=== PATIENT | female | born 2000 | race Caucasian/White ===

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

== ENCOUNTER 2019-01-13 18:00 | Emergency (ER) | payer MEDICAID, SELFPAY ==
[2019-01-13 18:01] VITALS: BP 137/78; PULSE 102; RESP 16; TEMP 36.7; O2SAT 98; BMI 31.6
--- NOTE | 2019-01-13 18:45 | CT_ITS ---
STUDY: CT ABDOMEN AND PELVIS WITH CONTRAST REASON FOR EXAM: Female, 18 years old. Nausea vomiting RADIATION DOSAGE (If Supplied By Facility): DLP = ( 1072.60 ) mGycm TECHNIQUE: Transaxial images were obtained from the dome of the diaphragm to the symphysis pubis with oral contrast. 100 ml of Isovue 300 contrast was administered. Sagittal and coronal images were reconstructed. Individualized dose optimization techniques were used for this CT. COMPARISON: CT abdomen and pelvis August 08, 2017 FINDINGS: The visualized lung bases are clear. The visualized portions of the heart and pericardium are within normal limits. There are no calcified gallstones present. The liver is within normal limits. There are no suspicious hepatic lesions. The spleen is normal in size. The pancreas is within normal limits. The adrenal glands are within normal limits. There are no obstructing renal stones. There is no hydronephrosis. There are no focal renal lesions. Normal visualized stomach. There is no evidence of bowel obstruction. There is mild lower pelvic edema adjacent to the rectosigmoid region at the cul-de-sac. The appendix is normal. The aorta is normal in caliber. There is no abdominal or pelvic free air, fluid collection or lymphadenopathy. There are no destructive osseous lesions. CT/Abdomen/Pelvis WITH Contrast IMPRESSION: Mild lower pelvic edema adjacent to the rectosigmoid region at the cul-de-sac. Considerations include physiologic, mild proctitis/colitis, or gynecological related process. Clinical correlation is recommended. Electronically Signed: Yandel Perkins, at 21:09 EDT Tel , Service support ,
--- NOTE | 2019-01-13 18:47 | ED.VISSUMM ---
- ER Visit Summary Date of Service: 01/13/19 Chief Complaint: Abdominal pain History of Present Illness: The patient is a 18 F presenting with abdominal pain, nausea, vomiting, diarrhea. She states this started on Friday. She has had approximately 6 episodes of vomiting today and 3 episodes of diarrhea. She denies blood in her stool or emesis. She has had fever at home. She denies sick contacts. Denies recent antibiotics. Denies recent travel. Denies other complaints. Physical Examination: Vitals are stable. Patient is afebrile. Alert no acute distress. HEENT exam dry mucous membranes Neck is supple. Lungs are clear and equal bilaterally. Heart is regular and tachycardic Abdomen is soft diffuse tenderness with no rebound or guarding Extremities are unremarkable. Skin is warm and dry. Remainder of exam is unremarkable. Emergency Department Course and Treatment: Patient was given IV fluids, morphine, Zofran. CBC, chemistries unremarkable. Liver lipase are normal. hCG negative. CT abdomen pelvis shows mild lower pelvic edema adjacent to the rectosigmoid region at the cul-de-sac. Considerations include physiologic, mild proctitis/colitis, or gynecological related process. Pelvic ultrasound shows no appreciable fluid in the pelvis. Nabothian cyst at the cervix. On reevaluation, patient is resting comfortably. She is given a prescription for Zofran. She is advised to follow-up with her primary care physician. Advised return to ED if worsening complaints. Disposition: Discharge home Impression: Vomiting and diarrhea This note was generated with [employer] dictation software. It may contain incorrect words, spelling, and punctuation that were not noted in review of the chart prior to signing ED Disposition - Plan for ED Patient: Instructions: ED Vomiting Diarrhea Nonspecific Ad Prescriptions: Ondansetron [Zofran Odt] 4 mg PO Q8H PRN PRN #10 tablet PRN Reason: Nausea Referrals: Colleen Bray MD [Primary Care Provider] -
[2019-01-13] MEDS: Ondansetron 4 MG/2 ML Vial IV ×2 (19:13→21:24)
[2019-01-13] MEDS: Morphine 4 MG/ML Syringe IV (19:13)
[2019-01-13] MEDS: 0.9% Normal Saline 1,000 ML 999 ML IV (19:13)
[2019-01-13 19:40] LABS: Internal QC Validated? YES +Cl - CLEAR BKGD; Pregnancy, Serum, hCG Quali. NEGATIVE Negative
[2019-01-13 19:41] LABS: ALB/GLOB Ratio 1.2 RATIO (0.9-2.4); AST(SGOT) 10 U/L (15-37); Alanine Aminotransfer ALT/SGPT 15 U/L (13-56); Albumin, Serum 4.1 g/dL (3.2-5.0); Alkaline Phosphatase 88 U/L (45-117); Anion Gap 3 (5-15); BUN 8 mg/dL (7-18); BUN/Creat Ratio 11.4 RATIO (10-20); Calcium,Total 9.2 mg/dL (8.5-10.1); Chloride 107 mmol/L (98-107); EST Glomerular Filtration Rate 113 mL/min (>60); Est Glom Filt Rate - Afr Amer 137 mL/min (>60); Estimated Creatinine Clearance 121.01 ml/min; Globulin 3.5 g/dL (2.2-4.2); Glucose 97 mg/dL (74-106); Lipase 159 U/L (73-393); Potassium 3.7 mmol/L (3.5-5.1); Protein, Total 7.6 g/dL (6.4-8.2); Sodium Level 140 mmol/L (136-145)
[2019-01-13 20:04] LABS: Absolute Lymphocyte Count 2.82 X10^3/ul (0.83-4.51); Absolute Neutrophil Count 5.6 X10^3/uL (2.0-7.7); Basophil# 0.01 X10^3/uL; Basophil% 0.1 % (0-1); Eosinophil# 0.05 X10^3/uL; Eosinophils% 0.6 % (0-5); Hematocrit 39.8 % (37-47); Hemoglobin 13.3 g/dl (12.0-15.0); Lymphocyte # 2.82 X10^3/ul (4.0); Lymphocyte % 31.5 % (19-41); Mean Corp Hgb Conc 33.4 g/gl (32-36); Mean Corpuscular Hgb 30.2 pg (27.0-32.0); Mean Corpuscular Volume 90.2 fL (81-99); Mean Platelet Vol. 10.6 fl (6.2-12.0); Monocyte# 0.48 X10^3/uL; Monocyte% 5.4 % (0-10); Neutrophil # 5.57 X10^3/uL (2.7-7.7); Neutrophil % 62.3 % (47-70); Platelet Count 235 K/mm3 (150-450); RBC Distribution Width CV 12.2 % (11.6-14.6); RBC Distribution Width SD 39.9 fl (35.1-43.9); Red Blood Count 4.41 M/mm3 (4.2-5.4); White Blood Count 8.9 K/mm3 (4.4-11.0)
[2019-01-13 20:08] LABS: POSITIVE COUNT NO; POSITIVE DIFFERENTIAL NO; POSITIVE MORPHOLOGY NO
[2019-01-13 20:29] LABS: Mucous, Urine 0 SEEN /hpf (<or=2+); Red Blood Cells-Urine 0 SEEN /hpf (0-5)
[2019-01-13 20:57] LABS: Color, Urine Yellow (Yellow); Glucose, Dipstick Normal (Normal); Ketone-Dipstick Negative (Negative); Leukocyte Esterase-Dipstick 25 /ul (Negative); Nitrite-Dipstick Negative (Negative); Occult Blood-Urine Negative /ul (Negative); Protein-Dipstick Negative (Negative); Urine Bilirubin Dipstick Negative (Negative); Urine Clarity Clear (Clear); Urine Urobilinogen Normal (Normal)
--- NOTE | 2019-01-13 21:13 | US_ITS ---
STUDY: ULTRASOUND OF THE FEMALE PELVIS - COMPLETE REASON FOR EXAM: Female, 18 years old. Pelvic fluid LMP: January 03, 2019 TECHNIQUE: Transvaginal TECHNICAL QUALITY: Adequate. COMPARISON: None. FINDINGS: The uterus is anteverted and is in a midline position. The uterus measures 6.1 x 3.9 x 3.2 cm. Nabothian cyst at the uterine cervix. The endometrium measures 3 mm in thickness, and is hyperechoic. There is no demonstrated endometrial mass. There is no demonstrated myometrial mass. The patient does not have an I.U.D. The right ovary is visualized. The right ovary measures 3.2 x 2.1 x 2.4 cm. There is no right ovarian cyst or ovarian mass. There is no visualized right adnexal mass or complex lesion. There is normal arterial and normal venous vascularity. The left ovary is visualized. The left ovary measures 2.4 x 2.0 x 1.5 cm. There is no left ovarian cyst or ovarian mass. There is no visualized left adnexal mass or complex lesion. There is normal arterial and normal venous vascularity. There is no fluid in the cul-de-sac. US/Transvaginal Non- IMPRESSION: No appreciable fluid in the pelvis. Nabothian cyst at the cervix. Electronically Signed: Oz Márquez DO at 21:56 EDT Tel [phone], Service support ,
[2019-01-13 21:28] LABS: Squamous Epithelial Cells - UA 0-5 SEEN /hpf (5-10); White Blood Cells 0-5 SEEN /hpf (0-5)
[2019-01-13 21:29] LABS: Amorphous Sediment 1+; Bacteria RARE /hpf (None Seen)
--- NOTE | 2019-01-13 22:25 | ED.DEP ---
ED Disposition - Plan for ED Patient: Instructions: ED Vomiting Diarrhea Nonspecific Ad Prescriptions: Ondansetron [Zofran Odt] 4 mg PO Q8H PRN PRN #10 tablet PRN Reason: Nausea Referrals: Colleen Bray MD [Primary Care Provider] -
[2019-01-13 22:35] VITALS: BP 122/91; PULSE 97; RESP 16; O2SAT 99
--- NOTE | 2019-01-13 22:35 | ED.RN ---
PT GIVEN WRITTEN AND VERBAL DISCHARGE INSTRUCTIONS AND HOME GOING PRESCRIPTIONS. PT VERBALIZES UNDERSTANDING AND DENIES ANY FURTHER QUESTIONS. PT EDUCATED NOT TO DRIVE AFTER HAVING MORPHINE FOR SIX HOURS. PT REPORTS HER STEP FATHER IS WAITING FOR HER IN THE PARKING LOT. PT DRESSES SELF AND AMBULATES OUT OF DEPT BY SELF.
== END 2019-01-13 22:38 | disposition home or self-care (01) ==
LOC: ED 18:49
PROVIDERS: Emergency Provider Emergency Medicine; Family Provider Pediatrics; PCP Pediatrics
DX: R11.2 Nausea with vomiting, unspecified (principal); R19.7 Diarrhea, unspecified; R10.9 Unspecified abdominal pain; N88.8 Other specified noninflammatory disorders of cervix uteri; J45.909 Unspecified asthma, uncomplicated; Z72.0 Tobacco use
CPT/HCPCS: 74177; 76830; 80053; 81001; 83690; 84703; 85025; 93976; 96361; 96374; 96375; 96376; 99283; J7030; Q9967; A4216; J2405

== ENCOUNTER 2019-01-27 17:35 | Emergency (ER) | payer MEDICAID, SELFPAY ==
[2019-01-27 17:36] VITALS: BP 140/85; PULSE 133; RESP 28; TEMP 36.3; O2SAT 99; BMI 31.8
[2019-01-27 18:02] VITALS: O2SAT 98
--- NOTE | 2019-01-27 18:22 | RAD_ITS ---
STUDY: X-RAY CHEST REASON FOR EXAM: Female, 19 years old. Chest pain TECHNIQUE: PA and lateral views of the chest COMPARISON: X-Ray Chest July 22, 2017 FINDINGS: The lungs are clear. There are no pleural effusions. There is no pneumothorax. The heart is normal in size. The visualized osseous structures are within normal limits. RAD/Chest PA and Lateral IMPRESSION: No acute thoracic pathology. Electronically Signed: Yandel Perkins, at 19:12 EDT Tel , Service support ,
[2019-01-27] MEDS: Ipratropium/Albuterol Sulfate 3 ML AMPUL.NEB INHALATION (18:30)
[2019-01-27 18:31] VITALS: PULSE 125; RESP 18
--- NOTE | 2019-01-27 18:33 | ED.DCSUM_ITS ---
- ER Visit Summary Date of Service: 01/27/19 Chief Complaint: Asthma History of Present Illness: The patient is a 19 F who presents with asthma attack that has been getting worse over the past 4 days. Patient saw her primary care physician who prescribed prednisone. Patient states she has been taking the prednisone as well as her inhalers and aerosols with minimal relief. Patient saw her primary care physician again yesterday who gave her a steroid injection. Patient states this is not helped. Patient states her breathing is worse with any exertion. Patient admits to a cough with some clear sputum. Patient admits to some postnasal drainage and rhinorrhea. Patient states her chest feels tight. Patient denies any fevers or chills. Physical Examination: Vital signs are stable except for tachycardia of 133 and a tachypnea of 28. Patient is afebrile. Patient is in no acute distress. Oral mucosa is pink and moist. Neck is supple. Trachea is midline. There is no JVD noted. Heart was regular and tachycardic. Lungs showed scattered rhonchi. There is good respiratory effort noted. Abdomen is soft and nontender. Bowel sounds are normal. Cranial nerves II through XII are intact. There are no focal motor or sensory deficits noted. Test Results: PA and lateral chest x-ray was obtained. There is no acute cardiopulmonary process. CBC showed a slight leukocytosis of 12.6. D-dimer was normal at less than 0.27. Basic metabolic profile was normal. Emergency Department Course and Treatment: Patient was given a DuoNeb aerosol initially. Patient had minimal relief of her shortness of breath with this. Patient was given a repeat albuterol aerosol. Patient was instructed to continue her prednisone as previously prescribed. Patient was instructed to follow-up with her primary care physician in 3 to 5 days. Patient and family understood and were agreeable with the plan. All questions were answered. Disposition: Discharge home Impression: Dyspnea This note was generated with [employer] dictation software. It may contain incorrect words, spelling, and punctuation that were not noted in review of the chart prior to signing ED Disposition - Plan for ED Patient: Disposition: Home or Assisted Living Diagnosis: Dyspnea Instructions: ED Reactive Airway Disease Referrals: Colleen Bray MD [Primary Care Provider] - 3-5 Days
[2019-01-27 18:48] LABS: Absolute Lymphocyte Count 0.65 X10^3/ul (0.83-4.51); Absolute Neutrophil Count 11.6 X10^3/uL (2.0-7.7); Hematocrit 37.9 % (37-47); Lymphocyte # 0.65 X10^3/ul (4.0); Lymphocyte % 5.1 % (19-41); Mean Corp Hgb Conc 34.3 g/gl (32-36); Mean Corpuscular Hgb 30.5 pg (27.0-32.0); Mean Platelet Vol. 10.1 fl (6.2-12.0); Monocyte# 0.36 X10^3/uL; Monocyte% 2.8 % (0-10); Neutrophil % 91.9 % (47-70); Platelet Count 263 K/mm3 (150-450); RBC Distribution Width CV 12.3 % (11.6-14.6); RBC Distribution Width SD 39.3 fl (35.1-43.9); Red Blood Count 4.26 M/mm3 (4.2-5.4); White Blood Count 12.6 K/mm3 (4.4-11.0)
[2019-01-27 18:49] LABS: POSITIVE COUNT NO; POSITIVE DIFFERENTIAL NO; POSITIVE MORPHOLOGY NO
[2019-01-27 19:03] LABS: Anion Gap 6 (5-15); BUN 8 mg/dL (7-18); BUN/Creat Ratio 9.7 RATIO (10-20); Chloride 108 mmol/L (98-107); Creatinine, Serum 0.82 mg/dL (0.55-1.02); EST Glomerular Filtration Rate 94 mL/min (>60); Est Glom Filt Rate - Afr Amer 114 mL/min (>60); Estimated Creatinine Clearance 102.45 ml/min; Glucose 141 mg/dL (74-106); Potassium 3.8 mmol/L (3.5-5.1); Sodium Level 139 mmol/L (136-145)
[2019-01-27 19:13] LABS: D-Dimer Quantitative (DVT/PE) < 0.27 FEU/ug/m (0.27-0.49)
[2019-01-27 19:20] VITALS: PULSE 113; RESP 24; O2SAT 100
[2019-01-27] MEDS: Albuterol 2.5 MG/3 ML VIAL.NEB. INHALATION (20:58)
[2019-01-27 20:59] VITALS: PULSE 125; RESP 20
[2019-01-27 21:24] VITALS: BP 142/74; PULSE 113; RESP 19; O2SAT 98
== END 2019-01-27 21:25 | disposition home or self-care (01) ==
PROVIDERS: Emergency Provider Emergency Medicine; Family Provider Pediatrics; PCP Pediatrics
DX: R06.00 Dyspnea, unspecified (principal); J45.909 Unspecified asthma, uncomplicated; D68.0 Von Willebrand disease; Z72.0 Tobacco use
CPT/HCPCS: 71046; 80048; 85025; 85379; 94640; 99284; A4216

== ENCOUNTER 2019-02-16 17:20 | Emergency (ER) | payer MEDICAID, SELFPAY ==
[2019-02-16 17:21] VITALS: BP 124/71; PULSE 103; RESP 16; TEMP 37.1; O2SAT 98; BMI 32.4
--- NOTE | 2019-02-16 18:50 | RAD_ITS ---
STUDY: X-RAY - LEFT WRIST REASON FOR EXAM: Female, 19 years old. Trauma TECHNIQUE: 3 view(s) of the wrist were obtained. COMPARISON: None. FINDINGS: There is no evidence of fracture or dislocation. There are no significant degenerative changes. There are no radiodense foreign bodies. RAD/Wrist min 3 Views IMPRESSION: No fracture or dislocation. Electronically Signed: Yandel Perkins, at 19:23 EDT Tel , Service support ,
--- NOTE | 2019-02-16 18:50 | RAD_ITS ---
STUDY: X-RAY - LEFT ELBOW REASON FOR EXAM: Female, 19 years old. Trauma TECHNIQUE: 3 view(s) of the elbow. COMPARISON: None. FINDINGS: There is no evidence of fracture or dislocation. There are no significant degenerative changes. There are no radiodense foreign bodies. RAD/Elbow min 3 Views IMPRESSION: No fracture or dislocation. Electronically Signed: Yandel Perkins, at 19:21 EDT Tel , Service support ,
--- NOTE | 2019-02-16 18:50 | RAD_ITS ---
STUDY: X-RAY - LEFT RADIUS AND ULNA REASON FOR EXAM: Female, 19 years old. Trauma TECHNIQUE: 2 view(s) of the forearm. COMPARISON: None. FINDINGS: There is no evidence of fracture or dislocation. There are no significant degenerative changes. There are no radiodense foreign bodies. RAD/Forearm 2 Views IMPRESSION: No fracture or dislocation. Electronically Signed: Yandel Perkins, at 19:23 EDT Tel , Service support ,
--- NOTE | 2019-02-16 18:53 | ED.DCSUM_ITS ---
- ER Visit Summary Date of Service: 02/16/19 Chief Complaint: Left upper extremity injury History of Present Illness: The patient is a 19 F presenting with left upper extremity injury. Patient states she turned too quickly. She ran into a cabinet. She hit her head but did not lose consciousness. She braced herself with her left upper extremity. She has tenderness to her left wrist, forearm and elbow. She is right-handed. No other injuries. Physical Examination: Vitals are stable. Patient is afebrile. Alert no acute distress. HEENT exam is unremarkable. Neck is supple. Lungs are clear and equal bilaterally. Heart is regular rate and rhythm. Extremities left forearm and wrist tenderness with active full range of motion. Neurovascularly intact distally. Skin is warm and dry. No focal neurologic deficit. Remainder of exam is unremarkable. Emergency Department Course and Treatment: X-ray left wrist, forearm, elbow showed no acute process. Patient has an allergy to NSAIDs and was advised to take Tylenol. Advised to ice and elevate. Advised to follow-up with her primary care physician. Advised to return to the ED for worsening complaints. Disposition: Discharge home Impression: Left upper extremity injury This note was generated with [employer] dictation software. It may contain incorrect words, spelling, and punctuation that were not noted in review of the chart prio r to signing ED Disposition - Plan for ED Patient: Disposition: Home or Assisted Living Instructions: ED Contusion Upper Ext Referrals: Colleen Bray MD [Primary Care Provider] -
--- NOTE | 2019-02-16 19:33 | ED.DEP ---
ED Disposition - Plan for ED Patient: Instructions: ED Contusion Upper Ext Referrals: Colleen Bray MD [Primary Care Provider] -
== END 2019-02-16 19:56 | disposition home or self-care (01) ==
LOC: ED 19:26
PROVIDERS: Emergency Provider Emergency Medicine; Family Provider Pediatrics; PCP Pediatrics
DX: S40.022A Contusion of left upper arm, initial encounter (principal); W22.03XA Walked into furniture, initial encounter; Y93.9 Activity, unspecified; Y92.89 Other specified places as the place of occurrence of the external cause; Y99.8 Other external cause status; Z72.0 Tobacco use
CPT/HCPCS: 73080; 73090; 73110; 99282

== ENCOUNTER 2019-05-16 21:09 | Emergency (ER) | payer MEDICAID, SELFPAY ==
[2019-05-16 21:11] VITALS: BP 138/90; PULSE 89; RESP 16; TEMP 36.3; O2SAT 100; BMI 32.5
--- NOTE | 2019-05-16 21:28 | ED.VISSUMM ---
- ER Visit Summary Date of Service: 05/16/19 Chief Complaint: [Dental pain] History of Present Illness: The patient is a 19 F [presents to the emergency department with complaint of dental pain that started yesterday although she is had pain for some time but became more severe yesterday. Patient states that she saw her dentist about a month ago and was started on amoxicillin and was told that she had some wisdom teeth erupting and that she would need to have her wisdom teeth removed so she was referred to a oral surgeon in [facility]. Patient currently on amoxicillin. She denies any fevers. She is describes pain radiating into her right ear.] Physical Examination: [HEENT-PERRLA, EOMI. Cranial nerves II through XII grossly intact. TMs clear. Mucous membranes moist. No adenopathy. Edition-patient has tenderness to the right upper molars on palpation. I am unable to visualize an erupting molar on the right side. There is no gingival erythema or abscess noted. There is no facial cellulitis. No edema noted. Cardiovascular-regular rate and rhythm without murmur or ectopy Lungs-clear to auscultation, chest wall stable without crepitus or subcu emphysema Abdomen-normoactive bowel sounds, soft, nontender, no rebound or rigidity, no peritoneal signs. Extremities-intact ?4, normal range of motion, normal pulses, atraumatic] Test Results: [None indicated] Emergency Department Course and Treatment: [] Treatment Plan: [Patient will be given a prescription for [place] for pain and advised to follow-up with your surgeon within next 3 to 5 days.] Disposition: [Discharged home in stable condition.] Impression: [Odontalgia] This note was generated with [employer] dictation software. It may contain incorrect words, spelling, and punctuation that were not noted in review of the chart prior to signing ED Disposition - Plan for ED Patient: Referrals: Colleen Bray MD [Primary Care Provider] -
--- NOTE | 2019-05-16 21:30 | DCINST.ED_ITS ---
ED Disposition - Plan for ED Patient: Instructions: Dental Pain Prescriptions: Hydrocodone Bitart/Apap 5-325 [[place] 5MG-325MG] 1 tab PO Q4H PRN PRN 2 Days #20 tab PRN Reason: Pain Prescription Printed Referrals: Colleen Bray MD [Primary Care Provider] - Additional Instructions: see your dentist
[2019-05-16] MEDS: HYDROcodone Bitartrate/Apap 5/325 Tablet PO (22:01)
== END 2019-05-16 22:01 | disposition home or self-care (01) ==
LOC: ED 21:32
PROVIDERS: Emergency Provider Emergency Medicine; Family Provider Pediatrics; PCP Pediatrics
DX: K08.89 Other specified disorders of teeth and supporting structures (principal); D68.0 Von Willebrand disease; Z72.0 Tobacco use
CPT/HCPCS: 99283

== ENCOUNTER 2019-06-02 11:01 | Emergency (ER) | payer MEDICAID, SELFPAY ==
[2019-06-02 11:02] VITALS: BP 137/74; PULSE 109; RESP 22; TEMP 36.5; O2SAT 96; BMI 31.9
--- NOTE | 2019-06-02 11:29 | ED.DCSUM_ITS ---
- ER Visit Summary Date of Service: 06/02/19 Chief Complaint: Nausea with diarrhea and abdominal cramps. History of Present Illness: The patient is a 19 F young female past medical history of von Willebrand's disease, endometriosis and ovarian cysts. States that for 2 to 3 days she has had nausea limited vomiting and diarrhea. No dysuria. No fever. Last menstrual period was 05/22/2019. She denies any vaginal bleeding or discharge. She denies any fever. Physical Examination: Vital signs are stable afebrile. No acute distress. Young female. HEENT exam unremarkable. Moist week's membranes. TMs posterior pharynx normal. Neck nontender no lymphadenopathy. No meningismus. Lungs clear to auscultation bilaterally. Heart regular rhythm no murmur. Abdomen soft nontender normal bowel sounds no peritoneal signs. Patient moving all 4 extremities. Neurovascular intact. Neurologically she is awake and alert with no focal motor deficits. Skin is unremarkable. Back nontender. No rashes. Test Results: None Emergency Department Course and Treatment: History and exam are consistent with viral syndrome. Treatment Plan: Fluids and rest. Zofran as needed for nausea. She requested a work excuse. Disposition: Discharge Impression: Acute viral syndrome This note was generated with [email or web address] dictation software. It may contain incorrect words, spelling, and punctuation that were not noted in review of the chart prior to signing ED Disposition - Plan for ED Patient: Referrals: Colleen Bray MD [Primary Care Provider] -
--- NOTE | 2019-06-02 11:32 | ED.DEP ---
ED Disposition - Plan for ED Patient: Disposition: Home or Assisted Living Instructions: VIRAL SYNDROME (Adult) Prescriptions: Ondansetron [Zofran Odt] 4 mg PO Q8H PRN PRN #7 tab PRN Reason: Nausea Prescription Printed Referrals: Colleen Bray MD [Primary Care Provider] - 3-5 Days if not improving Additional Instructions: Zofran as needed for nausea. Plenty of fluids and rest. Follow-up if not improving.
[2019-06-02 11:42] VITALS: BP 122/74; PULSE 62; RESP 15; O2SAT 98
== END 2019-06-02 11:43 | disposition home or self-care (01) ==
LOC: ED 11:37
PROVIDERS: Emergency Provider Emergency Medicine; Family Provider Pediatrics; PCP Pediatrics
DX: B34.9 Viral infection, unspecified (principal); D68.0 Von Willebrand disease; R11.2 Nausea with vomiting, unspecified; R19.7 Diarrhea, unspecified; J45.909 Unspecified asthma, uncomplicated
CPT/HCPCS: 99283

== ENCOUNTER 2019-07-01 08:28 | Day surgery (SDC) | payer MEDICAID, SELFPAY ==
[2019-06-28 10:25] LABS: Hematocrit 40.2 % (37-47); Hemoglobin 13.4 g/dL (12.0-15.0); Mean Corp Hgb Conc 33.3 g/dL (32-36); Mean Corpuscular Hgb 30.4 pg (27.0-32.0); Mean Corpuscular Volume 91.2 fL (81-99); Mean Platelet Vol. 10.3 fl (6.2-12.0); Platelet Count 215 K/mm3 (150-450); RBC Distribution Width CV 11.9 % (11.6-14.6); RBC Distribution Width SD 39.8 fl (35.1-43.9); Red Blood Count 4.41 M/mm3 (4.2-5.4); White Blood Count 5.1 K/mm3 (4.4-11.0)
[2019-06-28 10:33] LABS: Partial Thromboplast Time 27.1 Seconds (24.1-36.2); Prothrombin Time (Protime)PT. 13.3 SECONDS (11.7-14.9)
[2019-06-28 10:56] LABS: AST(SGOT) 12 U/L (15-37); Alanine Aminotransfer ALT/SGPT 16 U/L (13-56); Albumin, Serum 3.9 g/dL (3.2-5.0); Alkaline Phosphatase 88 U/L (45-117); Globulin 3.2 g/dL (2.2-4.2); Protein, Total 7.1 g/dL (6.4-8.2)
[2019-07-01] VITALS (9 sets, daily range): BP systolic 102–134; BP diastolic 45–71; PULSE 78–91; RESP 15–16; TEMP 36.7–37.4; O2SAT 96–100; BMI 31.8
--- NOTE | 2019-07-01 05:17 | PCM.HPOB.BLA ---
- Problem List (1) Chronic female pelvic pain Status: Acute (2) Endometriosis of pelvic peritoneum Status: Acute History and Physical Date of Admission: 07/01/19 Surgical History and Physical Date: 06/29/2019 Name: KEIRA GARCIA Age: 19 Date of : 2000 Keira Garcia, a 19 year old female 0 0 0 0 0, presents for Diagnostic laparoscopy, surgical treatment of endometriosis on July 01, 2019 at 10:15. -- Pt with longstanding hx chronic pelvic pain due to endometriosis, confirmed on laparoscopy 08/2017 with resection. Prior to that failed NSAIDs, SHARMIN, Ortho Evra, oral Provera and luteal phase progesterone. Previously declines LVG IUD. She had improvement of pain following resection. Pain however started worsening again approximately 1 year after surgery. No improvement of symptoms with nortryptyline and did not tolerate [place]. She has recurrence of lower abdominal pain and dyspareunia. Plans for diagnostic laparoscopy, surgical treatment of endometriosis. [facility] MEDICATIONS HISTORY: Patient is also takin. Amicar 250 mg/mL (25 %) oral solution, As Directed 2. Stimate 150 mcg/spray (0.1 mL) nasal spray, As Directed 3. Zofran 8 mg tablet, As Directed 4. Vistaril 25 mg capsule, As Directed 5. albuterol sulfate 0.63 mg/3 mL solution for nebulization ALLERGIES: Singulair, Numbness, NSAIDS, Bleeding (non-specific), Reglan and Skin irritation Infections - Chicken pox Illnesses - psychosis, mood disorder, asthma, Von Willebrand Accidents - None Hospitalizations - pneumonia as a child immunodepressed - freq viral/bacterial infections; Review of Systems: GENERAL - Denies fever, or chills SKIN - Denies skin changes EYES - Denies visual changes EARS - Denies difficulty hearing NOSE - Denies nasal congestion or bleeding MOUTH - Denies sore throat or difficulty swallowing NECK - Denies pain or swelling RESPIRATORY - Denies shortness of breath or wheezing CARDIOVASCULAR - Denies palpitations or chest pain GASTROINTESTINAL - Denies nausea, vomiting, diarrhea, constipation GENITOURINARY - Denies dysuria, frequency of urination, incontinence of urine MUSCULOSKELETAL - Denies joint or muscle pain NEUROLOGICAL - Denies localized numbness or weakness PSYCHIATRIC - Denies depression or anxiety ENDOCRINE - Denies heat or cold intolerance, weight loss or gain HEMATO-IMMUNOLOGIC - Denies excesive bleeding with cuts SOCIAL HISTORY: Alcohol Use - denies drinking Smoking - used to smoke but quit Diet - no special diet Lifestyle - moderate stress lifestyle Exercise - minimal Seat Belt Use - always 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 Drug Use - denies use of street drugs Sexual Activity - single sexual partner Residence - lives with brother and sister in law Hours Worked - 40 hours per week Control - condoms FAMILY HISTORY: MENSTRUAL HISTORY: LMP Known?- DefiniteAmount/Duration - 4 days, Regularity - Irregular, couple days late, Frequency - monthly days, Prior Menses - 10/16/2016, LMP - 06/11/19, Age Onset Menarche - 9 PAST PREGNANCIES: Total Pregnancies - 0; Full Term Pregnancies - 0; Premature - 0; Abortions, Induced - 0; Abortions, Spontaneous - 0; Ectopics - 0; Multiple Births - 0; Living Children - 0 SURGICAL HISTORY: 1. 08/21/2017 exploratory lap treatment of endometriosis ; - PHYSICAL EXAM BP- 100/72 Sitting, Right arm, large cuff Temp- 98.1 Taken Orally Weight- 197.97701 lbs Height- 65 inch BMI:32.85 CONSTITUTIONAL - NAD, well nourished, and well developed SKIN - No rash, lesions, or ulcers HEENT - normocephalic, atraumatic, sclerae anicteric LUNGS - CTA x2 without wheezes, crackles or rales CARDIAC - Regular rate and rhythm without rubs, murmurs, or gallops ABDOMEN - Without hepatosplenomegaly, distention, masses, rebound, or guarding; normal bowel sounds; no hernias EXTREMITIES - No edema or calf tenderness NEUROLOGICAL - normal gait, normal balance, normal motor PSYCHIATRIC - A and O to time, place, person, mood and affect External Genitial Vagina - non-tender without lesions Urethra/Urethral Meatus - non-tender Bladder - non-tender Vagina - vaginal chavez are pink and moist without loss of rugae and no evidence of atropy Cervix - Marked CMT Uterus - multiparous size 6 cm & wt 75-125 g Adnexa - clear without massess or tenderness Laboratory Tests 07/01/19 07/01/19 07/01/19 Range/Units 10:00 10:00 10:00 WBC 5.1 (4.4-11.0) K/mm3 RBC 4.41 (4.2-5.4) M/mm3 Hgb 13.4 (12.0-15.0) g/dL Hct 40.2 (37-47) % MCV 91.2 (81-99) fL MCH 30.4 (27.0-32.0) pg MCHC 33.3 (32-36) g/dL RDW Std Deviation 39.8 (35.1-43.9) fl RDW Coeff of Vanessa 11.9 (11.6-14.6) % Plt Count 215 (150-450) K/mm3 MPV 10.3 (6.2-12.0) fl PT 13.3 (11.7-14.9) SECONDS INR 1.0 APTT 27.1 (24.1-36.2) Seconds Total Bilirubin 0.40 (0.20-1.00) mg/dL Direct Bilirubin 0.10 (0.00-0.30) mg/dL AST 12 L (15-37) U/L ALT 16 (13-56) U/L Alkaline Phosphatase 88 (45-117) U/L Total Protein 7.1 (6.4-8.2) g/dL Albumin 3.9 (3.2-5.0) g/dL Globulin 3.2 (2.2-4.2) g/dL Blood Type Antibody Screen 06/28/19 Range/Units 09:56 WBC (4.4-11.0) K/mm3 RBC (4.2-5.4) M/mm3 Hgb (12.0-15.0) g/dL Hct (37-47) % MCV (81-99) fL MCH (27.0-32.0) pg MCHC (32-36) g/dL RDW Std Deviation (35.1-43.9) fl RDW Coeff of Vanessa (11.6-14.6) % Plt Count (150-450) K/mm3 MPV (6.2-12.0) fl PT (11.7-14.9) SECONDS INR APTT (24.1-36.2) Seconds Total Bilirubin (0.20-1.00) mg/dL Direct Bilirubin (0.00-0.30) mg/dL AST (15-37) U/L ALT (13-56) U/L Alkaline Phosphatase (45-117) U/L Total Protein (6.4-8.2) g/dL Albumin (3.2-5.0) g/dL Globulin (2.2-4.2) g/dL Blood Type O POSITIVE Antibody Screen NEGATIVE ASSESSMENT/PLAN: 1. Endometriosis, Unspecified, Pelvic Pain and Unspec Plan for diagnostic laparoscopy, surgical treatment of endometriosis Reviewed procedural risks, benefits, alternatives Consents signed and reviewed Pt given opportunity to ask questions and questions answered to her satisfaction hx vWD - Stimate morning of surgery
[2019-07-01 08:51] LABS: Internal QC Validated? YES +Cl - CLEAR BKGD; Pregnancy, Urine Negative Negative
[2019-07-01] MEDS: Lactated Ringers 1,000 ML 100 ML IV ×2 (08:56→13:58)
--- NOTE | 2019-07-01 10:15 | EMB_PTH ---
PATIENT: KEIRA GUARDADO LOC: [facility] [place] U#:[id number] AGE/SX: 19/F ROOM: RE07/01/[address]: Dr. Talia Osuna MD : 2000 BED: DIS: 07/01/2019 SPEC #: [id number] RECD: 07/01/19 16:21 STATUS: JORGE TIMBO #: [id number] LASHAUN: 07/01/19 10:[address]: Talia Le DEPT: SURGICAL PATHOLOGY RECD BY: Jhonny Sifuentes ENTERED: 07/02/19 08:33 SP TYPE: ENDOM BX/C DANIELLE DR: Dr. Colleen Bray MD Tissues: A - Endometrium, NOS B - Endometrium, NOS C - Endometrium, NOS D - Endometrium, NOS E - Endometrium, NOS Procedures: Surgery Specimen Level IV HEADER OPERATION: Diagnostic laparoscopy with treatment of endometriosis PRE-OP DIAGNOSIS: Endometriosis, pelvic pain TISSUE SUBMITTED: A - Endometriosis right uterosacral, B - Endometriosis left uterosacral, C - Endometriosis left ovarian fossa, D - Endometriosis anterior cul-de-sac peritoneum, E - Endometriosis left colonic MICROSCOPIC DIAGNOSIS A. Soft tissue, right uterosacral lesion, biopsy: Fibrofatty tissue with focal chronic inflammation. B. Soft tissue, left uterosacral lesion, biopsy: Fibrofatty tissue with chronic inflammation. C. Left ovarian fossa tissue, biopsy: Fibrofatty tissue with focal chronic inflammation. D. Anterior cul-de-sac peritoneum, biopsy: Fibrofatty tissue with focal endometriosis. E. Left colonic tissue, biopsy: Fibrofatty tissue with fat necrosis and associated fibrosis, congested. AM:cesar 07/05/19 COMMENT Case has been reviewed in consultation with Dr. An who concurs with the above diagnosis. IDC:SJ MICROSCOPIC DESCRIPTION Slides are reviewed. GROSS DESCRIPTION A - Received in fixative is one container labeled with the patient's name and designated endometriosis right uterosacral. The specimen consists of two pieces of jordan, hemorrhagic soft tissue that in aggregate measure 1.5 x 1 x 0.3 cm. The specimen is totally submitted in one cassette. B - Received in fixative is one container labeled with the patient's name and designated endometriosis left uterosacral. The specimen consists of a piece of jordan soft tissue measuring 1 x 0.5 x 0.3 cm. The specimen is totally submitted in one cassette. C - Received in fixative is one container labeled with the patient's name and designated endometriosis left ovarian fossa. The specimen consists of one irregular fragment of light jordan soft tissue that measures 0.9 x 0.5 x 0.2 cm. The specimen is totally submitted in one cassette. D - Received in fixative is one container labeled with the patient's name and designated endometriosis anterior cul-de-sac peritoneum. The specimen consists of two pieces of jordan-pink soft tissue that in aggregate measure 1.5 x 0.7 x 0.3 cm. The specimen is totally submitted in one cassette. E - Received in fixative is one container labeled with the patient's name and designated endometriosis left colonic. The specimen consists of a piece of hemorrhagic soft tissue measuring 1.5 x 1 x 0.4 cm. The specimen is bisected and submitted entirely in one cassette. / SJ:rg 07/02/19 TC:5 CPT: 49421 x5
[2019-07-01] MEDS: Bupivacaine Mpf 0.5% 30 ML VIAL (11:08)
--- NOTE | 2019-07-01 15:08 | PCM.DC ---
- Discharge Diagnoses Current Active Problems: Endometriosis Reason(s) for Visit for Discharge Instructions: Laparoscopy You will use the following diet at home:: No restrictions Your food should be the consistency of: Regular Discharge Activity: Return to Normal Activity, May not drive while taking narcotic pain medications., May Shower, May Take a Tub Bath, - May resume sexual activity in: - - 2-4 weeks Lifting Restrictions: 10 lb Call your doctor if your incision/area has: Continuous Slow Oozing, Sudden Increased Bleeding, Increased Pain/ Swelling, Increased Redness Call your doctor if you observe: Fever of 101 or Higher, Inability to urinate, Inability to have a bowel movement, Using more than one pad per hour, Shortness of breath, Chest pain, Calf discomfort, Uncontrolled pain Suture Line Care: Avoid Pulling/Pushing Remove Dressing in (days):: 1 Cleanse incision/area with: Soap & Water Allergies/Adverse Reactions: Allergies aspirin Allergy (Verified 07/01/19 08:39) Other montelukast sodium [From Singulair] Allergy (Verified 07/01/19 08:39) Other NSAIDS (Non-Steroidal Anti-Inflamma Allergy (Verified 07/01/19 08:39) Other metoclopramide [From Reglan] Adverse Reaction (Verified 07/01/19 08:39) CARLTON LIKE MY SKIN WAS CRAWLING Medications to take at Discharge Albuterol Sulfate [Albuterol Sulfate Hfa] 2 puff INHALATION PRN PRN 01/13/19 Aminocaproic Acid [Amicar] 250 mg PO PRN PRN 01/13/19 Desmopressin Acetate [Stimate] 1 dose NASAL PRN PRN 01/13/19 Ondansetron [Zofran Odt] 4 mg PO Q8H PRN PRN #10 tablet 01/13/19 Vistaril 25 mg PO DAILY PRN 01/13/19 Loratadine 1 tab PO PRN PRN 01/27/19 Oxycodone [Oxyir] 5 mg PO Q6H PRN PRN 7 Days #20 tab 07/01/19 The following prescriptions were given: Oxycodone [Oxyir] 5 mg PO Q6H PRN PRN 7 Days #20 tab PRN Reason: Pain Score 6-10/10 Transmission Status: Received by [facility]/pharmacy #[id number] Primary Care Physician: Colleen Bray MD [Primary Care Provider] - Test Results: Test results from this visit will be discussed in further detail at your follow-up appointment, if applicable. Please Follow Up With: Talia Hargrove MD When: 2-4 weeks
--- NOTE | 2019-07-01 15:10 | PCM.OPRPT ---
Problem List (1) Chronic female pelvic pain Status: Acute (2) Endometriosis of pelvic peritoneum Status: Acute Report of Operation Date of Procedure: 07/01/19 Pre-Operative Diagnosis: Chronic pelvic pain, endometriosis Post-Operative Diagnosis: Chronic pelvic pain, endometriosis Surgery/Procedure Performed:: Operative laparoscopy, excision of pelvic endometriosis Description of Surgical Findings:: Stage II endometriosis - left ovarian fossa, bilateral uterosacral ligaments, anterior culdesac peritoneum Normal appearing tubes and ovaries telecommunications analyst: Ysabel Lopez Type of Anesthesia:: General Anesthesiologist: Octavio Roberts Specimen's removed: Right uterosacral biopsy. Left uterosacral biopsy. Left ovarian fossa peritoneum. Anterior culdesac peritoneum. Left colonic appendage Estimated Blood Loss (mL): 100 Fluids Replaced: 1000 ml Description of Procedure: Indications: 19-year-old 0 with a history of chronic pelvic pain and endometriosis. She had failed medical management including hormonal therapy and neuromodulators. She opted to proceed with laparoscopy. Procedural risks, benefits, indications and alternatives were reviewed at length. Informed consent was obtained. Procedure: The patient was taken to the operating room and stenting was performed. She is placed in the dorsal supine position and induced under general anesthesia and intubated. She is then repositioned to dorsolithotomy and her arms tucked at her sides. An examination under anesthesia was performed. The perineum and abdomen were prepped and draped in sterile fashion. Patient was placed into high lithotomy straight catheterization of the bladder was performed. A speculum was placed into the vagina cervix visualized and grasped at the anterior cervical lip using a single-tooth tenaculum. I attempted to sound the uterus however the cervix was slightly stenotic. The tenaculum was removed and sponge stick placed vaginally. The patient was placed into low lithotomy and attention turned to the abdomen. Percent Sensorcaine was injected at the inferior umbilicus. An inferior umbilical incision was made using the scalpel. The Veress needle was placed with successful hanging drop test and no aspirate however abdominal entry pressures remain high. Attempted laparoscopic entry via the port at this site was also unsuccessful. Thus an incision was made at Russell's point and laparoscopic entry via a 5mm port was performed at this site confirming entry into the abdomen. The abdomen was insufflated to 15mmHg. The inferior umbilical 5mm port was subsequently placed under laparoscopic guidance. A suprapubic and right and left lower quadrant ports were also placed following laparoscopic guided TAP block. The patient was placed into Trendelenberg and abdominal survey performed demonstrating endometriotic lesions at the anterior culdesac, bilateral uterosacral ligament, left ovarian fossa. I proceeded with wide peritoneal excision of anterior culdesac lesions using sharp and blunt dissection. In similar fashion, left uterosacral peritoneal excision and right uterosacral peritoneal excision were also performed to remove lesions with use of electrocoagulation for hemostasis. The ureters wer visualized before, during and after the peritoneal biopsies with peristalsis present. A portion of Left ovarian fossa peritoneum was also excised again using sharp and blunt dissection. Each of the excisional sites was hemostatic. Intercede was placed for adhesion prevention at the biopsy sites. The patient was flattened. A left descending colon fatty appendage with evidence of old bleed was removed with the assistance of Dr. Thomas, General Surgery, as it was concerning for endometriosis. An endoloop was cinched at the base of the lesion and the lesion excised. The lesion did not appear to be contiguous with the bowel lumen. The umbilical incision was widened to allow removal of the lesion from the abdomen. This was sent to pathology also. The fascia was reapproximated with 0 Vicryl. The abdomen was desufflated at the patient given several deep breaths. The ports were removed. The skin at all sites was closed using 4-0 Monocryl subcuticular stitch. Steristrips and Opsite were placed over the incisions. The vaginal sponge stick was removed from the vagina. The patient was placed in dorsal supine position, awakened, extubated and transferred to the recovery room without complication. Sponge counts were correct x 2. - Complications None - Admit VTE Documentation VTE Present on Admission: No VTE Mechan Device Prophylaxis: SCD's VTE Pharm Prophylaxis ordered?: No
[2019-07-01] MEDS: HYDROcodone Bitartrate/Apap 5/325 Tablet PO (16:20)
== END 2019-07-01 18:36 | disposition home or self-care (01) ==
LOC: SDC 08:28 → AC 08:29
PROVIDERS: Anesthesiology; Family Provider Pediatrics; PCP Pediatrics; Referring Provider Obstetrics & Gynecology; Visit Provider Obstetrics & Gynecology
PROC: (CPT 49320; principal; 2019-07-01 10:00)
DX: N80.3 Endometriosis of pelvic peritoneum (principal); G89.29 Other chronic pain; R10.2 Pelvic and perineal pain; J45.909 Unspecified asthma, uncomplicated; Z79.899 Other long term (current) drug therapy; Z87.891 Personal history of nicotine dependence; Z88.6 Allergy status to analgesic agent; Z88.8 Allergy status to other drugs, medicaments and biological substances
CPT/HCPCS: 58662; 36415; 80076; 81025; 85027; 85610; 85730; 86850; 86900; 86901; 88305; J7120; J2405

== ENCOUNTER 2019-10-05 12:45 | Emergency (ER) | payer SELFPAY ==
[2019-07-01 08:46] VITALS: BMI 31.8
[2019-10-05 12:46] VITALS: BP 131/77; PULSE 93; RESP 18; TEMP 36.6; O2SAT 98; BMI 30.9
[2019-10-05 13:17] VITALS: RESP 16
--- NOTE | 2019-10-05 13:42 | ED.VIS.GEN ---
History of Present Illness Chief Complaint: GI Bleed Informant: Patient Onset: Days - 4 Context: Onset with activity Current Severity: Moderate Maximum Severity: Moderate Narrative: Patient presents with bright red blood per rectum after a bowel movement this has subsided it has not reoccurred. She has no abdominal pain. She does not feel lightheaded she has no fever chills she has no recent diarrhea she may be somewhat constipated. Past Medical History - Allergies and Home Meds Allergies/Adverse Reactions: Allergies aspirin Allergy (Verified 10/05/19 12:49) Other metoclopramide [From Reglan] Allergy (Verified 10/05/19 12:49) CARLTON LIKE MY SKIN WAS CRAWLING montelukast sodium [From Singulair] Allergy (Verified 10/05/19 12:49) Other NSAIDS (Non-Steroidal Anti-Inflamma Allergy (Verified 10/05/19 12:49) Other Primary Care Physician: Colleen Bray MD [Primary Care Provider] - Past Medical History: None Smoking Status: Current some day smoker Review of Systems All systems negative except as indicated Cardiovascular: Denies: Chest pain Respiratory: Denies: Dyspnea Gastrointestinal: Reports: Constipation, Hematochezia. Denies: Abdominal pain Genitourinary: Denies: Dysuria, Hematuria Musculoskeletal: Denies: Myalgias Neurological: Denies: Weakness Hematologic: Denies: Easy bruising, Easy bleeding Physical Exam Vital Signs/Narrative: Vital Signs Temp Pulse Resp BP Pulse Ox 10/05/19 13:17 16 10/05/19 12:46 98 F 93 18 131/77 H 98 General: Well nourished, Well developed Eyes: Negative for: Pale conjunctiva Cardiovascular: Regular rate, Regular rhythm Respiratory: No distress, CTA bilaterally Abdomen: Soft, Nontender Rectal: - - Normal rectal exam. Anoscopy shows a left anterior internal hemorrhoid. There are signs of recent bleeding. Skin: Normal color Diagnostic/Tx/Re-eval - Medical Decision Making Anoscopy showed an internal hemorrhoid, this is likely the cause. She is told to take stool softeners otherwise she was reassured and I will discharge in stable condition ED Disposition - Plan for ED Patient: Disposition: Home or Assisted Living Diagnosis: Constipation, Internal hemorrhoid Instructions: Hemorrhoids Referrals: Colleen Bray MD [Primary Care Provider] - 2 Days
== END 2019-10-05 14:06 | disposition home or self-care (01) ==
PROVIDERS: Emergency Provider Emergency Medicine; PCP Pediatrics
DX: K64.8 Other hemorrhoids (principal); K59.00 Constipation, unspecified; Z88.6 Allergy status to analgesic agent
CPT/HCPCS: 99281

== ENCOUNTER 2019-10-27 13:52 | Emergency (ER) | payer SELFPAY ==
[2019-10-27 13:53] VITALS: BP 112/62; PULSE 107; RESP 16; TEMP 36.8; O2SAT 97; BMI 28.0
[2019-10-27 13:59] VITALS: PULSE 126; RESP 18
--- NOTE | 2019-10-27 13:59 | RAD_ITS ---
STUDY: X-RAY CHEST REASON FOR EXAM: Female, 19 years old. COUGH, FEVER, SOB, +FLU TECHNIQUE: PA and lateral views of the chest. COMPARISON: Comparison is made with prior examination dated January 27, 2019. FINDINGS: The lungs are clear and expanded. There is no demonstrated pleural abnormality. Normal size heart. Normal mediastinum and martha. Normal visualized pulmonary arteries. Normal visualized aortic arch and descending thoracic aorta. Normal visualized thoracic spine. Normal visualized ribs, clavicles, and shoulders. There is no demonstrated abnormality of the visualized soft tissue structures of the upper abdomen. RAD/Chest PA and Lateral IMPRESSION: Normal x-ray examination of the chest. Electronically Signed: Price Sethi, at 15:14 EST , Service support ,
--- NOTE | 2019-10-27 14:01 | ED.VIS.GEN ---
History of Present Illness Chief Complaint: Cough Informant: Patient Onset: Days Context: Gradual Onset Timing: Continuous Current Severity: Moderate Maximum Severity: Moderate Narrative: The patient is a 19-year-old female with history of asthma and endometriosis that presents to the emergency department with cough, fever, nausea, and shortness of breath. She states her symptoms began over the past 2 days. She states initially, she started with a sore throat. Since then, she is had a scant, nonproductive cough. She also admits to myalgias and arthralgias. She is had a few bouts of nonbloody, nonbilious vomiting. She has been using her inhaler with little relief. She denies any other systemic symptoms. She is otherwise been in her normal state of health. Prior similar symptoms: No Recent Illness/Hospitalization: No Past Medical History - Allergies and Home Meds Allergies/Adverse Reactions: Allergies aspirin Allergy (Verified 10/27/19 13:54) Other metoclopramide [From Reglan] Allergy (Verified 10/27/19 13:54) CARLTON LIKE MY SKIN WAS CRAWLING montelukast sodium [From Singulair] Allergy (Verified 10/27/19 13:54) Other NSAIDS (Non-Steroidal Anti-Inflamma Allergy (Verified 10/27/19 13:54) Other Primary Care Physician: Colleen Bray MD [Primary Care Provider] - Prior records reviewed: Yes Past Medical History: - - Asthma, von Willebrand's Surgical History: noncontributory Smoking Status: Current some day smoker Review of Systems General: Reports: Fever. Denies: Chills, Sweats Eyes: Denies: Visual changes - bilaterally, Diplopia ENT: Reports: Rhinorrhea, Sore throat Cardiovascular: Denies: Chest pain, Palpitations Respiratory: Reports: Dyspnea, Cough. Denies: Dyspnea on exertion Gastrointestinal: Denies: Abdominal pain, Nausea, Vomiting, Diarrhea, Melena, Hematochezia Genitourinary: Denies: Dysuria, Hematuria, Frequency Musculoskeletal: Denies: Back pain, Extremity Pain Skin: Denies: Rash, Wounds Neurological: Denies: Headache, Weakness, Numbness Physical Exam Vital Signs/Narrative: Vital Signs Temp Pulse Resp BP Pulse Ox 10/27/19 13:53 98.3 F 107 H 16 112/62 97 Inital Vital Signs reviewed: Yes General: Well nourished, Well developed, No Acute Distress Head: Normocephalic, Atraumatic Eyes: Perrl, EOMI ENT: Moist mucous membranes, No rhinorrhea Neck: Supple, Nontender Cardiovascular: Regular rate, Regular rhythm, No murmurs Respiratory: No distress, Chest nontender, Wheezing Abdomen: Soft, Nontender, Nondistended, Normal bowel sounds Back: Nontender, Normal Inspection Extremities: Nontender, No edema Skin: Normal color, No rash Neurological: Alert, Oriented x3, Cranial nerves II-XII grossly intact, Normal Strength, Normal Sensation Psychological: Normal affect, Normal Mood Diagnostic/Tx/Re-eval - Medical Decision Making The patient presents with cough, wheezing, fever, myalgias. Her symptoms do seem consistent with influenza. She said the symptoms were greater than 48 hours. Influenza was obtained and was positive for influenza A. The patient was given a nebulized breathing treatment with improvement of aeration. She was also given Zofran and prednisone. Chest x-ray was obtained. There is no evidence of focal infiltrative process. I do not feel that Tamiflu would be of benefit for the patient and she is agreeable with this plan of care. She was counseled supportive care. She will be continued on a burst of steroids and antiemetics. She will be discharged home. Impression 1. Influenza ED Disposition - Plan for ED Patient: Instructions: INFLUENZA (Adult) Prescriptions: Prednisone [Deltasone] 40 mg PO DAILY #10 tab Prescription Printed Ondansetron [Zofran Odt] 4 mg PO Q8H PRN PRN #10 tab PRN Reason: Nausea Prescription Printed Referrals: Colleen Bray MD [Primary Care Provider] -
[2019-10-27] MEDS: Ondansetron ODT 4 MG Tablet PO (14:06)
[2019-10-27] MEDS: Ipratropium/Albuterol Sulfate 3 ML AMPUL.NEB INHALATION (14:06)
[2019-10-27 14:16] VITALS: O2SAT 97
== END 2019-10-27 15:16 | disposition home or self-care (01) ==
LOC: ED 14:08
PROVIDERS: Emergency Provider Emergency Medicine; PCP Pediatrics
DX: J11.1 Influenza due to unidentified influenza virus with other respiratory manifestations (principal); N80.9 Endometriosis, unspecified; D68.0 Von Willebrand disease; J45.909 Unspecified asthma, uncomplicated
CPT/HCPCS: 71046; 87804; 94640; 99283

== ENCOUNTER 2019-11-17 13:18 | Emergency (ER) | payer MEDICAID, SELFPAY ==
[2019-11-17 13:19] VITALS: BP 143/87; PULSE 88; RESP 20; TEMP 37.1; O2SAT 96; BMI 32.5
[2019-11-17 13:36] VITALS: PULSE 81; RESP 16; O2SAT 99
--- NOTE | 2019-11-17 13:51 | ED.VISSUMM ---
- ER Visit Summary Date of Service: 11/17/19 Chief Complaint: Dental pain History of Present Illness: The patient is a 19 F with right maxillary molar pain for days. No other symptoms. Physical Examination: Gums overlying right maxillary third molar tender to palpation otherwise unremarkable. No abscess. No trismus. No tongue elevation. Skin normal. Cranial nerves normal. Neck normal. No adenopathy. Test Results: None indicated Emergency Department Course and Treatment: Checked her prescription report. We will treat with a short course of pain medicine and Macie Hensley Follow-up with dental. Treatment Plan: As above Disposition: Discharge Impression: Dental pain This note was generated with [employer] dictation software. It may contain incorrect words, spelling, and punctuation that were not noted in review of the chart prior to signing ED Disposition - Plan for ED Patient: Referrals: Colleen Bray MD [Primary Care Provider] -
--- NOTE | 2019-11-17 13:53 | ED.DEP ---
ED Disposition - Plan for ED Patient: Instructions: Dental Pain Prescriptions: Penicillin V Potassium 500 mg PO 4X/DAY #40 tab Prescription Printed Oxycodone HCl/Acetaminophen [Percocet 5/325] 1 tab PO Q6H PRN PRN 2 Days #8 tab PRN Reason: Pain Prescription Printed Referrals: Colleen Bray MD [Primary Care Provider] -
[2019-11-17 14:11] VITALS: PULSE 83; RESP 14; O2SAT 99
== END 2019-11-17 14:11 | disposition home or self-care (01) ==
LOC: ED 13:58
PROVIDERS: Emergency Provider Emergency Medicine; PCP Pediatrics
DX: K08.89 Other specified disorders of teeth and supporting structures (principal); H92.01 Otalgia, right ear
CPT/HCPCS: 99282

== ENCOUNTER → 2020-02-01 17:05 | Outpatient (CLI) | payer MEDICAID, SELFPAY ==
[2020-02-01 15:13] VITALS: BMI 33.0
[2020-02-01 18:30] LABS: ALB/GLOB Ratio 1.1 RATIO (0.9-2.4); AST(SGOT) 15 U/L (15-37); Alanine Aminotransfer ALT/SGPT 21 U/L (13-56); Albumin, Serum 4.1 g/dL (3.2-5.0); Alkaline Phosphatase 102 U/L (45-117); Anion Gap 7 (5-15); BUN 8 mg/dL (7-18); BUN/Creat Ratio 11.9 RATIO (10-20); CRP < 2.90 mg/L (0.0-3.0); Calcium,Total 9.4 mg/dL (8.5-10.1); Chloride 102 mmol/L (98-107); Creatinine, Serum 0.67 mg/dL (0.55-1.02); EST Glomerular Filtration Rate 118 mL/min (>60); Est Glom Filt Rate - Afr Amer 143 mL/min (>60); Globulin 3.6 g/dL (2.2-4.2); Glucose 99 mg/dL (74-106); Protein, Total 7.7 g/dL (6.4-8.2); Rheumatoid Factor < 10.0 IU/mL (<15); Sodium Level 138 mmol/L (136-145); T4 Free Direct 0.96 ng/dL (0.76-1.46); Thyroid Stim Hormone (TSH) 0.41 uIU/mL (0.358-3.74)
[2020-02-03 13:45] LABS: ANTINUCLEAR ANTIBODIES DIRECT Negative (Negative)
--- OUTSIDE RECORDS SUMMARY | 2020-06-20 17:26 | XMS RPT_ITS | CCD ---
:2000 External Reference #:[id number] Author Organization [facility] Care Team Providers Name Role Phone Rosemarie Zamora Unavailable Unavailable Pillo Loredo MD Unavailable Sofia Zamora Unavailable Unavailable Nitza HUMPHREYS Unavailable Unavailable WISAM Unavailable Unavailable Marcin KEATING Unavailable Unavailable WISAM Unavailable Unavailable Rolanda GOODWIN-C, A Unavailable Unavailable Allergies Reported Allergen Reaction(s) Severity Date of Onset Location aspirin Hemotoligist [facility] ([id number]) montelukast numbness in legs Critical, 04-02-2017 - [facility] ([id number]) nystatin Hemotologist advises Critical, [facility]-02-2017 [facility]. Critical Internal Me dicine (11277) Medications Medication Name Sig Date Prescriber Location desmopressin STIMATE SOLN prn 04-02-2017 [facility] DESMOPRESSIN Medi cine ([id number]) ACETATE SOLN [id number] Veronika Loredo MD STIMATE SOLN prn 04-02-2017 [facility] DESMOPRESSIN ACETATE SOLN [id number] ([id number]) Veronika Loredo MD STIMATE SOLN prn 04-02-2017 [facility] DESMOPRESSIN ACETATE SOLN [id number] ([id number]) Veronika Loredo MD STIMATE SOLN prn 04-02-2017 [facility] DESMOPRESSIN ACETATE SOLN [id number] ([id number]) Veronika Loredo MD STIMATE SOLN prn 04-02-2017 [facility] DESMOPRESSIN ACETATE SOLN [id number] ([id number]) Veronika Loredo MD STIMATE SOLN prn 04-02-2017 [facility] DESMOPRESSIN ACETATE SOLN [id number] ([id number]) Veronika Loredo MD lysine L-LYSINE TABS prn 04-02-2017 [facility] LYSINE TABS [id number] Veronika ([id number]) Pillo Loredo MD L-LYSINE TABS prn LYSINE 04-02-2017 [facility] TABS [id number] Veronika Loredo ([id number]) L-LYSINE TABS prn LYSINE 04-02-2017 [facility] TABS [id number] Veronika Loredo ([id number]) L-LYSINE TABS prn LYSINE 04-02-2017 [facility] TABS [id number] Veronika Loredo ([id number]) L-LYSINE TABS prn LYSINE 04-02-2017 [facility] TABS [id number] Veronika Loredo ([id number]) medroxyPROGESTERone PROVERA 2.5 MG TABS prn 04-02-2017 [facility] MEDROXYPROGESTERONE Medicine ([id number]) ACETATE [id number] Veronika Loredo MD Problems Active Problems Category Problem Name Status Date Location Cardiac dysrhythmias Irregular heart beat Active 04-02-2017 - [facility] ([id number] ) Past or Other Problems Category Problem Name Status Date Location Malaise and fatigue Malaise and fatigue Completed 06-17-2017 - [facility] ([id number] ) Other nutritional; Weight loss Completed 06-17-2017 - [facility] on Internal endocrine; and Medicine (548 76) metabolic disorders Residual codes; Family history of Completed [facility] Internal unclassified alcoholism Medicine (25710 ) Unclassified Insomnia Completed 04-02-2017 - [facility] Int ernal Medicine (23851 ) Results Result Name Value Range Unit Interpretation Flag Date Location progress note on 24-01-23 [employer] Patient ID: Re Garcia i s a 19 y.o. female. Her chief complaint(s) Normal 01-28-2019 [facility] Authentication include: ED Follow Up ([facility] yesterday, breathing issue) [facility] ([id number]) Interface Message Text Assessment 1. Exacerbation of asthma, unspecified asthma severity, un specified whether persistent 2. Bronchitis 3. Disorder of respiratory system Plan Re was seen today for ed follow up. Diagnoses and all orders for this visit: Exacerbation of asthma, unspecified asthma severity, unspeci fied whether persistent - DME - Nebulizer/Ped Mask Kit - albuterol (VENTOLIN) (2.5 MG/3ML) 0.083% nebulizer s olution; Use 3 mL (2.5 mg) by nebulization every 4 hours as needed for Wheezing or Shortness of Breath (Cough) - ipratropium (ATROVENT) 0.02 % nebulizer solution; Use 2. 5 mL (500 mcg) by nebulization every 6 hours Bronchitis - azithromycin (ZITHROMAX) 250 MG tablet; Take 2 tabs (500 mg) by mouth day 1, then 1 tab (250 mg) days 2-5 Disorder of respiratory system - Pulse Ox, Single Having lots of chest pain an d tightness, altho pulse ox was 98% here and also at the ER yesterday, and exam normal. SHe denies th at this feels like anxiety or panic attacks. Will step up treatment with a nebulizer, using alb nebs q4r, and also Atrovent TID. Will do abx also, and complete the oral s teroid out to tomorrow. Go to ER if severe sx's. Spent 25 min with her. Greater than 50% of the time was spen t on case management. Return for Well Visit and as needed. Subjective HPI Comments: Has been jennifer gorman trouble with asthma this week. Seen here 3 d ago, and started on prednisone and alb MDI's. Seen again ye sterday and got Duoneb and Decadron shot. Then seen in the ER last evening also for SOB and chest pain. Today - mid chest pain for 3 days, even at rest; burning margot n; feels constricting - in feeling from the sides; tight feeling; wor se with deeper breathing. Feeling very SOB with this, and sometimes tachy pnea. The alb MDI does not help these sx's. No fever. Wheezing - none Cough - brief spells, but fa irly often; cough for about a week, worse for last 3 days. Meds - has been on a lot of oral steroids, for 4 days, and albuterol, and not getting better. CXR - done yesterday at ER, and was normal She is unaccompanied. ED Follow Up The patient was discharged 1 day ago. The patient was treate d at [facility]. Her diagnosis was asthma exacerbation. H er treatment included: albuterol (Duoneb once, and also one more alb Neb; no other changes). The discharge summary was not available at the time of visit . Asthma Primary Care Review of Systems Objective Vital Signs 01/28/19 1051 Pulse: 92 Resp: 20 Temp: 37.1 C (98.8 F) TempSrc: Temporal SpO2: 98% Weight: 90.6 kg There is no height or weight on file to calculate BMI. Physical Exam Constitutional: She appears well. She is active. No distress . HENT: Head: Atraumatic. Right Ear: Tympanic membrane normal. Left Ear: Tympanic membrane normal. Mouth/Throat: Mucous membranes are moist. No pharynx erythem a. Eyes: Conjunctivae are normal. Cardiovascular: Normal rate and regular rhythm. Heart murmur not heard. Pulmonary/Chest: Breath soun ds normal. There is normal air entry. No respiratory distress. She has no wheezes. She has no rales. Exhibits no retraction. occ hard cough in brief spells Neurological: She is alert. progress note on 24-01-22 [employer] Patient ID: Re Garcia i s a 19 y.o. female. Her chief complaint(s) Normal 01-27-2019 [place] Authentication include: Breathing Problem ( tight feeling in chest, asthma flare up on friday) Children's Interface Message Assessment H ospital Text 1. Mild asthma with exacerbation, unspecified whether persis tent ([id number]) Plan Re was seen today for breathing problem. Diagnoses and all orders for this visit: Mild asthma with exacerbation, unspecified whether persisten t - Pulse Ox, Single - Aerosol Treatment/Nebulization - dexamethasone (DECADRON) injection 10 mg - albuterol-ipratropium (DUONEB) nebulizer solution 3 mL Improvement after NMT, pt feels less tig ht, minimal coughing in the office. Do Albuterol 2 puffs every 4 hours for the next 2-3 days, then decrease and use prn. If worsening symptoms return instructed pt to go to the ED. No follow-ups on file. Subjective HPI Comments: Hx of intermit tent asthma, no preventative meds, typically rarely needs Albuterol Started Friday with chest tightness and cough, seen here at [facility] Started on Prednisone and fe lt a little better initially but today has worsening symptoms again No fever, chest feels heavy, coughing Breathing Problem This problem is new. The duration has been 2 days. The onset has been acute. The course is worsening. The patient's symptoms have included cough and shortness of breath. The patient's symptoms have included no fever. (Prednisone and A lbuterol). She is unaccompanied. Primary Care Review of Systems Objective Vital Signs 01/27/19 1032 BP: 133/77 Pulse: (!) 116 Resp: 20 Temp: 36.3 C (97.3 F) TempSrc: Temporal SpO2: 98% Weight: 89.7 kg There is no height or weight on file to calculate BMI. Physical Exam Constitutional: She appears well. She is active. No distress . HENT: Head: Atraumatic. Right Ear: Tympanic membrane normal. Left Ear: Tympanic membrane normal. Mouth/Throat: Mucous membranes are moist. Eyes: Conjunctivae are normal. Cardiovascular: Normal rate and regular rhythm. Heart murmur not heard. Pulmonary/Chest: Effort normal and breath sounds normal. No respiratory distress. Decreased air movement is present. Exhibits no ret raction. Neurological: She is alert. Vitals reviewed: Blood press ure 133/77, pulse (!) 116, temperature 36.3 C (97.3 F), temperature source Temporal, resp. r ate 20, weight 89.7 kg, last menstrual period 01/03/2019, SpO2 98 %. progress note on 25-01-20 [employer] Patient ID: Re Garcia i s a 19 y.o. female. Her chief complaint(s) Normal 01-25-2019 [facility] Authentication include: [facility] ([id number]) Interface Message Text Assessment 1. Exacerbation of asthma, unspecified asthma severity, un specified whether persistent 2. Seasonal allergic rhinitis due to pollen Plan Re was seen today for asthma exacerbation. Diagnoses and all orders for this visit: Exacerbation of asthma, unspecified asthma severity, unspeci fied whether persistent - predniSONE (DELTASONE) 20 MG tablet; Take 3 per day for 2 days, then 2 per day for 3 days. Seasonal allergic rhinitis due to pollen - loratadine (CLARITIN) 10 MG tablet; Take 1 Tab (10 mg) by mouth daily Will use the alb MDI QID for a few days until feeling better , then PRN. No follow-ups on file. Subjective HPI Comments: Asthma - started up suddenly after camping for the weekend. Was coughing and tight. Used the alb MDI, and it gradually hel ped. The short ob breath feeling got better. Today, still cough, and mild tightness. Has not had asthma attacks f or a long time, exept mild. Was much worse when she was 12 or so. She is unaccompanied. Asthma Exacerbation Current symptoms include cough, chest ti ghtness, wheezing (mild) and shortness of breath. Primary Care Review of Systems Objective Vital Signs 01/25/19 0923 Temp: 37 C (98.6 F) TempSrc: Temporal Weight: 90.7 kg There is no height or weight on file to calculate BMI. Physical Exam Constitutional: She appears well. She is active. No distress . HENT: Head: Atraumatic. Right Ear: Tympanic membrane normal. Left Ear: Tympanic membrane normal. Nose: Nasal discharge (sniffly) present. Mouth/Throat: Mucous membranes are moist. Oropharynx is dylan r. Eyes: Conjunctivae are normal. Cardiovascular: Normal rate and regular rhythm. Heart murmur not heard. Pulmonary/Chest: There is normal air entry. No respira tory distress. She has wheezes (very slight, bilat). She has no rales. Exhibits no retraction. Neurological: She is alert. progress on 2019-01 Protein mass HNO ID: [id number] Normal 01-14-20 [facility] conc Author: Gregorio Wren ([id number]) Service: ? Author Type: Physician Type: Progress Notes Filed: 01/13/2019 3:11 PM Note Text: Patient presents with: Nausea AND Vomiting: x 3 days Diarrhea: x 3 days Headache: x 3 days HPI: Feeling sick for 3 days. Her niece had a gastrointestinal il lness 1-2 weeks ago. Positive symptoms: Fever (improved), Headache, Diarrhea, fine craft artist mping, fever, dizziness Negative symptoms: blood in stool or emesis, OTC: Tylenol, zofran, fluids PAST MEDICAL HISTORY Diagnosis Date - Asthma - Endometriosis - Ovarian cyst - Pneumococcal pneumonia (streptococcus pneumoniae pneumonia ) hospitalized at 1 years - Von Willebrand disease, type I (HCC) PAST SURGICAL HISTORY Procedure Laterality Date - LAPAROSCOPY-PRAVIN endometriosis MEDICATIONS: Current Outpatient Medications: AMINOCAPROIC ACID (AMICAR ORAL) Take by mouth. albuterol HFA (VENTOLIN HFA) 90 mcg/actuation inhaler Inhale 2 Puffs as instructed every 4 hours as needed for Wheezing/Shortness of Breath. hydrOXYzine pamoate (VISTARIL) 25 mg capsule Take 25 mg by m outh three times daily as needed. Desmopressin Acetate (STIMATE) 150 mcg/spray spry Use in the nose. TRANEXAMIC ACID (LYSTEDA ORAL) Take by mouth. No current facility-administered medications for this visit. ALLERGIES: ALLERGIES Allergen Reactions - Asa [Aspirin] Unknown - Nsaids (Non-Steroid* Unknown - Singulair [Monteluk* Other: See Comments leg cramps and unable to feel legs VITALS: BP 118/62 Pulse 100 Temp 37.2 ?C (99 ?F) (Tympanic) Re sp 17 Wt 88.8 kg (195 lb 12.8 oz) SpO2 98% PHYSICAL EXAM: GEN: mildly ill appearing HEENT: PERRL, EOMI, conjunctiva clear Throat: moist mucous membranes, no erythema, no exudate Neck: supple, no thyromegaly, no lymphadenopathy HEART: regular rate and rhythm, no murmurs LUNGS: clear to auscultation, no wheezes or crackles, no inc reased WOB ABD: Soft, non-distended, non-tender, no masses ASSESSMENT/PLAN: 1. Vomiting and diarrhea - ICD9: 787.03, 787.91, ICD10: R11. 10, R19.7 Hydration with electrolyte containing fluids encouraged. Follow up in the ER with signs of dehydration, increasing ab dominal pain, high fever, or blood in vomit or stool. Gregorio Mendoza MD cnov on 2019-01-13 CNOV Office Visit (UCWSTR) Normal 01-14-[address] [facility] RE GARCIA I ([id number]) 2000 [facility] Date Time Provider Department ([id number]) 01/13/19 2:30 PM GREGORIO MENDOZA [facility] During your visit today, we recorded the following informati on about you: Temperature Pulse Respiration Blood pressure 99 degrees 100/minute 17/minute 118/62 Weight 88.8 kg Gregorio Mendoza MD 01/13/2019 3:11 PM Signed Patient presents with: Nausea AND Vomiting: x 3 days Diarrhea: x 3 days Headache: x 3 days HPI: Feeling sick for 3 days. Her niece had a gastrointestinal illness 1-2 weeks ago. Positive symptoms: Fever (improved), Headache, Diarrhea, fine craft artist mping, fever, dizziness Negative symptoms: blood in stool or emesis, OTC: Tylenol, zofran, fluids PAST MEDICAL HISTORY Diagnosis Date - Asthma - Endometriosis - Ovarian cyst - Pneumococcal pneumonia (streptococcus pneumoniae pneumonia ) hospitalized at 1 years - Von Willebrand disease, type I (HCC) PAST SURGICAL HISTORY Procedure Laterality Date - LAPAROSCOPY-PRAVIN endometriosis MEDICATIONS: Current Outpatient Medications: AMINOCAPROIC ACID (AMICAR ORAL) Take by mouth. albuterol HFA (VENTOLIN HFA) 90 mcg/actuation inhaler Inhale 2 Puffs as instructed every 4 hours as needed for Wheezing/Shortness of Breath. hydrOXYzine pamoate (VISTARIL) 25 mg capsule Take 25 m g by mouth three times daily as needed. Desmopressin Acetate (STIMATE) 150 mcg/spray spry Use in the nose. TRANEXAMIC ACID (LYSTEDA ORAL) Take by mouth. No current facility-administered medications for this visit. ALLERGIES: ALLERGIES Allergen Reactions - Asa [Aspirin] Unknown - Nsaids (Non-Steroid* Unknown - Singulair [Monteluk* Other: See Comments leg cramps and unable to feel legs VITALS: BP 118/62 Pulse 100 Temp 37.2 ?C (99 ?F) (Tympanic) Resp 17 Wt 88.8 kg (195 lb 12.8 oz) SpO2 98% PHYSICAL EXAM: GEN: mildly ill appearing HEENT: PERRL, EOMI, conjunctiva clear Throat: moist mucous membranes, no erythema, no exudate Neck: supple, no thyromegaly, no lymphadenopathy HEART: regular rate and rhythm, no murmurs LUNGS: clear to auscultation, no wheezes or crackles, no inc reased WOB ABD: Soft, non-distended, non-tender, no masses ASSESSMENT/PLAN: 1. Vomiting and diarrhea - ICD9: 787.03, 787.91, ICD10: R11. 10, R19.7 Hydration with electrolyte containing fluids encouraged. Follow up in the ER with signs of dehydr ation, increasing abdominal pain, high fever, or blood in vomit or stool. Gregorio Mendoza MD Referring Provider: SELF [200] Allergies As of Date: 01/13/2019 Noted Allergy Reaction ASA (ASPIRIN) 07/22/2016 16 - Unknown NSAIDS (NON-STEROIDAL ANTI-INFLAM*06/05/2016 16 - Unknown SINGULAIR (MONTELUKAST) 06/21/2014 14 - Other: See Comments Comments: leg cramps and unable to feel legs Date Reviewed: 01/13/2019 Reviewed by: Mariella Swift Social Media Marketing Manager - Fully Assessed Reason for Visit: Nausea AND Vomiting [237] Cmt: x 3 days Diarrhea [35] Cmt: x 3 days Headache [52] Cmt: x 3 days Primary Visit Diagnosis:Vomiting and diarrhea [R11.10, R19.7 ] Prescriptions as of 01/13/2019 Sig: AMICAR ORAL Take by mouth. ALBUTEROL SULFATE HFA 90 MCG/* Inhale 2 Puffs as instructed * HYDROXYZINE PAMOATE 25 MG CAP* Take 25 mg by mouth three yana * DESMOPRESSIN 150 MCG/SPRAY (0* Use in the nose. LYSTEDA ORAL Take by mouth. Problem List As Of Date 01/13/2019 Noted Resolved Von Willebrand disease, type I (HCC) [D68.0] INVALID FOR* Letter Text Encounter Status:Closed by GREGORIO MENDOZA MD on 01/13/19 progress note on 25-12-18 [employer] Patient ID: Re tomas a 18 y.o. female. Her chief complaint(s) Normal 12-25-2018 [facility] Authentication include: Weight Related Concerns [facility] ([id number]) Interface Message Text Assessment 1. Polyuria 2. Obesity (BMI 30.0-34.9) 3. Overweight Plan Re was seen today for weight related concerns. Diagnoses and all orders for this visit: Polyuria - Complete Blood Count with Diff (Lab Collect); Future - Hemoglobin A1c (Lab Collect); Future - T4, free (Lab Collect); Future - TSH (Lab Collect); Future - ESR (Lab Collect); Future - Basic Metabolic Panel (Lab Collect); Future Obesity (BMI 30.0-34.9) Overweight - Lipid Panel (Lab Collect); Future Checking labs. She would like a referral to smokehouse operator. This was done. No follow-ups on file. Subjective HPI Comments: Concerned with being overweight. Diet - eats REALLY healthy food. Takes a lot of F&V and sa lad. Not drinking pop. Has tried many diet approaches. Also exercises. Health - some HAs and hot flashes; more thirsty. Also voiding more in recent weeks.. Some nausea, but no vomiting. Has endometriosis. She is not on any meds that promote obesity. She is unaccompanied. Primary Care Review of Systems Objective Vital Signs 12/25/18 1107 Temp: 38.2 C (100.8 F) TempSrc: Temporal Weight: 90.8 kg Height: 167.6 cm Body mass index is 32.31 kg/m . Physical Exam Constitutional: She appears well. She is active. No distress . HENT: Head: Atraumatic. Mouth/Throat: Mucous membranes are moist. Eyes: Conjunctivae are normal. Pupils ar e equal, round, and reactive to light. Pulmonary/Chest: Breath sounds normal. There is normal air e ntry. Neurological: She is alert. progress note on 26-07-26 [employer]er Patient ID: Re tomas a 18 y.o. female. Her chief complaint(s) Normal 08-03-2018 [facility] Authentication include: Right Knee Pain [facility] ([id number]) Interface Message Text Assessment 1. Right knee injury, initial encounter Plan Re was seen today for right knee pain. Diagnoses and all orders for this visit: Right knee injury, initial encounter - AMB Referral To Orthopedic Surgery; Future Injury about 4 weeks ago to the knee. Not getting better,and having mild effusion and other concerns. Referred to ortho. Will a lso elevate, use wrap, and ice. No follow-ups on file. Subjective HPI Comments: Right knee pain - started about 4 weeks ago when she got tangled up with a baby gate, and had some contusion and twisting. There was a large bruise on the back of the knee. Now, having pain all the yana e, achy. Pain is mainly anterior, with radiation up and down. Also some locking and popping in the knee. P ain on stairs. Walking is fairly good. Swelling [...] Musculoskeletal: Right knee - normal stability, no tender ness of the patella; neg Deonte; mild swelling with small effusion ; partially reduced ROM due to some pain; mild pain at the joint lines bilat. Gait - mild limp Neurological: She is alert. [place] [facility] note on 2017-06-21 [facility] Note Normal 1 [facility] [place] ([id number]) xr chest 2 views on 2017-06-19 XR CHEST 2 VIEWS ORIGINALXR CHEST 2 VIEWS Normal 06-19-2017 [facility] CLINICAL STATEMENT: [facility] [place] SOB/Cough/Fever, patient ([id number]) reports cough and sore throat for 2 weeks Comparison: CT abdomen/pelvis May 23, 2017 FINDINGS: The cardiomediastinal silhouette is within normal limits. The right lower ribs laterally are incompletely visualized on this exam. There is no focal consolidation, vascular congestion, pleural effusion, or pneumothorax. No acute osseous abnormality. IMPRESSION: No acute radiographic finding. I have personally reviewed the images of this examination and agree with the resident's findings and interpretation. Interpreted By: Luther ,Pollo MDPreliminary Report By: Melissa Ennis DOElectronically Signed By: Pollo Sloan MD Dictated Date: 06/19/2017 4:37:05 PM Prelim Date: 06/19/2017 4:38:52 PM Sign Date: 06/19/2017 5:36:43 PM patient summary documents on 2017-06-19 Patient Summary Documents Normal 06-08 [facility] [place] ([id number]) office visit: acute visit insomnia on 2017-06-17 Documentation of Done Invalid 06-17-2017 - [facility] current medications Interpretation Code 06-17-2017 Group ([id number]) (procedure) Fall risk No Invalid 06-17-2017 - [place] assessment Interpretation Code 7 [facility] ( 24964) Protein mass conc Done Invalid 06-17-2017 - [place] Interpretation Code 06-17-2017 [facility] ( 59246) Protein mass conc yes Invalid 06-17-2017 - [place] Interpretation Code 06-17-2017 Internal Medicine ( 01227) Smoking cessation yes Invalid 06-17-2017 - [facility] education Interpretation Code 06-17-2017 Group ([id number]) (procedure) Tobacco smoking Light Invalid 06-17-2017 - [place] status NHIS tobacco Interpretation Code 06-17-20 17 Internal smoker Medicine ( 82199) Tobacco use CPHS Light Invalid 06-17-2017 - [facility] tobacco Interpretation Code 06-17-2017 Group ([id number]) smoker lab report: thyroid stim hormone (tsh) on 2017-06-17 Thyrotropin Qn 0.37 0.358-3.74 u[iU]/mL Invalid 06-17-2017 - [place] Interpretation 06-17-2017 Inte rnal Code Medicine ([id number]) lab report: t4 free direct on 2017-06-17 T4 free 1.10 0.76-1.46 ng/dL Invalid 06-17-2017 - [place] mass conc Interpretation Code 06-17-2017 [facility] ([id number]) lab report: iron+iron binding capacity on 2017-06-17 Iron binding 312 250-450 ug/dL Invalid 06-17-2017 - [place] capacity mass Interpretation Code 2016 Internal conc Medicine (85925) iron binding 312 250-450 ug/dL Invalid 06-17-[address] [facility] capacity, total Interpretation Code 06-08 Group ([id number]) Iron mass conc 86 50-170 ug/dL Invalid 06-17-2017 - [place] Interpretation Code 06-17-2017 [facility] (14137) Iron saturation 27.6 15.0-55.0 % Invalid 06-17-2017 - [place] mass fraction Interpretation Code 2016 [facility] ([id number]) iron saturation 27.6 15.0-55.0 % Invalid 06-17-2017 - [place] [facility] percent, serum Interpretation Code 06-17 Group ([id number]) lab report: ferritin on 2017-06-17 Ferritin mass 80 8-252 ng/mL Invalid 06-17-2017 - [place] conc Interpretation Code 06-17-2017 [facility] ([id number]) [place] [facility] admit note on 2017-05-30 [facility] Admit Normal 05-30-2017 [facility] [place] Note ([id number]) ua on 2017-05-23 UA Appear CLEAR Normal 05-23-2017 [facility] [place] ([id number]) Comment: Performed By: #### UA, UAMIC AO, PREGU ####[address], [place] [address] UA Blood LARGE Normal 05-23-2017 [facility] [place] ([id number]) Comment: Performed By: #### UA, UAMIC AO, PREGU ####[address] [place], [place] [address] UA Leuk Est TRACE Normal 05-23-2017 [facility] ([place] ([id number]) Comment: Performed By: #### UA, UAMIC AO, PREGU ####[address] [place], [place] [address] UA Nitrite NEGATIVE Normal 05-23-2017 [facility] ([place] ([id number]) Comment: Performed By: #### UA, UAMIC AO, PREGU ####[address] [place], [place] [address] UA pH 7.0 Normal 05-23-2017 [facility] ([place]) ([id number]) Comment: Performed By: #### UA, UAMIC AO, PREGU ####[address] [place], [place] [address] UA Protein NEGATIVE Normal 05-23-2017 [facility] ([place]) ([id number]) Comment: Performed By: #### UA, UAMIC AO, PREGU ####[address] [place], [place] [address] UA Spec Grav 1.015 Normal 05-23-2017 On license of [facility] ([place]) ([id number]) Comment: Performed By: #### UA, UAMIC AO, PREGU ####[address] [place], [place] [address] UA Specimen Type Clean Catch Normal 05-23-2017 [facility] ([place]) ([id number]) Comment: Performed By: #### UA, UAMIC AO, PREGU ####[address] [place], [place] [address] UA Urobilinogen 0.2 E.U./dL Normal 05-23-2017 [facility] ([place]) ([id number]) Comment: Performed By: #### UA, UAMIC AO, PREGU ####[address] [place], [place] [address] Urine, color YELLOW Normal 05-23-2017 On license of [facility] ([place]) ([id number]) Comment: Performed By: #### UA, UAMIC AO, PREGU ####[address] [place], [place] [address] Urine, glucose NEGATIVE mg/dL Normal 05-23-2017 [facility] ([place]) ([id number]) Comment: Performed By: #### UA, UAMIC AO, PREGU ####[address] [place], [place] [address] Urine, ketones presence NEGATIVE Normal 2016 [facility] ([place]) ([id number]) Comment: Performed By: #### UA, UAMIC AO, PREGU ####[address] [place], [place] [address] Urine, urobilinogen NEGATIVE {Maranda'U}/dL Normal 05-23 [facility] ([place]) ([id number]) Comment: Performed By: #### UA, UAMIC AO, PREGU ####[address] [place], [place] [address] pregu on 2017-05-23 HCG ( test) Ql (U) Negative Normal [facility] ([place]) (0000 0) Comment: Performed By: #### UA, UAMIC AO, PREGU ####[address] [place], [place] [address] test HCG not Invalid 05-23-2017 [facility] (u) int detected. Interpretation [facility] ([place]) ([id number]) Comment: Performed By: #### UA, UAMIC AO, PREGU ####[address] [place], [place] [address] patient summary documents on 2017-05-23 Patient Summary Documents Normal 05-09 [facility] ([place]) ([id number]) lip on 2017-05-23 Lipase Level 34 8-78 IU/L Normal 05-23-2017 [facility]) ([id number]) Comment: Performed By: #### CBC, ADIF F, ANEU, LIP, CMP, GFR ####[place] [address] [place], [place] [address] ed note-provider on 2017-05-23 ED Note-Provider Normal 05-23-2017 [facility] ([place]) ([id number]) ct abdomen/pelvis w/contrast on 2017-05-23 CT ABDOMEN/PELVIS ORIGINALCT ABDOMEN/PELVIS Normal 05-23-2017 [facility] W/CONTRAST W/ IV AND ORAL Foun dation ([place]) CONTRAST:[facility] ([id number]) coronal, sagittal, and axial reconstructions were reviewed on a separate workstation CLINICAL STATEMENT: abdominal pain, CT at outside hospital yesterday, increasing right lower quadrant pain COMPARISON: None available at time of dictation TECHNIQUE: This exam was performed according to our departmental dose optimization program, including but not limited to: automated exposure control, adjustment of the mAs and/or kVp according to patient size and/or exam, and use of an iterative reconstruction algorithm where applicable. FINDINGS: The liver, gallbladder, common bile duct, pancreas, spleen, and adrenal glands are unremarkable. The kidneys enhance symmetrically without hydronephrosis or focal mass. Small bilateral extrarenal pelves noted. The ureters are normal in course and caliber. The small bowel exhibits no disproportionate luminal dilatation or wall thickening. The colon is unremarkable in course and caliber. The subcecal appendix is within normal limits. No pericecal or periappendiceal fat stranding. Small umbilical fat-containing hernia. There is no abdominal ascites or free intraperitoneal air. The abdominal aorta and IVC are of normal course and caliber. No abdominal or pelvic lymphadenopathy. The bladder is well distended without focal mass or wall thickening. The uterus and adnexa are unremarkable. There is trace free pelvic fluid, which is considered physiologic. There are no suspicious osseous lesions. Included images of the lower thorax are unremarkable. IMPRESSION: No acute process. Specifically, normal appendix. I have personally reviewed the images of this examination and agree with the resident's findings and interpretation. Interpreted By: Abebe Azulreliminary Report By: Alden Gaviria DOElectronically Signed By: Abebe Azul MD Dictated Date: 05/23/2017 7:17:09 PM Prelim Date: 05/23/2017 7:22:21 PM Sign Date: 05/23/2017 7:25:49 PM cmp on 2017-05-23 Alanine aminotransferase (ALT) 11 10-35 IU/L Normal 05-23-2017 [facility]) ([id number]) Comment: Performed By: #### CBC, ADIF F, ANEU, LIP, CMP, GFR ####[address] [place], [place] [address] Albumin 4.4 3.5-5.0 G/dL Normal 05-23-2017 [facility]) ([id number]) Comment: Performed By: #### CBC, ADIF F, ANEU, LIP, CMP, GFR ####[address] [place], [place] [address] Albumin/Globulin Ratio 1.6 1.1-2.5 ratio Normal 017 [facility]) (0000 0) Comment: Performed By: #### CBC, ADIF F, ANEU, LIP, CMP, GFR ####[address] [place], [place] [address] Alk Phos 78 40-135 IU/L Normal 05-23-2017 [facility]) ([id number]) Comment: Performed By: #### CBC, ADIF F, ANEU, LIP, CMP, GFR ####[address] [place], [place] [address] Aspartate aminotransferase 14 10-40 IU/L Normal [facility] ([place] (97606) Comment: Performed By: #### CBC, ADIF F, ANEU, LIP, CMP, GFR ####[address] [place], [place] [address] Bili Total 0.2 0.2-1.0 mg/dL Normal 05-23-2017 [facility]) ([id number]) Comment: Performed By: #### CBC, ADIF F, ANEU, LIP, CMP, GFR ####[address] [place], [place] [address] BUN/Creatinine Ratio 13 7-27 ratio Normal 7 [facility] ([place]) (10501) Comment: Performed By: #### CBC, ADIF F, ANEU, LIP, CMP, GFR ####[address] [place], [place] [address] Calcium 9.2 8.4-10.2 mg/dL Normal 05-23-2017 [facility]) ([id number]) Comment: Performed By: #### CBC, ADIF F, ANEU, LIP, CMP, GFR ####[address] [place], [place] [address] Chloride 107 98-107 mEq/L Normal 05-23-2017 [facility] ([place]) ([id number]) Comment: Performed By: #### CBC, ADIF F, ANEU, LIP, CMP, GFR ####[address] [place], [place] [address] CO2 27 22-29 mEq/L Normal 05-23-2017 [facility]) ([id number]) Comment: Performed By: #### CBC, ADIF F, ANEU, LIP, CMP, GFR ####[address] [place], [place] [address] Creatinine 0.6 0.6-1.2 mg/dL Normal 05-23-2017 [facility] ([place]) (32720) Comment: Performed By: #### CBC, ADIF F, ANEU, LIP, CMP, GFR ####[address] [place], [place] [address] Electrolyte Balance 6.0 mEq/L Normal 05-23-2017 [facility] ([place]) ([id number]) Comment: Performed By: #### CBC, ADIF F, ANEU, LIP, CMP, GFR ####[address] [place], [place] [address] Globulin 2.7 G/dL Normal 05-23-2017 [facility] ([place]) (56992) Comment: Performed By: #### CBC, ADIF F, ANEU, LIP, CMP, GFR ####[address] [place], [place] [address] Glucose mass conc 92 70-105 mg/dL Normal 05-23-2017 [facility] ([place]) ([id number]) Comment: Performed By: #### CBC, ADIF F, ANEU, LIP, CMP, GFR ####[address] [place], [place] [address] Potassium molar conc 4.0 3.5-5.1 mEq/L Normal 7 [facility] ([place]) (0000 0) Comment: Performed By: #### CBC, ADIF F, ANEU, LIP, CMP, GFR ####[address] [place], [place] [address] Protein 7.1 6.0-8.3 G/dL Normal 05-23-2017 [facility] ([place]) ([id number]) Comment: Performed By: #### CBC, ADIF F, ANEU, LIP, CMP, GFR ####[address] [place], [place] [address] Sodium 140 136-146 mEq/L Normal 05-23-2017 [facility] ([place]) ([id number]) Comment: Performed By: #### CBC, ADIF F, ANEU, LIP, CMP, GFR ####[address] [place], [place] [address] Urea nitrogen 7.7 7.0-18.0 mg/dL Normal 05-23-2017 Pending sale to [facility] ([place]) (73144) Comment: Performed By: #### CBC, ADIF F, ANEU, LIP, CMP, GFR ####[address] [place], [place] [address] cbc on 2017-05-23 Erythrocyte distribution 12.3 11.5-14.5 % Normal 05-23 [facility] Auto Ratio (RBC) [facility] ([place]) (27530) Comment: Performed By: #### CBC, ADIF F, ANEU, LIP, CMP, GFR ####[address] [place], [place] [address] Erythrocytes (RBC) 4.36 4.20-5.40 10 6/mcL Normal 05-23-2017 [facility] ([place]) ([id number]) Comment: Performed By: #### CBC, ADIF F, ANEU, LIP, CMP, GFR ####[place] [address] [place], [place] [address] Hematocrit (HCT) 38.6 37.0-47.0 % Normal 05-23-2017 [facility] ([place]) ([id number]) Comment: Performed By: #### CBC, ADIF F, ANEU, LIP, CMP, GFR ####[place] [address] [place], [place] [address] Hemoglobin mass conc 13.1 12.0-16.0 G/dL Normal 7 [facility] (Bld) [facility] ([place]) ([id number]) Comment: Performed By: #### CBC, ADIF F, ANEU, LIP, CMP, GFR ####[address] [place], [place] [address] MCH 30.1 27.0-31.2 pg Normal 05-23-2017 [facility] ([place]) ([id number]) Comment: Performed By: #### CBC, ADIF F, ANEU, LIP, CMP, GFR ####[address] [place], [place] [address] MCHC mass conc (RBC) 33.9 33.0-37.0 G/dL Normal 7 [facility] ([place]) (0000 0) Comment: Performed By: #### CBC, ADIF F, ANEU, LIP, CMP, GFR ####[address] [place], [place] [address] MCV 88.6 80.0-94.0 fL Normal 05-23-2017 [facility] ([place]) ([id number]) Comment: Performed By: #### CBC, ADIF F, ANEU, LIP, CMP, GFR ####[address] [place], [place] [address] Platelet mean volume 8.6 7.4-10.4 fL Normal 7 [facility] ([facility]) ([place]) (0000 0) Comment: Performed By: #### CBC, ADIF F, ANEU, LIP, CMP, GFR ####[address] [place], [place] [address] Platelets 219 130-400 10 3/mcL Normal 05-23-2017 [facility] ([place]) (07973) Comment: Performed By: #### CBC, ADIF F, ANEU, LIP, CMP, GFR ####[address] [address] [place], [place] [address] WBC (Leukocytes) 6.10 4.60-10.80 10 3/mcL Normal 05-23-2017 [facility] ([place]) (0000 0) Comment: Performed By: #### CBC, ADIF F, ANEU, LIP, CMP, GFR ####[address] [place], [place] [address] .urinalysis microscopic (ao) on 2017-05-23 UA Squam Epithelial 5-10 None Seen Abnormal 05-23-2017 [facility] ([place]) (0000 0) Comment: Performed By: #### UA, UAMIC AO, PREGU ####[address] [place], [place] [address] UA WBC None Seen None Seen Normal 05-23-2017 [facility]) ([id number]) Comment: Performed By: #### UA, UAMIC AO, PREGU ####[address] [place], [place] [address] Urine, erythrocytes 0-5 None Seen Abnormal 05-23-2017 [facility]) (0000 0) Comment: Performed By: #### UA, UAMIC AO, PREGU ####[address] [place], [place] [address] .neuabs on Neutrophils 3.20 2.85-6.16 10 3/mcL Normal 05-23-2017 [facility] ([place]) ([id number]) Comment: Performed By: #### CBC, ADIF F, ANEU, LIP, CMP, GFR ####[address] [place], [place] [address] .gfr on 2017-05-23 eGFR (non-black) >60 mL/min/{1.73_m2} Normal 2016 [facility] ([place]) (0000 0) Comment: Result Comment: GFR Populati on mean for , Non- Americans Ages 20-29 = 116 m L/min/1.73 sq.m. Ages 30-39 = 107 mL/min/1.73 sq.m. Ages 40-49 = 99 mL/min /1.73 sq.m. Ages 50-59 = 93 mL/min/1.73 sq.m. Ages 60-69 = 85 mL/min/1.73 sq.m. Ages 70+ = 75 mL/min/1.73 sq.m.Chronic Kidney Disease: Less than 60 mL/min/1.73 square metersEnd Stage Renal Disease: Less than 15 mL/min /1.73 square meters Performed By: #### CBC, ADIF F, ANEU, LIP, CMP, GFR ####[address] [place], [place] [address] eGFR (non-black) 154 ml/min/1.73sqm Normal 05-23-20 [facility] ([place]) (0000 0) Comment: Result Comment: GFR Populati on mean for , Non- Americans Ages 20-29 = 116 m L/min/1.73 sq.m. Ages 30-39 = 107 mL/min/1.73 sq.m. Ages 40-49 = 99 mL/min /1.73 sq.m. Ages 50-59 = 93 mL/min/1.73 sq.m. Ages 60-69 = 85 mL/min/1.73 sq.m. Ages 70+ = 75 mL/min/1.73 sq.m.Chronic Kidney Disease: Less than 60 mL/min/1.73 square metersEnd Stage Renal Disease: Less than 15 mL/min /1.73 square meters Performed By: #### CBC, ADIF F, ANEU, LIP, CMP, GFR ####[address] [place], [place] [address] .auto diff on 05-23 Basophils Auto #/vol 0.00 0.00-0.19 10 3/mcL Normal 7 [facility] ([facility]) ([id number]) Comment: Performed By: #### CBC, ADIF F, ANEU, LIP, CMP, GFR ####[address] [place], [place] [address] Basophils/100 WBC Auto (d) 0.4 0.0-2.5 % Normal 0 05-23-2017 [facility] ([place]) (0000 0) Comment: Performed By: #### CBC, ADIF F, ANEU, LIP, CMP, GFR ####[address] [place], [place] [address] Eosinophils 0.10 0.00-0.40 10 3/mcL Normal 05-23-2017 [facility] ([place]) ([id number]) Comment: Performed By: #### CBC, ADIF F, ANEU, LIP, CMP, GFR ####[address] [place], [place] [address] Eosinophils/100 leukocytes 2.0 0.0-7.0 % Normal [facility] ([place]) (0000 0) Comment: Performed By: #### CBC, ADIF F, ANEU, LIP, CMP, GFR ####[address] [place], [place] [address] Lymphocytes 2.40 0.77-3.85 10 3/mcL Normal 05-23-2017 [facility] ([place]) (98342) Comment: Performed By: #### CBC, ADIF F, ANEU, LIP, CMP, GFR ####[address] [place], [place] [address] Lymphocytes/100 leukocytes 39.4 10.0-50.0 % Normal [facility] ([place]) (56092) Comment: Performed By: #### CBC, ADIF F, ANEU, LIP, CMP, GFR ####[address] [place], [place] [address] Monocytes 0.40 0.15-1.00 10 3/mcL Normal 05-23-2017 [facility] ([place]) (99937) Comment: Performed By: #### CBC, ADIF F, ANEU, LIP, CMP, GFR ####[place] [address] [place], [place] [address] Monocytes/100 leukocytes 6.2 1.7-13.0 % Normal 05-23 [facility] ([place]) (0000 0) Comment: Performed By: #### CBC, ADIF F, ANEU, LIP, CMP, GFR ####[address] [place], [place] [address] Neutrophils/100 WBC Auto 52.0 37.0-80.0 % Normal 05-23 [facility]) ([id number]) Comment: Performed By: #### CBC, ADIF F, ANEU, LIP, CMP, GFR ####[address] [place], [place] [address] office visit on 03-14-26 Documentation of Done Invalid 04-02-2017 - [place] current medications Interpretation Code 04-02-2017 Internal Medicine (procedure) ([id number]) Fall risk assessment No Invalid [place] Interpretation Code 04-02-2017 [facility] ([id number]) Protein mass conc Done Invalid 04-02-2017 - [place] Interpretation Code 04-02-2017 [facility] ([id number]) Vital Signs Vital Sign Description Value / Unit Date Location The following section is limited to 5 en tries per type and includes entries from the following time range: [id number] - [id number] 0. BMI (Body Mass Index) 29.21 kg/m2 06-17-2017 - 06-17-2017 [facility] (80633) BMI (Body Mass Index) 29.13 kg/m2 04-02-2017 - 04-02-2017 [facility] (65543) Body Temperature 97.8 [degF] 06-17-2017 - 06-17-2017 [facility] ([id number]) Body Temperature 98.6 [degF] 04-02-2017 - 04-02-2017 [facility] (87754) BP Diastolic 83 mm[Hg] 06-17-2017 - 06-17-2017 [facility] (69253) BP Diastolic 81 mm[Hg] 04-02-2017 - 04-02-2017 [facility] ([id number]) BP Systolic 126 mm[Hg] 06-17-2017 - 06-17-2017 [facility] ([id number]) BP Systolic 123 mm[Hg] 04-02-2017 - 04-02-2017 [facility] ([id number]) Height 167.64 cm 06-17-2017 - 06-17-2017 [facility] ([id number]) Height 167.64 cm 04-02-2017 - 04-02-2017 [facility] ([id number]) Pulse (Heart Rate) 84 /min 06-17-201706-17-2017 [facility] ([id number]) Pulse (Heart Rate) 90 /min 04-02-2017 - 04-02-2017 [facility] ([id number]) Respiratory Rate 18 /min 06-17-201706-17-2017 [facility] (34775) Weight 82.1 kg 06-17-2017 - 06-17-2017 [facility] (58501) Weight 81.87 kg 04-02-2017 - 04-02-2017 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[place] Internal [Mass/volume] in Serum or 06-17-2017 Medici ne (57893) Plasma Electrocardiogram 04-02-2017 - Karinapollyongbe Pillo Osvaldoantonyelvira [place] Internal 06-17-2017 MD Medicine ([id number]) Ferritin [Mass/volume] in 04-02-2017 - Veronika Garcia [facility] Internal Serum or Plasma 06-17-2017 Medicine ([id number]) Follow Up Appt 1 month 04-02-2017 - Karinapollyongshawn Pillo Osvaldoantonyelvira [facility] Internal 06-17-2017 Medicine ([id number]) Iron [Mass/volume] in Serum 04-02-2017 - Karinaelver gibson Internal or Plasma 06-17-2017 Medicine ([id number]) Iron and Iron binding 04-02-2017 - Karinaelver Joe on Internal capacity panel - Serum or 06-17-2017 Medici ne (95207) Plasma Plan of Treatment Plan Description Date Location Appointment Appointment 07-29-2017 - [place] Inte [facility]nal 07-29-2017 Medicine ([id number]) Follow Up Appt 6 weeks Follow Up Appt 6 weeks 06-17-2017 [facility] 06-17-[facility] ([id number]) Other Referral Other Referral 06-17-2017 - [place] [facility] 06-17-2017 Medicine ([id number]) *TSH *TSH 06-17-2017 - [place] [facility] 06-17-2017 Medicine ([id number]) *T4 free *T4 free 06-17-2017 - [place] [facility] 06-17-2017 Medicine ([id number]) Appointment Appointment 06-17-2017 - [place] [facility] 06-17-2017 Medicine (02772) Appointment Appointment 04-30-2017 - [place] [facility] 04-30-2017 Medicine ([id number]) *EKG (Done in Hospital) *EKG (Done in Hospital) 04-02-2017 - [place] Internal 06-17-2017 Medicine ([id number]) *Ferritin *Ferritin 04-02-2017 - [place] [facility] 06-17-2017 Medicine ([id number]) Follow Up Appt 1 month Follow Up Appt 1 month 04-02-2017 - [facility] Internal 06-17-2017 Medicine (46351) *Iron *Iron 04-02-2017 - [place] [facility] 06-17-2017 Medicine (54033) *IBC Iron & Total Iron *IBC Iron & Total Iron 04-02-2017 - [facility] Internal Binding Capacity Binding Capacity 06-17-2017 Medicine (4469 1) *EKG (Done in Hospital) *EKG (Done in Hospital) 04-02-2017 - [place] Internal 04-02-2017 Medicine (00148) *Ferritin *Ferritin 04-02-2017 - [place] Inte [facility] 04-02-2017 Medicine (08447) Follow Up Appt 1 month Follow Up Appt 1 month 04-02-2017 - [facility] Internal 04-02-2017 Medicine ([id number]) *Iron *Iron 04-02-2017 - [place] Inte [facility]nal 04-02-2017 Medicine (03032) *IBC Iron & Total Iron *IBC Iron & Total Iron 04-02-2017 - [facility] Internal Binding Capacity Binding Capacity 04-02-2017 Medicine (4469 1) Payers Payer Name Policy Number Location [employer] [id number] [facility] ([id number]) The following information is from the original human readable contentNo Payer Records FoundNo Payer Records FoundNo Payer Records Found Summary Purpose Family History No Family History Records FoundNo Family History Records FoundNo Family History Records Found Advance Directives No Advanced Directives Records FoundNo Advanced Directives Records FoundNo Advanced Directives Records Found Additional Source Comments FOR RECORDS PERTAINING TO PATIENTS WHO ARE OR HAVE BEEN ENROLLED IN A CHEMICAL DEPENDENCY/SUBSTANCE ABUSE PROGRAM, SOME INFORMATION MAY BE OMITTED. This clinical summary was aggregated from multiple sources. Caution should be exercised in using it in the provision of clinical care. This summary normalizes information from multiple sources, and as a consequence, information in this document may materially changethe coding, format and clinical context of patient data. In addition, data may be omittedin some cases. CLINICAL DECISIONS SHOULD BE BASED ON THE PRIMARY CLINICAL RECORDS. [employer] [facility] provides no warranty or guarantee of the accuracy or completeness of information in this document. UNRECOGNIZED CONTENT PROVIDED BELOW FOR UNRECOGNIZED SECTION INFORMATION SOURCE DATE CREATED AUTHOR AUTHOR'S ORGANIZATIO N 03/03/2018 [facility] Found ation ([place]) DATE CREATED AUTHOR AUTHOR'S ORGANIZATIO N 01/28/2019 [facility] DATE CREATED AUTHOR AUTHOR'S ORGANIZATIO N 02/07/[address] [facility]
== END ==
PROVIDERS: PCP Internal Medicine; Referring Provider Internal Medicine; Visit Provider Internal Medicine
DX: R53.81 Other malaise (principal); R53.83 Other fatigue; M19.90 Unspecified osteoarthritis, unspecified site; Z13.29 Encounter for screening for other suspected endocrine disorder
CPT/HCPCS: 80053; 84439; 84443; 86038; 86140; 86225; 86235; 86431

== ENCOUNTER → 2020-02-02 11:54 | Outpatient (CLI) | payer MEDICAID, SELFPAY ==
[2020-02-01 15:13] VITALS: BMI 33.0
[2020-02-02 15:30] LABS: Absolute Lymphocyte Count 1.94 X10^3/uL (0.83-4.51); Absolute Neutrophil Count 3.3 X10^3/uL (2.0-7.7); Basophil# 0.01 X10^3/uL; Basophil% 0.2 % (0-1); Eosinophil# 0.07 X10^3/uL; Eosinophils% 1.2 % (0-5); Hematocrit 40.6 % (37-47); Hemoglobin 13.5 g/dL (12.0-15.0); Lymphocyte # 1.94 X10^3/ul (4.0); Lymphocyte % 33.9 % (19-41); Mean Corp Hgb Conc 33.3 g/dL (32-36); Mean Corpuscular Hgb 30.5 pg (27.0-32.0); Mean Corpuscular Volume 91.9 fL (81-99); Mean Platelet Vol. 10.8 fl (6.2-12.0); Monocyte# 0.35 X10^3/uL; Monocyte% 6.1 % (0-10); NRBC Flagged by Analyzer 0 % (0-5); Neutrophil # 3.33 X10^3/uL (2.7-7.7); Neutrophil % 58.3 % (47-70); Platelet Count 266 K/mm3 (150-450); RBC Distribution Width CV 11.6 % (11.6-14.6); RBC Distribution Width SD 38.9 fl (35.1-43.9); Red Blood Count 4.42 M/mm3 (4.2-5.4); White Blood Count 5.7 K/mm3 (4.4-11.0)
[2020-02-02 15:39] LABS: Magnesium 1.9 mg/dL (1.6-2.6)
[2020-02-02 15:47] LABS: Erythrocyte Sedimentation Rate 12 mm/hr (0-20)
--- OUTSIDE RECORDS SUMMARY | 2020-06-20 17:52 | XMS RPT_ITS | CCD ---
:2000 External Reference #:[id number] Author Organization [facility] Care Team Providers Name Role Phone Rosemarie Zamora Unavailable Unavailable Pillo Loredo MD Unavailable Sofia Zamora Unavailable Unavailable Nitza HUMPHREYS Unavailable Unavailable WISAM Unavailable Unavailable Marcin KEATING Unavailable Unavailable WISAM Unavailable Unavailable Rolanda GOODWIN-C, A Unavailable Unavailable Allergies Reported Allergen Reaction(s) Severity Date of Onset Location aspirin [facility] dicine (44470) montelukast numbness in legs Critical, 04-02-2017 - [place] [facility] [place] (43729) nystatin Hemotologist advises Critical, [facility]. Critical Internal Me dicine (54805) Medications Medication Name Sig Date Prescriber Location desmopressin STIMATE SOLN prn 04-02-2017 [place] Internal DESMOPRESSIN Medi cine (48400) ACETATE SOLN [id number] Veronika Loredo MD STIMATE SOLN prn 04-02-2017 [facility] Internal Medicine DESMOPRESSIN ACETATE SOLN [id number] ([id number]) Veronika Loredo MD STIMATE SOLN prn 04-02-2017 [facility] Internal Medicine DESMOPRESSIN ACETATE SOLN [id number] (11637) Veronika Loredo MD STIMATE SOLN prn 04-02-2017 [facility] Internal Medicine DESMOPRESSIN ACETATE SOLN [id number] ([id number]) Veronika Loredo MD STIMATE SOLN prn 04-02-2017 [facility] Internal Medicine DESMOPRESSIN ACETATE SOLN [id number] (05977) Veronika Loredo MD STIMATE SOLN prn 04-02-2017 [facility] Internal Medicine DESMOPRESSIN ACETATE SOLN [id number] (64249) Veronika Loredo MD lysine L-LYSINE TABS prn 04-02-2017 [place] [facility] LYSINE TABS [id number] Veronika ([id number]) Pillo Loredo MD L-LYSINE TABS prn LYSINE 04-02-2017 [place] [facility] TABS [id number] Veronika Loredo ([id number]) L-LYSINE TABS prn LYSINE 04-02-2017 [place] [facility] TABS [id number] Veronika Loredo ([id number]) L-LYSINE TABS prn LYSINE 04-02-2017 [place] [facility] TABS [id number] Veronika Loredo ([id number]) L-LYSINE TABS prn LYSINE 04-02-2017 [place] [facility] TABS [id number] Veronika Loredo ([id number]) medroxyPROGESTERone PROVERA 2.5 MG TABS prn 04-02-2017 [place] Internal MEDROXYPROGESTERONE Medicine (07657) ACETATE [id number] Veronika Loredo MD Problems Active Problems Category Problem Name Status Date Location Cardiac dysrhythmias Irregular heart beat Active 04-02-2017 - [place] Internal [facility] (79077 ) Past or Other Problems Category Problem Name Status Date Location Malaise and fatigue Malaise and fatigue Completed 06-17-2017 - [facility] Internal Medicine (85784 ) Other nutritional; Weight loss Completed 06-17-2017 - [facility] on Internal endocrine; and Medicine (297 09) metabolic disorders Residual codes; Family history of Completed [facility] Internal unclassified alcoholism Medicine (09730 ) Unclassified Insomnia Completed 04-02-2017 - [place] Int ernal Medicine (51340 ) Results Result Name Value Range Unit Interpretation Flag Date Location progress note on 24-01-23 Partner Management Consultant Patient ID: Re Garcia i s a 19 y.o. female. Her chief complaint(s) Normal 01-28-2019 [facility] Authentication include: ED Follow Up ([facility] yesterday, breathing issue) [facility] (93537) Interface Message Text Assessment 1. Exacerbation of [...] ago. The patient was treate d at [facility]. Her diagnosis was asthma exacerbation. H er [...] She is alert. progress note on 24-01-22 Partner Management Consultant Patient ID: Re Garcia i s a 19 y.o. female. Her chief complaint(s) Normal 01-27-2019 [facility] Authentication include: Breathing Problem ( tight feeling in chest, asthma flare up on friday) [facility] Interface Message Assessment H ospital Text 1. Mild asthma with exacerbation, unspecified whether persis tent (79773) Plan Re was seen today for breathing [...] chest tightness and cough, seen here at [facility] Started on Prednisone and fe lt a [...] SpO2 98 %. progress note on 25-01-20 Partner Management Consultant Patient ID: Re Garcia i s a 19 y.o. female. Her chief complaint(s) Normal 01-25-2019 [facility] Authentication include: [facility] ([id number]) Interface Message Text Assessment 1. Exacerbation of [...] progress on 2019-01 Protein mass HNO ID: [id number] Normal 01-14-20 [facility] conc Author: Gregorio Wren ([id number]) Service: ? Author Type: Physician Type: Progress Notes Filed: 01/13/2019 3:11 PM Note Text: Patient presents with: Nausea AND Vomiting: x 3 days Diarrhea: x 3 days Headache: x 3 days HPI: Feeling sick for 3 days. Her niece had a gastrointestinal il lness 1-2 weeks ago. 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 RE GARCIA I ([id number]) 2000 [facility] Date Time Provider Department ([id number]) 01/13/19 2:30 PM GREGORIO MENDOZA [facility] During your visit today, we recorded [...] ago. 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 female. Her chief complaint(s) Normal 12-25-2018 [facility] Authentication include: Weight Related Concerns [facility] (65304) Interface Message Text Assessment 1. Polyuria 2. [...] labs. She would like a referral to principal trainer. This was done. No follow-ups on file. [...] She is alert. progress note on 26-07-26 Partner Management Consultant Patient ID: Re tomas a 18 y.o. female. Her chief complaint(s) Normal 08-03-2018 [facility] Authentication include: Right Knee Pain [facility] ([id number]) Interface Message Text Assessment 1. Right knee [...] - mild limp Neurological: She is alert. [facility] note on 2017-06-21 [facility] Note Normal 1 [facility] [place] (70823) xr chest 2 views on 2017-06-19 XR CHEST 2 VIEWS ORIGINALXR CHEST 2 VIEWS Normal 06-19-2017 [facility] CLINICAL STATEMENT: [facility] [place] SOB/Cough/Fever, patient ([id number]) reports cough and sore throat for 2 [...] on 2017-06-19 Patient Summary Documents Normal 06-08 [facility] [place] (65230) office visit: acute visit insomnia on 2017-06-17 Documentation of Done Invalid 06-17-2017 - [facility] current medications Interpretation Code 06-17-2017 Group (47003) (procedure) Fall risk No Invalid 06-17-2017 - [place] assessment Interpretation Code 7 Internal Medicine ( 94206) Protein mass conc Done Invalid 06-17-2017 - [place] Interpretation Code 06-17-2017 Internal Medicine ( 93157) Protein mass conc yes Invalid 06-17-2017 - [place] Interpretation Code 06-17-2017 Internal Medicine ( 15122) Smoking cessation yes Invalid 06-17-2017 - [facility] education Interpretation Code 06-17-2017 Group (87919) (procedure) Tobacco smoking Light Invalid 06-17-2017 - [place] status NHIS tobacco Interpretation Code 06-17-20 17 Internal smoker Medicine ( 29392) Tobacco use CPHS Light Invalid 06-17-2017 - [facility] tobacco Interpretation Code 06-17-2017 Group (61929) smoker lab report: thyroid stim hormone (tsh) on 2017-06-17 Thyrotropin Qn 0.37 0.358-3.74 u[iU]/mL Invalid 06-17-2017 - [place] Interpretation 06-17-2017 Inte rnal Code Medicine (18541) lab report: t4 free direct on 2017-06-17 T4 free 1.10 0.76-1.46 ng/dL Invalid 06-17-2017 - [place] mass conc Interpretation Code 06-17-2017 Internal Medicine (89898) lab report: iron+iron binding capacity on 2017-06-17 Iron binding 312 250-450 ug/dL Invalid 06-17-2017 - [place] capacity mass Interpretation Code 2016 Internal conc Medicine (09921) iron binding 312 250-450 ug/dL Invalid 06-17-[address] [facility] capacity, total Interpretation Code 06-08 Group (25763) Iron mass conc 86 50-170 ug/dL Invalid 06-17-2017 - [place] Interpretation Code 06-17-2017 Internal Medicine (14258) Iron saturation 27.6 15.0-55.0 % Invalid 06-17-2017 - [place] mass fraction Interpretation Code 2016 Internal Medicine (63351) iron saturation 27.6 15.0-55.0 % Invalid 06-17-2017 - [place] [facility] percent, serum Interpretation Code 06-17 Group (44932) lab report: ferritin on 2017-06-17 Ferritin mass 80 8-252 ng/mL Invalid 06-17-2017 - [place] conc Interpretation Code 06-17-2017 Internal Medicine (15974) [facility] admit note on 2017-05-30 [facility] Admit Normal 05-30-2017 [facility] [place] Note (26894) ua on 2017-05-23 UA Appear CLEAR Normal 05-23-2017 [facility] ([place] (23393) Comment: Performed By: #### UA, UAMIC AO, PREGU ####[address] [place], [place] [address] UA Blood LARGE Normal 05-23-2017 [facility] ([place] (92399) Comment: Performed By: #### UA, UAMIC AO, PREGU ####[address] [place], [place] [address] UA Leuk Est TRACE Normal 05-23-2017 [facility] [place] (88145) Comment: Performed By: #### UA, UAMIC AO, PREGU ####[address] [place], [place] [address] UA Nitrite NEGATIVE Normal 05-23-2017 [facility] [place] (07269) Comment: Performed By: #### UA, UAMIC AO, PREGU ####[address] [place], [place] [address] UA pH 7.0 Normal 05-23-2017 [facility] [place] (23062) Comment: Performed By: #### UA, UAMIC AO, PREGU ####[address] [place], [place] [address] UA Protein NEGATIVE Normal 05-23-2017 [facility] [place] (40319) Comment: Performed By: #### UA, UAMIC AO, PREGU ####[address] [place], [place] [address] UA Spec Grav 1.015 Normal 05-23-2017 [facility] ([place] (49548) Comment: Performed By: #### UA, UAMIC AO, PREGU ####[address] [place], [place] [address] UA Specimen Type Clean Catch Normal 05-23-2017 [facility] [place] (64768) Comment: Performed By: #### UA, UAMIC AO, PREGU ####[address] [place], [place] [address] UA Urobilinogen 0.2 E.U./dL Normal 05-23-2017 [facility] ([place] (77475) Comment: Performed By: #### UA, UAMIC AO, PREGU ####[address] [place], [place] [address] Urine, color YELLOW Normal 05-23-2017 [facility] [place] (00412) Comment: Performed By: #### UA, UAMIC AO, PREGU ####[address] [place], [place] [address] Urine, glucose NEGATIVE mg/dL Normal 05-23-2017 [facility] ([place] (23136) Comment: Performed By: #### UA, UAMIC AO, PREGU ####[address] [place], [place] [address] Urine, ketones presence NEGATIVE Normal 2016 [facility] [place] (46892) Comment: Performed By: #### UA, UAMIC AO, PREGU ####[address] [place], [place] [address] Urine, urobilinogen NEGATIVE {Maranda'U}/dL Normal 05-23 [facility] [place] (46044) Comment: Performed By: #### UA, UAMIC AO, PREGU ####[address] [place], [place] [address] pregu on 2017-05-23 HCG ( test) Ql (U) Negative Normal [facility] ([place] (0000 0) Comment: Performed By: #### UA, UAMIC AO, PREGU ####[address] [place], [place] [address] test HCG not Invalid 05-23-2017 [facility] (u) int detected. Interpretation [facility] ([place] (10313) Comment: Performed By: #### UA, UAMIC AO, PREGU ####[address] [place], [place] [address] patient summary documents on 2017-05-23 Patient Summary Documents Normal 05-09 [facility] [place] (85405) lip on 2017-05-23 Lipase Level 34 8-78 IU/L Normal 05-23-2017 [facility]) (82034) Comment: Performed By: #### CBC, ADIF F, ANEU, LIP, CMP, GFR ####[place] [address] [place], [place] [address] ed note-provider on 2017-05-23 ED Note-Provider Normal 05-23-2017 [facility] ([place]) (46223) ct abdomen/pelvis w/contrast on 2017-05-23 CT ABDOMEN/PELVIS ORIGINALCT ABDOMEN/PELVIS Normal 05-23-2017 [facility] W/CONTRAST W/ IV AND ORAL Foun dation ([place]) CONTRAST:Multiplanar (13488) coronal, sagittal, and axial reconstructions were reviewed [...] the resident's findings and interpretation. Interpreted By: bAebe Azulreliminary Report By: Alden Gaviria DOElectronically Signed By: Abebe Azul MD Dictated Date: 05/23/2017 7:17:09 PM Prelim Date: 05/23/2017 7:22:21 PM Sign Date: 05/23/2017 7:25:49 PM cmp on 2017-05-23 Alanine aminotransferase (ALT) 11 10-35 IU/L Normal 05-23-2017 [facility]) (80666) Comment: Performed By: #### CBC, ADIF F, ANEU, LIP, CMP, GFR ####[address] [place], [place] [address] Albumin 4.4 3.5-5.0 G/dL Normal 05-23-2017 [facility]) (95155) Comment: Performed By: #### CBC, ADIF F, ANEU, LIP, CMP, GFR ####[address] [place], [place] [address] Albumin/Globulin Ratio 1.6 1.1-2.5 ratio Normal 017 [facility]) (0000 0) Comment: Performed By: #### CBC, ADIF F, ANEU, LIP, CMP, GFR ####[address] [place], [place] [address] Alk Phos 78 40-135 IU/L Normal 05-23-2017 [facility]) (83265) Comment: Performed By: #### CBC, ADIF F, ANEU, LIP, CMP, GFR ####[address] [place], [place] [address] Aspartate aminotransferase 14 10-40 IU/L Normal [facility] ([address]86) Comment: Performed By: #### CBC, ADIF F, ANEU, LIP, CMP, GFR ####[address] [place], [place] [address] Bili Total 0.2 0.2-1.0 mg/dL Normal 05-23-2017 [facility]) (87967) Comment: Performed By: #### CBC, ADIF F, ANEU, LIP, CMP, GFR ####[address] [place], [place] [address] BUN/Creatinine Ratio 13 7-27 ratio Normal 7 [facility] [place] (38346) Comment: Performed By: #### CBC, ADIF F, ANEU, LIP, CMP, GFR ####[address] [place], [place] [address] Calcium 9.2 8.4-10.2 mg/dL Normal 05-23-2017 [facility]) (98639) Comment: Performed By: #### CBC, ADIF F, ANEU, LIP, CMP, GFR ####[address] [place], [place] [address] Chloride 107 98-107 mEq/L Normal 05-23-2017 [facility] [place] (47562) Comment: Performed By: #### CBC, ADIF F, ANEU, LIP, CMP, GFR ####[address] [place], [place] [address] CO2 27 22-29 mEq/L Normal 05-23-2017 [facility]) (27941) Comment: Performed By: #### CBC, ADIF F, ANEU, LIP, CMP, GFR ####[address] [place], [place] [address] Creatinine 0.6 0.6-1.2 mg/dL Normal 05-23-2017 [facility] [place] (95772) Comment: Performed By: #### CBC, ADIF F, ANEU, LIP, CMP, GFR ####[address] [place], [place] [address] Electrolyte Balance 6.0 mEq/L Normal 05-23-2017 [facility] [place] (27668) Comment: Performed By: #### CBC, ADIF F, ANEU, LIP, CMP, GFR ####[address] [place], [place] [address] Globulin 2.7 G/dL Normal 05-23-2017 [facility] [place] (49419) Comment: Performed By: #### CBC, ADIF F, ANEU, LIP, CMP, GFR ####[address] [place], [place] [address] Glucose mass conc 92 70-105 mg/dL Normal 05-23-2017 [facility] ([place] (76268) Comment: Performed By: #### CBC, ADIF F, ANEU, LIP, CMP, GFR ####[address] [place], [place] [address] Potassium molar conc 4.0 3.5-5.1 mEq/L Normal 7 [facility] [place] (0000 0) Comment: Performed By: #### CBC, ADIF F, ANEU, LIP, CMP, GFR ####[address] [place], [place] [address] Protein 7.1 6.0-8.3 G/dL Normal 05-23-2017 [facility] [place] (70920) Comment: Performed By: #### CBC, ADIF F, ANEU, LIP, CMP, GFR ####[address] [place], [place] [address] Sodium 140 136-146 mEq/L Normal 05-23-2017 [facility] [place] (27895) Comment: Performed By: #### CBC, ADIF F, ANEU, LIP, CMP, GFR ####[address] [place], [place] [address] Urea nitrogen 7.7 7.0-18.0 mg/dL Normal 05-23-2017 [facility] ([place] (45338) Comment: Performed By: #### CBC, ADIF F, ANEU, LIP, CMP, GFR ####[address] [place], [place] [address] cbc on 2017-05-23 Erythrocyte distribution 12.3 11.5-14.5 % Normal 05-23 [facility] Auto Ratio (RBC) [facility] [place] (27317) Comment: Performed By: #### CBC, ADIF F, ANEU, LIP, CMP, GFR ####[address] [place], [place] [address] Erythrocytes (RBC) 4.36 4.20-5.40 10 6/mcL Normal 05-23-2017 [facility] [place] (66099) Comment: Performed By: #### CBC, ADIF F, ANEU, LIP, CMP, GFR ####[place] [address] [place], [place] [address] Hematocrit (HCT) 38.6 37.0-47.0 % Normal 05-23-2017 [facility] ([place] (42386) Comment: Performed By: #### CBC, ADIF F, ANEU, LIP, CMP, GFR ####[place] [address] [place], [place] [address] Hemoglobin mass conc 13.1 12.0-16.0 G/dL Normal 7 [facility] (Bld) [facility] [place] (32760) Comment: Performed By: #### CBC, ADIF F, ANEU, LIP, CMP, GFR ####[address] [place], [place] [address] MCH 30.1 27.0-31.2 pg Normal 05-23-2017 [facility] [place] (04518) Comment: Performed By: #### CBC, ADIF F, ANEU, LIP, CMP, GFR ####[address] [place], [place] [address] MCHC mass conc (RBC) 33.9 33.0-37.0 G/dL Normal 7 [facility] [place] (0000 0) Comment: Performed By: #### CBC, ADIF F, ANEU, LIP, CMP, GFR ####[address] [place], [place] [address] MCV 88.6 80.0-94.0 fL Normal 05-23-2017 [facility] ([place] (39693) Comment: Performed By: #### CBC, ADIF F, ANEU, LIP, CMP, GFR ####[address] [place], [place] [address] Platelet mean volume 8.6 7.4-10.4 fL Normal 7 [facility] ([facility]) ([place]) (0000 0) Comment: Performed By: #### CBC, ADIF F, ANEU, LIP, CMP, GFR ####[address] [place], [place] [address] Platelets 219 130-400 10 3/mcL Normal 05-23-2017 [facility] ([place] (68142) Comment: Performed By: #### CBC, ADIF F, ANEU, LIP, CMP, GFR ####[address] [place], [place] [address] WBC (Leukocytes) 6.10 4.60-10.80 10 3/mcL Normal 05-23-2017 [facility] ([place] (0000 0) Comment: Performed By: #### CBC, ADIF F, ANEU, LIP, CMP, GFR ####[address] [place], [place] [address] .urinalysis microscopic (ao) on 2017-05-23 UA Squam Epithelial 5-10 None Seen Abnormal 05-23-2017 [facility] ([place] (0000 0) Comment: Performed By: #### UA, UAMIC AO, PREGU ####[address] [place], [place] [address] UA WBC None Seen None Seen Normal 05-23-2017 [facility]) (47444) Comment: Performed By: #### UA, UAMIC AO, PREGU ####[address] [place], [place] [address] Urine, erythrocytes 0-5 None Seen Abnormal 05-23-2017 [facility]) (0000 0) Comment: Performed By: #### UA, UAMIC AO, PREGU ####[address] [place], [place] [address] .neuabs on Neutrophils 3.20 2.85-6.16 10 3/mcL Normal 05-23-2017 [facility] ([place] (64161) Comment: Performed By: #### CBC, ADIF F, ANEU, LIP, CMP, GFR ####[address] [place], [place] [address] .gfr on 2017-05-23 eGFR (non-black) >60 mL/min/{1.73_m2} Normal 2016 [facility] ([place] (0000 0) Comment: Result Comment: GFR Populati [...] F, ANEU, LIP, CMP, GFR ####[address] [place], [place] [address] eGFR (non-black) 154 ml/min/1.73sqm Normal 05-23-20 [facility] ([place] (0000 0) Comment: Result Comment: GFR Populati [...] F, ANEU, LIP, CMP, GFR ####[address] [place], [place] [address] .auto diff on 05-23 Basophils Auto #/vol 0.00 0.00-0.19 10 3/mcL Normal 7 [facility] ([facility]) (75162) Comment: Performed By: #### CBC, ADIF F, ANEU, LIP, CMP, GFR ####[address] [place], [place] [address] Basophils/100 WBC Auto (d) 0.4 0.0-2.5 % Normal 0 05-23-2017 [facility] ([place] (0000 0) Comment: Performed By: #### CBC, ADIF F, ANEU, LIP, CMP, GFR ####[address] [place], [place] [address] Eosinophils 0.10 0.00-0.40 10 3/mcL Normal 05-23-2017 [facility] ([place] (83184) Comment: Performed By: #### CBC, ADIF F, ANEU, LIP, CMP, GFR ####[address] [place], [place] [address] Eosinophils/100 leukocytes 2.0 0.0-7.0 % Normal [facility] ([place]) (0000 0) Comment: Performed By: #### CBC, ADIF F, ANEU, LIP, CMP, GFR ####[address] [place], [place] [address] Lymphocytes 2.40 0.77-3.85 10 3/mcL Normal 05-23-2017 [facility] ([place] (41134) Comment: Performed By: #### CBC, ADIF F, ANEU, LIP, CMP, GFR ####[address] [place], [place] [address] Lymphocytes/100 leukocytes 39.4 10.0-50.0 % Normal [facility] ([place] (26148) Comment: Performed By: #### CBC, ADIF F, ANEU, LIP, CMP, GFR ####[address] [place], [place] [address] Monocytes 0.40 0.15-1.00 10 3/mcL Normal 05-23-2017 [facility] ([place] (02400) Comment: Performed By: #### CBC, ADIF F, ANEU, LIP, CMP, GFR ####[address] [place], [place] [address] Monocytes/100 leukocytes 6.2 1.7-13.0 % Normal 05-23 [facility] ([place]) (0000 0) Comment: Performed By: #### CBC, ADIF F, ANEU, LIP, CMP, GFR ####[address] [place], [place] [address] Neutrophils/100 WBC Auto 52.0 37.0-80.0 % Normal 05-23 [facility]) (72209) Comment: Performed By: #### CBC, ADIF F, ANEU, LIP, CMP, GFR ####[address] [place], [place] [address] office visit on 03-14-26 Documentation of Done Invalid 04-02-2017 - [place] current medications Interpretation Code 04-02-2017 [facility] Medicine (procedure) (45472) Fall risk assessment No Invalid [place] Interpretation Code 04-02-2017 [facility] (08487) Protein mass conc Done Invalid 04-02-2017 - [place] Interpretation Code 04-02-2017 [facility] (31736) Vital Signs Vital Sign Description Value / Unit Date Location The following section is limited to 5 en tries per type and includes entries from the following time range: [id number] - [id number] 0. BMI (Body Mass Index) 29.21 kg/m2 06-17-2017 - 06-17-2017 [facility] Internal Medicine (33338) BMI (Body Mass Index) 29.13 kg/m2 04-02-2017 - 04-02-2017 [facility] Medicine (31067) Body Temperature 97.8 [degF] 06-17-2017 - 06-17-2017 [facility] Internal Medicine (00499) Body Temperature 98.6 [degF] 04-02-2017 - 04-02-2017 [facility] Internal Medicine (72146) BP Diastolic 83 mm[Hg] 06-17-2017 - 06-17-2017 [facility] Internal Medicine (34539) BP Diastolic 81 mm[Hg] 04-02-2017 - 04-02-2017 [facility] Medicine (88607) BP Systolic 126 mm[Hg] 06-17-2017 - 06-17-2017 [facility] Internal Medicine (86461) BP Systolic 123 mm[Hg] 04-02-2017 - 04-02-2017 [facility] Internal Medicine (82041) Height 167.64 cm 06-17-2017 - 06-17-2017 [facility] Internal Medicine (28442) Height 167.64 cm 04-02-2017 - 04-02-2017 [facility] Internal Medicine (48651) Pulse (Heart Rate) 84 /min 06-17-201706-17-2017 [facility] Internal Medicine (59710) Pulse (Heart Rate) 90 /min 04-02-2017 - 04-02-2017 [facility] Internal Medicine (07425) Respiratory Rate 18 /min 06-17-201706-17-2017 [facility] Internal Medicine (41571) Weight 82.1 kg 06-17-2017 - 06-17-2017 [facility] Internal Medicine (11718) Weight 81.87 kg 04-02-2017 - 04-02-2017 [facility] Internal Medicine (61466) Encounters Date Type Reason Provider Location 06-19-2017 - Emergency department DIA smith:Pillo 06-19-2017 patient visit HERNAN JOEL 05-23-2017 - Emergency department CINTHYA saunders:B 05-23-2017 patient visit HRENAN JOEL Procedures Procedure Name Date Provider Location Thyrotropin [Units/volume] 06-17-2017 - Keith [facility]OLOG[facility] Serum or Plasma 06-17-2017 Medicine (185 18) Thyroxine (T4) free 06-17-2017 - Keith Orantes MICROPALEONTOLOGIST-C [place] [facility] [Mass/volume] in Serum or 06-17-2017 Medici ne (96615) Plasma Electrocardiogram 04-02-2017 - Karinapollyongbe Pillo Osvaldoantonyelvira [place] Internal 06-17-2017 MD Medicine (11923) Ferritin [Mass/volume] in 04-02-2017 - Veronika Garcia [facility] Internal Serum or Plasma 06-17-2017 Medicine ([id number]) Follow Up Appt 1 month 04-02-2017 - Karinapollyongshawn Pillo Osvaldoantonyelvira Trin[facility] Internal 06-17-2017 Medicine ([id number]) Iron [Mass/volume] in Serum 04-02-2017 - Karinaelver [facility] Internal or Plasma 06-17-2017 Medicine ([id number]) Iron and Iron binding 04-02-2017 - Karinaelver Joe on Internal capacity panel - Serum or 06-17-2017 Medici ne ([id number]) Plasma Plan of Treatment Plan Description Date Location Appointment Appointment 07-29-2017 - [place] [facility] 07-29-2017 Medicine ([id number]) Follow Up Appt 6 weeks Follow Up Appt 6 weeks 06-17-2017 - [place] [facility] 06-17-2017 Medicine ([id number]) Other Referral Other Referral 06-17-2017 - [place] [facility] 06-17-2017 Medicine ([id number]) *TSH *TSH 06-17-2017 - [place] [facility] 06-17-2017 Medicine ([id number]) *T4 free *T4 free 06-17-2017 - [place] [facility] 06-17-2017 Medicine ([id number]) Appointment Appointment 06-17-2017 - [place] [facility] 06-17-2017 Medicine ([id number]) Appointment Appointment 04-30-2017 - [place] [facility] 04-30-2017 Medicine ([id number]) *EKG (Done in Hospital) *EKG (Done in Hospital) 04-02-2017 - [place] [facility] 06-17-2017 Medicine ([id number]) *Ferritin *Ferritin 04-02-2017 - [place] [facility] 06-17-2017 Medicine ([id number]) Follow Up Appt 1 month Follow Up Appt 1 month 04-02-2017 - [facility] Internal 06-17-2017 Medicine ([id number]) *Iron *Iron 04-02-2017 - [place] [facility] 06-17-2017 Medicine ([id number]) *IBC Iron & Total Iron *IBC Iron & Total Iron 04-02-2017 - [facility] Internal Binding Capacity Binding Capacity 06-17-2017 Medicine ([id number]) *EKG (Done in Hospital) *EKG (Done in Hospital) 04-02-2017 - [place] [facility] 04-02-2017 Medicine ([id number]) *Ferritin *Ferritin 04-02-2017 - [place] [facility] 04-02-2017 Medicine ([id number]) Follow Up Appt 1 month Follow Up Appt 1 month 04-02-2017 - [facility] Internal 04-02-2017 Medicine ([id number]) *Iron *Iron 04-02-2017 - [place] [facility] 04-02-2017 Medicine ([id number]) *IBC Iron & Total Iron *IBC Iron & Total Iron 04-02-2017 - [facility] Internal Binding Capacity Binding Capacity 04-02-2017 Medicine ([id number]) Payers Payer Name Policy Number Location [employer] [id number] [facility] ([id number]) The following information is from the original [...] BE BASED ON THE PRIMARY CLINICAL RECORDS. [facility] provides no warranty or guarantee of the accuracy or completeness of information in this document. UNRECOGNIZED CONTENT PROVIDED BELOW FOR UNRECOGNIZED SECTION INFORMATION SOURCE DATE CREATED AUTHOR AUTHOR'S ORGANIZATIO N 03/03/2018 [facility] ([place]) DATE CREATED AUTHOR AUTHOR'S ORGANIZATIO N 01/28/2019 [facility] DATE CREATED AUTHOR AUTHOR'S ORGANIZATIO N 02/07/2019 [facility]
== END ==
PROVIDERS: PCP Internal Medicine; Referring Provider Nurse Practitioner Family; Visit Provider Nurse Practitioner Family
DX: M19.90 Unspecified osteoarthritis, unspecified site (principal); R20.0 Anesthesia of skin; R20.2 Paresthesia of skin; R25.2 Cramp and spasm
CPT/HCPCS: 83735; 85025; 85652

== ENCOUNTER 2020-04-24 01:06 | Emergency (ER) | payer MEDICAID, SELFPAY ==
[2020-04-17 13:40] VITALS: BMI 33.0
[2020-04-24 01:10] VITALS: BP 117/71; PULSE 96; RESP 16; TEMP 37; O2SAT 97; BMI 33.0
--- NOTE | 2020-04-24 01:27 | RAD_ITS ---
STUDY: X-RAY - LEFT ANKLE REASON FOR EXAM: Female, 20 years old. ROLLED LT ANKLE -- UNABLE TO MOVE FOOT/ANKLE TECHNIQUE: 3 view(s) of the ankle. COMPARISON: 12/13/2018 left ankle x-ray FINDINGS: Normal visualized distal tibia and fibula. The fibula is partially obscured on the oblique and lateral view. Normal medial and lateral malleoli. Normal tibiotalar articulation and ankle mortise. Normal visualized talus and calcaneus. The visualized subtalar, talonavicular, calcaneocuboid and tarsal articulations are normal. Since prior study there is interval superficial soft tissue edema of the lateral ankle at the level of the lateral malleolus. There is mild medial soft tissue edema. RAD/Ankle min 3 Views IMPRESSION: Soft tissue edema adjacent to the lateral malleolus. A fracture line is not definitively identified. Cannot exclude ligamentous injury. Electronically Signed: Coco Nath MD at 2:10 EDT Tel , Service support ,
--- NOTE | 2020-04-24 01:28 | ED.VISSUMM ---
- ER Visit Summary Date of Service: 04/24/20 Chief Complaint: Left ankle injury History of Present Illness: The patient is a 20 F who presents with a left ankle injury that occurred tonight. Patient states she stepped on a ledge and inverted her left ankle. Patient states she fell. Patient states the pain is sharp. Patient states nothing makes the pain better or worse. Patient admits to some numbness and tingling in her ankle. Patient denies any head injury or loss of consciousness. Patient denies any other injuries. Physical Examination: Vital signs are stable. Patient is afebrile. Patient is in no acute distress. Musculoskeletal exam reveals tenderness, edema, and ecchymosis over the lateral aspect of the left ankle. There is also some mild tenderness on the medial aspect of the left ankle. There is no tenderness over the proximal fibula or fifth metatarsal. Sensation was intact light touch in all digits. Capillary refill is less than 2 seconds in all digits. Pedal pulses are equal bilaterally. Range of motion was limited in all motions of the left ankle secondary to pain. Test Results: X-rays of the left ankle were obtained. There is no acute fracture. These were interpreted by the radiologist and myself. Emergency Department Course and Treatment: Patient was given a dose of [place] here. Patient was given ice pack. Patient was given an Aircast. Patient was instructed to ice and elevate the left ankle. Patient was instructed to take Tylenol as needed for pain. Patient was instructed to follow-up with her primary care physician in 5 to 7 days. Patient understood and was agreeable with the plan. All questions were answered. Disposition: Discharge home Impression: 1. Acute sprain left ankle This note was generated with [employer] dictation software. It may contain incorrect words, spelling, and punctuation that were not noted in review of the chart prior to signing ED Disposition - Plan for ED Patient: Disposition: Home or Assisted Living Diagnosis: Sprain of left ankle Instructions: ED Sprain Ankle W X Ray Referrals: Veronika Loredo MD [Primary Care Provider] - 5-7 Days
[2020-04-24] MEDS: HYDROcodone Bitartrate/Apap 5/325 Tablet PO (01:56)
[2020-04-24 03:07] VITALS: BP 91/49; PULSE 80; RESP 16; O2SAT 98
[2020-04-24 03:08] VITALS: BP 91/49; PULSE 80; RESP 16; O2SAT 98
--- NOTE | 2020-04-24 03:17 | ED.RN ---
pt with n/v when standing up to leave. offered pt zofran, pt denied and stated she wanted to go home. offered pt crackers and water, pt denied.
== END 2020-04-24 03:17 | disposition home or self-care (01) ==
PROVIDERS: Emergency Provider Emergency Medicine; PCP Internal Medicine
DX: S93.402A Sprain of unspecified ligament of left ankle, initial encounter (principal); W22.8XXA Striking against or struck by other objects, initial encounter; X50.1XXA Overexertion from prolonged static or awkward postures, initial encounter; Y93.9 Activity, unspecified; Y92.89 Other specified places as the place of occurrence of the external cause; Y99.9 Unspecified external cause status
CPT/HCPCS: 73610; 99284

== ENCOUNTER 2020-04-24 22:20 | Emergency (ER) | payer MEDICAID, SELFPAY ==
[2020-04-24 01:10] VITALS: BMI 33.0
[2020-04-24 22:21] VITALS: BP 133/74; PULSE 104; RESP 16; TEMP 36.8; O2SAT 97; BMI 31.4
--- NOTE | 2020-04-24 23:01 | ED.DCSUM_ITS ---
History of Present Illness Chief Complaint: Lower Extremity Injury Narrative: 20-year-old female presenting with difficulty ambulating secondary to left ankle sprain. She was seen and evaluated in the ED yesterday at [facility] for the same. She states he was sent home with an Aircast, crutches. She states she has trouble ambulating thus her right leg gets numb and weak. She states he is currently being worked up for MS. She states she is not stable on crutches. She requests a walking boot as she states that last time she had an ankle sprain this did improve it greatly. - Past Medical History (1) Endometriosis of pelvic peritoneum Status: Chronic (2) Von Willebrand disease Status: Chronic Past Medical History - Allergies and Home Meds Allergies/Adverse Reactions: Allergies aspirin Allergy (Verified 03/16/20 15:53) Other metoclopramide [From Reglan] Allergy (Verified 03/16/20 15:53) [place]LTON LIKE MY SKIN WAS CRAWLING montelukast sodium [From Singulair] Allergy (Verified 03/16/20 15:53) Other NSAIDS (Non-Steroidal Anti-Inflamma Allergy (Verified 03/16/20 15:53) Other Primary Care Physician: Veronika Loredo MD [Primary Care Provider] - Past Medical History: - - Reviewed Surgical History: noncontributory Lives: Spouse/ Significant Other Smoking Status: Never smoker Alcohol: None Drugs: None Review of Systems General: Denies: Chills, Fever, Sweats Eyes: Denies: Visual changes - bilaterally, Diplopia ENT: Denies: Rhinorrhea, Sore throat Cardiovascular: Denies: Chest pain, Palpitations Respiratory: Denies: Dyspnea, Cough, Dyspnea on exertion Gastrointestinal: Denies: Abdominal pain, Nausea, Vomiting, Diarrhea, Melena, Hematochezia Genitourinary: Denies: Dysuria, Hematuria, Frequency Musculoskeletal: Reports: Swelling - Left ankle, Extremity Pain - Ankle Skin: Denies: Rash, Wounds Neurological: Denies: Headache, Weakness, Numbness Physical Exam Vital Signs/Narrative: Vital Signs Temp Pulse Resp BP Pulse Ox 04/24/20 22:21 98.3 F 104 H 16 133/74 H 97 General: Well nourished, Well developed, No Acute Distress Head: Normocephalic, Atraumatic Eyes: Perrl, EOMI ENT: Moist mucous membranes Cardiovascular: Regular rate, Regular rhythm, No murmurs Respiratory: No distress, CTA bilaterally Back: Nontender Extremities: - - Is to palpation left lateral malleolus. There is swelling and ecchymosis. Left foot is neurovascular intact with brisk cap refill to all 5 toes. No tenderness to palpation over the Achilles tendon. Skin: Normal color, No rash Neurological: Alert, Oriented x3 Psychological: Normal affect, Normal Mood Diagnostic/Tx/Re-eval - Medical Decision Making Patient was seen and evaluated for continued left ankle pain as well as difficulty ambulating on crutches. Patient requests a walking boot. This was given to her. She already had an x-ray yesterday which was negative for fracture. She will follow-up outpatient to ensure resolution. She is stable for discharge. Impression: 1. Left ankle sprain ED Disposition - Plan for ED Patient: Disposition: Home or Assisted Living Instructions: ED Sprain Ankle W X Ray Referrals: Veronika Loredo MD [Primary Care Provider] -
[2020-04-24 23:17] VITALS: BP 122/74; PULSE 88; RESP 17; O2SAT 99
== END 2020-04-24 23:18 | disposition home or self-care (01) ==
PROVIDERS: Emergency Provider Student in an Organized Health Care Education/Training Program; PCP Internal Medicine
DX: S93.402D Sprain of unspecified ligament of left ankle, subsequent encounter (principal); X58.XXXD Exposure to other specified factors, subsequent encounter; N80.3 Endometriosis of pelvic peritoneum; D68.0 Von Willebrand disease; Z88.6 Allergy status to analgesic agent; Z88.8 Allergy status to other drugs, medicaments and biological substances
CPT/HCPCS: 73610; 99283; 99284

== ENCOUNTER → 2020-05-16 11:00 | Outpatient (CLI) | payer MEDICAID, SELFPAY ==
[2020-05-16 10:10] VITALS: BMI 32.4
[2020-05-16 13:48] LABS: Vitamin B12 505 pg/mL (211-911)
[2020-05-17 20:07] LABS: Free Kappa Light Chains 8.8 mg/L (3.3-19.4); Free Lambda Light Chains 11.7 mg/L (5.7-26.3)
== END ==
PROVIDERS: PCP Internal Medicine; Referring Provider Psychiatry & Neurology Neurology; Visit Provider Psychiatry & Neurology Neurology
DX: G62.9 Polyneuropathy, unspecified (principal)
CPT/HCPCS: 82607; 82746; 83883

== ENCOUNTER → 2020-05-25 16:56 | Outpatient (CLI) | payer MEDICAID, SELFPAY ==
[2020-05-16 10:10] VITALS: BMI 32.4
--- NOTE | 2020-05-25 16:57 | MRI_ITS ---
STUDY: MRI BRAIN WITH AND WITHOUT CONTRAST REASON FOR EXAM: Female, 20 years old. worsening headaches, migraines, and quot;pins and amp; needles and quot; TECHNIQUE: Standardized multiplanar fat and water weighted pulse sequences were obtained. IV 18cc dotarem was administered for the contrast portion of the examination. COMPARISON: CT of the brain 11/12/2016 FINDINGS: Normal size of the ventricles and extra-axial spaces for the patient''s age. Normal white matter tracts of the supratentorial brain. Normal bilateral basal ganglia. Normal thalami. There is no extra-axial fluid accumulation. Normal flow voids within the major intracranial circulation suggesting patency by spin echo criteria. Normal venous enhancement. There is no enhancing intra-axial or extra-axial abnormality. Normal sella turcica, pituitary gland, infundibular stalk, optic chiasm and hypothalamus. Normal tectal plate and pineal gland. Normal midbrain, savanna and medulla. Normal cerebellum. Normal basal cisterns. Normal bilateral temporal bones. Normal bilateral internal auditory canals. No demonstrated orbital abnormality, within the constraints of a routine brain study. Normal visualized paranasal sinuses. Normal calvarium and skull base. Normal visualized soft tissue structures. Normal visualized upper cervical spine. MRI/Brain W/WO Contrast IMPRESSION: Normal unenhanced and enhanced MRI of the brain. Electronically Signed: Yandel Johnson MD at 20:28 EDT , Service support ,
== END ==
PROVIDERS: PCP Internal Medicine; Referring Provider Psychiatry & Neurology Neurology; Visit Provider Psychiatry & Neurology Neurology
DX: G43.909 Migraine, unspecified, not intractable, without status migrainosus (principal)
CPT/HCPCS: 70553; A9575

== ENCOUNTER → 2020-07-12 10:21 | Outpatient (CLI) | payer MEDICAID, SELFPAY ==
[2020-05-16 10:10] VITALS: BMI 32.4
--- NOTE | 2020-07-12 13:46 | NEURO ---
NCS and/or EMG Patient Report Ordering Doctor: Reinaldo Hoffman DATE OF SERVICE: 07/12/20 eR Garcai presents for electrodiagnostic testing of the upper limbs. She reports widespread burning, numbness and tingling in both upper limbs. Symptoms are intermittent. Electrodiagnostic findings: Median motor nerve demonstrates normal distal latency, amplitude and conduction velocity bilaterally. Ulnar motor splints within normal limits bilaterally. Median and ulnar F waves are normal. Sensory responses are within normal limits. On needle EMG, all muscles tested in the upper limb showed no evidence of denervation with normal motor unit action potentials. Electrodiagnostic assessment: This is a normal electrodiagnostic study of the upper limbs. There is no electrodiagnostic evidence for peripheral neuropathy or cervical radiculopathy. If there are any further questions, please do not hesitate to contact me.
== END ==
PROVIDERS: PCP Internal Medicine; Referring Provider Psychiatry & Neurology Neurology; Visit Provider Psychiatry & Neurology Neurology
DX: G62.9 Polyneuropathy, unspecified (principal); G56.03 Carpal tunnel syndrome, bilateral upper limbs; G56.23 Lesion of ulnar nerve, bilateral upper limbs
CPT/HCPCS: 95886; 95913

== ENCOUNTER → 2020-09-13 13:52 | Outpatient (CLI) | payer MEDICAID, SELFPAY ==
[2020-05-16 10:10] VITALS: BMI 32.4
[2020-09-18 18:44] LABS: HPV Reflexed? NOT INDICATED
== END ==
PROVIDERS: PCP Internal Medicine; Visit Provider Obstetrics & Gynecology
DX: Z12.4 Encounter for screening for malignant neoplasm of cervix (principal)
CPT/HCPCS: 88175; G0145

== ENCOUNTER 2020-11-23 16:55 | Emergency (ER) | payer MEDICAID, SELFPAY ==
[2020-05-16 10:10] VITALS: BMI 32.4
[2020-11-23 16:56] VITALS: BP 139/75; PULSE 83; RESP 14; TEMP 36.1; O2SAT 97; BMI 33.5
--- NOTE | 2020-11-23 17:32 | ED.VISSUMM ---
- ER Visit Summary Date of Service: 11/23/20 Chief Complaint: Nausea History of Present Illness: The patient is a 20 F 3 of asthma, von Willebrand's disease and endometriosis. Recent trigger point injection for her endometriosis. States that today around 6 AM started having nausea but no vomiting. No diarrhea or constipation. No dysuria. No hematuria. No fever. Denies any cough, shortness of breath or chest pain. Patient states that today was the first time she had these subcu trigger point injections done. She denies any rash or itching. Physical Examination: Well-appearing 20-year-old female. Accompanied by another female. Vital signs are stable afebrile. H EENT exam normal. Neck nontender no lymphadenopathy. Lungs clear to auscultation bilaterally. Heart regular rhythm no murmur. Abdomen soft nontender normal bowel sounds no peritoneal signs. Injection sites are unremarkable. Extremities moves all 4. Calves nontender no edema no cords. Neurologically she is awake and alert. No focal motor deficits. Back nontender. Test Results: Normal white count of 8 hemoglobin 14. Chemistries normal normal creatinine and gap. Liver enzymes normal. Repeat exam she is doing well at 6:31 PM. Exam is benign. We discussed her test results. She will be discharged to home. Emergency Department Course and Treatment: Female with chills and nausea. Clinically unremarkable exam. She be treated IV fluids and Zofran. Screening labs to be obtained. Treatment Plan: Off work today. Fluids and rest. Zofran as needed. Disposition: Discharge Impression: Acute chills with nausea secondary to viral syndrome This note was generated with [employer] dictation software. It may contain incorrect words, spelling, and punctuation that were not noted in review of the chart prior to signing ED Disposition - Plan for ED Patient: Referrals: Veronika Loredo MD [Primary Care Provider] -
[2020-11-23] MEDS: 0.9% Normal Saline 1,000 ML 1000 ML IV (17:47)
[2020-11-23] MEDS: Ondansetron 4 MG/2 ML Vial IV (17:47)
[2020-11-23 18:03] LABS: Absolute Lymphocyte Count 2.01 X10^3/uL (0.83-4.51); Absolute Neutrophil Count 5.8 X10^3/uL (2.0-7.7); Basophil# 0.03 X10^3/uL; Basophil% 0.4 % (0-1); Eosinophil# 0.05 X10^3/uL; Eosinophils% 0.6 % (0-5); Hematocrit 43.3 % (37-47); Hemoglobin 14.7 g/dL (12.0-15.0); Lymphocyte # 2.01 X10^3/ul (4.0); Lymphocyte % 23.9 % (19-41); Mean Corp Hgb Conc 33.9 g/dL (32-36); Mean Corpuscular Hgb 31.3 pg (27.0-32.0); Mean Corpuscular Volume 92.3 fL (81-99); Mean Platelet Vol. 10.3 fl (6.2-12.0); Monocyte# 0.52 X10^3/uL; Monocyte% 6.2 % (0-10); NRBC Flagged by Analyzer 0 % (0-5); Neutrophil # 5.77 X10^3/uL (2.7-7.7); Neutrophil % 68.7 % (47-70); Platelet Count 268 K/mm3 (150-450); RBC Distribution Width CV 11.7 % (11.6-14.6); RBC Distribution Width SD 39.5 fl (35.1-43.9); Red Blood Count 4.69 M/mm3 (4.2-5.4); White Blood Count 8.4 K/mm3 (4.4-11.0)
[2020-11-23 18:15] LABS: ALB/GLOB Ratio 1.1 RATIO (0.9-2.4); AST(SGOT) 11 U/L (15-37); Alanine Aminotransfer ALT/SGPT 23 U/L (13-56); Albumin, Serum 4.3 g/dL (3.2-5.0); Alkaline Phosphatase 96 U/L (45-117); Anion Gap 6 (5-15); BUN 14 mg/dL (7-18); BUN/Creat Ratio 19.9 RATIO (10-20); Calcium,Total 9.5 mg/dL (8.5-10.1); Chloride 103 mmol/L (98-107); EST Glomerular Filtration Rate 111 mL/min (>60); Est Glom Filt Rate - Afr Amer 134 mL/min (>60); Estimated Creatinine Clearance 119.01 ml/min; Globulin 3.8 g/dL (2.2-4.2); Glucose 97 mg/dL (74-106); Potassium 3.6 mmol/L (3.5-5.1); Protein, Total 8.1 g/dL (6.4-8.2); Sodium Level 137 mmol/L (136-145)
--- NOTE | 2020-11-23 18:37 | ED.DEP ---
ED Disposition - Plan for ED Patient: Disposition: Home or Assisted Living Instructions: ED Viral Syndrome (Adult) Prescriptions: Ondansetron [Zofran Odt] 4 mg PO Q8H PRN PRN #7 tablet PRN Reason: Nausea Prescription Printed Referrals: Veronika Loredo MD [Primary Care Provider] - 3-5 Days if not improving Additional Instructions: Plenty of fluids and rest. Tylenol and/or Motrin for body aches. Zofran as needed for nausea. Most likely this is a viral syndrome. It could also possibly be a reaction to the trigger point injections but there is no signs of that on your exam and no way to prove it with the labs.
== END 2020-11-23 19:03 | disposition home or self-care (01) ==
PROVIDERS: Emergency Provider Emergency Medicine; PCP Internal Medicine
DX: B34.9 Viral infection, unspecified (principal); R11.2 Nausea with vomiting, unspecified; R68.83 Chills (without fever); J45.909 Unspecified asthma, uncomplicated; D68.0 Von Willebrand disease
CPT/HCPCS: 80053; 85025; 96361; 96374; 99283; J7030; A4216; J2405

== ENCOUNTER 2021-01-12 10:35 | Emergency (ER) | payer MEDICAID, SELFPAY ==
[2021-01-12 10:36] VITALS: BP 129/76; PULSE 88; RESP 16; TEMP 36.3; O2SAT 97; BMI 31.4
--- NOTE | 2021-01-12 10:50 | CT_ITS ---
STUDY: CT BRAIN WITHOUT CONTRAST REASON FOR EXAM: Female, 20 years old. Head injury following a fall. Headaches and vomiting. RADIATION DOSAGE (If Supplied By Facility): CTDIvol = ( 38.43 ) mGy, DLP = ( 698.28 ) mGycm TECHNIQUE: Transaxial CT imaging of the brain was performed without administration of intravenous contrast material. Individualized dose optimization techniques were used for this CT. COMPARISON: No relevant priors. FINDINGS: Normal soft tissue structures. Normal calvarium. Normal size ventricles and extra-axial spaces for the patient''s age. Normal white matter tracts of the cerebral hemispheres. Normal basal ganglia and thalami. Normal brainstem. Normal cerebellum. There is no intracranial hemorrhage. There are no findings of an acute ischemic infarction. Normal visualized paranasal sinuses. CT/Brain/Head without Contrast IMPRESSION: Normal unenhanced CT scan of the brain. Electronically Signed: Price Sethi MD at 11:26 EDT , Service support ,
--- NOTE | 2021-01-12 10:50 | CT_ITS ---
STUDY: CT CERVICAL SPINE WITHOUT CONTRAST REASON FOR EXAM: Female, 20 years old. Injury following a fall. Headaches and vomiting. RADIATION DOSAGE (If Supplied By Facility): CTDIvol = ( 23.17 ) mGy, DLP = ( 463.08 ) mGycm TECHNIQUE: High resolution transaxial imaging was performed without contrast material. Sagittal and coronal images were reconstructed. Individualized dose optimization techniques were used for this CT. COMPARISON: None FINDINGS: Normal craniovertebral junction. Normal anterior atlantoaxial articulation. Normal odontoid process. There is straightening of the normal cervical lordosis. Normal vertebral bodies and posterior osseous elements. C2-3: Normal endplates. Normal disc height and morphology. Normal central canal and intervertebral neuroforamina. C3-4: Normal endplates. Normal disc height and morphology. Normal central canal and intervertebral neuroforamina. C4-5: Normal endplates. Normal disc height and morphology. Normal central canal and intervertebral neuroforamina. C5-6: Normal endplates. Normal disc height and morphology. Normal central canal and intervertebral neuroforamina. C6-7: Normal endplates. Normal disc height and morphology. Normal central canal and intervertebral neuroforamina. C7-T1: Normal endplates. Normal disc height and morphology. Normal central canal and intervertebral neuroforamina. Normal visualized soft tissue structures. CT/Spine Cervical without Contras IMPRESSION: Straightening of the normal cervical lordosis. Electronically Signed: Price Sethi MD at 11:27 EDT , Service support ,
--- NOTE | 2021-01-12 10:56 | EDS_ITS ---
HPI History of Present Illness Chief Complaint: Fall Informant: patient Narrative Narrative: Patient states that around 2:00 in the morning she slipped on wet linoleum and fell backwards striking her head. She states that she went back to bed when she woke this morning and had a headache, light sensitivity, nausea and vomiting. She states that her neck is sore as well. She has a history of von Willebrand's. She states she did not want to come to the hospital but on the advice of family she came. [facility] Medical History (Updated 01/12/21 @ 11:[address] Clifton Magdaleno DO) Asthma Endometriosis History of pneumonia Insomnia Migraines Ovarian cyst Seasonal allergies Von Willebrand disease, type I Home Medications albuterol sulfate 2 puff INHALATION PRN PRN 01/13/19 [History Last Taken Unknown] aminocaproic acid 250 mg PO PRN PRN 01/13/19 [History Last Taken Unknown] biotin 1 mg capsule 1 mg PO DAILY 04/17/20 [History Last Taken Unknown] cetirizine 10 mg PO 04/24/20 [History Last Taken Unknown] duloxetine 60 mg capsule,delayed release 60 mg PO QHS #60 cap 05/16/20 [Rx Last Taken Unknown] sumatriptan succinate 50 mg tablet See Rx Instructions PO .COMPLEX #9 tab 05/16/20 [Rx Last Taken Unknown] ondansetron 4 mg PO Q8H PRN PRN #7 tablet 11/23/20 [Rx Last Taken Unknown] ondansetron 4 mg PO Q6H PRN PRN #12 tab 01/12/21 [Rx Last Taken Unknown] Allergy/AdvReac Type Severity Reaction Status Date / Time aspirin Allergy Other Verified 01/12/21 10:36 metoclopramide [From Reglan] Allergy CARLTON LIKE Verified 01/12/21 10:36 MY SKIN WAS CRAWLING montelukast sodium Allergy Other Verified 01/12/21 10:36 [From Singulair] NSAIDS (Non-Steroidal Allergy Other Verified 01/12/21 10:36 Anti-Inflamma Family History Mother Depression with anxiety Alcoholism Uncle Alcoholism Grandmother Alcoholism Depression with anxiety Grandfather Alcoholism Depression with anxiety Surgical History H/O laparoscopy Social History Smoking Status: Current some day smoker alcohol intake: current alcohol intake frequency: holidays/special occasions only substance use type: does not use what type of physical activity do you participate in: walking frequency: daily ROS ROS ED Constitutional Constitutional ED: Denies chills or weight loss Eyes Eyes: Reports other Details: Photophobia ; Denies change in vision or diplopia ENT ENT ED: Denies ear pain, rhinorrhea or sore throat Cardiovascular Cardiovascular: Denies chest pain, orthopnea, palpitations or racing heartbeat Respiratory/Chest Respiratory/Chest: Denies cough, dyspnea or orthopnea Gastrointestinal Gastrointestinal: Reports nausea and vomiting; Denies abdominal pain or diarrhea Genitourinary Genitourinary ED: Denies dysuria, hematuria or urinary frequency Musculoskeletal Musculoskeletal: Reports neck pain; Denies arthralgias or myalgias Integumentary Denies abscess or rash Neurologic Neurologic: Reports headache(s); Denies weakness Psychiatric Psychiatric: Denies anxiety, depression, suicidal ideation or suicidal thoughts Endocrine Endocrinology: Denies polydipsia, polyphagia or polyuria Allergic/Immunologic Allergic/Immunologic ED: Denies mouth swelling, tongue swelling or urticaria EXAM Physical Exam Const Vital Signs: 01/12/21 10:36 Temperature 97.3 F L Temperature Source Temporal Pulse Rate 88 Respiratory Rate 16 Blood Pressure 129/76 H Blood Pressure Mean 93 Pulse Ox 97 Oxygen Delivery Method Room Air Positive well nourished and well developed General Appearance ED: well developed HEENT Reports normocephalic, head/scalp atraumatic and moist mucous membranes HEENT Narrative: Patient has mild photophobia Eyes PERRL and EOMs intact bilaterally Neck no lymphadenopathy, supple and no JVD General: tenderness Resp normal respiratory effort and clear to auscultation bilaterally Cardio regular rate, regular rhythm and no murmurs GI normal to inspection, nondistended, normoactive bowel sounds and non-tender Palpation: soft Back/Spine no CVA tenderness and normal ROM Extremity normal to inspection General Extremety ED: Negative for edema General Extremity: Negative for edema Neuro oriented x3 and CN's II-XII intact bilaterally Sensorium / Orientation: alert Motor Exam: strength 5/5 throughout Psych mental status grossly normal Mood & Affect: Negative for depressed or tearful Skin no rashes or lesions noted and no wounds MDM MDM MDM Narrative Medical decision making narrative: CT of the brain and cervical spine were negative for intracranial hemorrhage or fracture. Patient received Zofran and Tylenol. She will be discharged home with prescription for Zofran. She was given concussion instructions. Radiography Diagnostic Testing: Radiology Impression Brain CT 01/12/21 10:50 IMPRESSION: Normal unenhanced CT scan of the brain. Electronically Signed: Price Sethi MD at 11:26 EDT , Service support , Cervical Spine CT 01/12/21 10:50 IMPRESSION: Straightening of the normal cervical lordosis. Electronically Signed: Price Sethi MD at 11:27 EDT , Service support , Discharge Plan Triage Chief Complaint: Fall ED Provider: Clifton Magdaleno Dx/Rx/DC Orders Clinical Impression: Concussion, Acute cervical myofascial strain Instructions: ED Concussion, ED Neck Sprain or Strain Prescriptions: New ondansetron [ondansetron] 4 MG tablet 4 mg PO Q6H PRN PRN (Reason: Nausea) Qty: 12 RF: 0 No Action biotin 1 mg capsule 1 mg PO DAILY RF: 0 duloxetine 60 mg capsule,delayed release(DR/EC) 60 mg PO QHS Qty: 60 RF: 2 sumatriptan succinate 50 mg tablet See Rx Instructions PO .COMPLEX Qty: 9 RF: 2 aminocaproic acid 250 MG/ML solution 250 mg PO PRN PRN (Reason: Bleeding) RF: 0 albuterol sulfate 108 HFA aerosol inhaler 2 puff inhalation PRN PRN (Reason: Wheezing) RF: 0 cetirizine 10 MG tablet 10 mg PO RF: 0 ondansetron 4 MG tablet 4 mg PO Q8H PRN PRN (Reason: Nausea) Qty: 7 RF: 0 Primary Care Provider: Veronika Loredo Referrals: Veronika Loredo MD [Primary Care Provider] - 1 Week Disposition Disposition: Home, self care
[2021-01-12 11:42] VITALS: BP 125/68; PULSE 68; RESP 16; O2SAT 99
[2021-01-12] MEDS: Acetaminophen 500 MG Tablet 1000 MG PO (11:47)
[2021-01-12] MEDS: Ondansetron ODT 4 MG Tablet PO (11:47)
== END 2021-01-12 11:55 | disposition home or self-care (01) ==
PROVIDERS: Emergency Provider Emergency Medicine; PCP Internal Medicine
DX: S06.0X9A Concussion with loss of consciousness of unspecified duration, initial encounter (principal); S16.1XXA Strain of muscle, fascia and tendon at neck level, initial encounter; F17.200 Nicotine dependence, unspecified, uncomplicated; W01.0XXA Fall on same level from slipping, tripping and stumbling without subsequent striking against object, initial encounter
CPT/HCPCS: 70450; 72125; 99282

== ENCOUNTER 2021-03-29 12:48 | Emergency (ER) | payer MEDICAID, SELFPAY ==
[2021-03-29 12:49] VITALS: BP 137/93; PULSE 93; RESP 16; TEMP 36.9; O2SAT 97; BMI 35.0
--- NOTE | 2021-03-29 12:56 | ED.VIS.GI ---
HPI HPI - GI History of Present Illness Chief Complaint: Nausea/Vomiting Detail of Chief Complaint: Nausea and diarrhea Informant: patient Abdominal Pain/Flank Pain Onset: Days (Onset 3 days ago) Context: Sudden Onset Timing: Continuous (The nausea has been continuous) and Intermittent Quality: Cramping Location: Diffuse Current Severity: Mild Maximum Severity: Moderate Worsened by: - (Diarrhea) Relieved by: Nothing Nausea/Vomiting/Emesis GI Symptom: Positive for Nausea; Negative for Vomiting Onset: Days (3 days) Diarrhea/Melena/Hematochezia GI Symptom: Positive for Diarrhea; Negative for Melena and Hematochezia Onset: Days (3 days) Stool Quality: Positive for Loose and Watery; Negative for Mucous, Black, Maroon and BRB per rectum Severity: Moderate Associated Symptoms Associated Symptoms: Negative for Dysuria, Frequency and Hematuria LMP: Beginning of the month Narrative Narrative: 21-year-old female who presents with nausea, abdominal pain and diarrhea that started 3 days ago. She denies ill contacts. She denies blood or mucus in her stool. She denies history of inflammatory bowel disorder or irritable bowel syndrome. She denies eating anything unusual. She has not been on antibiotics in the past month. She does not drink well water. She denies myalgias arthralgias. She denies rash. She denies fever or chills. She denies orthostatic symptoms. He does complain of thirst. She has not taken anything for the nausea or diarrhea. Prior similar symptoms: No Recent Illness/Hospitalization: No [facility] Medical History (Updated 03/29/21 @ 14:[address] Rodney Munoz MD) Asthma Endometriosis History of pneumonia Insomnia Migraines Ovarian cyst Seasonal allergies Von Willebrand disease, type I Home Medications albuterol sulfate 2 puff INHALATION PRN PRN 01/13/19 [History Last Taken Unknown] aminocaproic acid 250 mg PO PRN PRN 01/13/19 [History Last Taken Unknown] biotin 1 mg capsule 1 mg PO DAILY 04/17/20 [History Last Taken Unknown] cetirizine 10 mg PO 04/24/20 [History Last Taken Unknown] duloxetine 60 mg capsule,delayed release 60 mg PO QHS #60 cap 05/16/20 [Rx Last Taken Unknown] sumatriptan succinate 50 mg tablet See Rx Instructions PO .COMPLEX #9 tab 05/16/20 [Rx Last Taken Unknown] ondansetron 4 mg PO Q8H PRN PRN #7 tablet 11/23/20 [Rx Last Taken Unknown] ondansetron 4 mg PO Q6H PRN PRN #12 tab 01/12/21 [Rx Last Taken Unknown] dicyclomine 20 mg PO TIDAC #20 capsule 03/29/21 [Rx Last Taken Unknown] loperamide [Imodium A-D] 2 mg PO Q4H PRN #10 cap 03/29/21 [Rx Last Taken Unknown] ondansetron 4 mg PO Q8H PRN PRN #10 tab 03/29/21 [Rx Last Taken Unknown] Allergy/AdvReac Type Severity Reaction Status Date / Time aspirin Allergy Other Verified 03/29/21 12:52 metoclopramide [From Reglan] Allergy CARLTON LIKE Verified 03/29/21 12:52 MY SKIN WAS CRAWLING montelukast sodium Allergy Other Verified 03/29/21 12:52 [facility] NSAIDS (Non-Steroidal Allergy Other Verified 03/29/21 12:52 Anti-Inflamma Family History Mother Depression with anxiety Alcoholism Uncle Alcoholism Grandmother Alcoholism Depression with anxiety Grandfather Alcoholism Depression with anxiety Surgical History H/O laparoscopy Social History (Updated 03/29/21 @ 12:[address] Rodney Munoz MD) household members: none housing: apartment Smoking Status: Current some day smoker tobacco type: cigarettes alcohol intake: current alcohol intake frequency: holidays/special occasions only substance use type: does not use what type of physical activity do you participate in: walking frequency: daily ROS ROS ED Constitutional Constitutional ED: Denies chills, fever(s), subjective or sweats ENT ENT ED: Denies ear pain, rhinorrhea or sore throat Cardiovascular Cardiovascular: Denies chest pain or palpitations Respiratory/Chest Respiratory/Chest: Denies cough, dyspnea or dyspnea on exertion Gastrointestinal Gastrointestinal: Reports abdominal pain, diarrhea and nausea; Denies constipation, melena or vomiting Genitourinary Genitourinary ED: Denies dysuria, hematuria or urinary frequency Musculoskeletal Musculoskeletal: Denies arthralgias, back pain, myalgias or neck pain Integumentary Denies rash Neurologic Neurologic: Denies headache(s) or weakness Endocrine Endocrinology: Denies polydipsia, polyphagia or polyuria Hematologic/Lymphatic Hematologic/Lymphatic: Denies easy bleeding or easy bruising EXAM Physical Exam Const Vital Signs: 03/29/21 12:49 Temperature 98.5 F Temperature Source Oral Pulse Rate 93 Respiratory Rate 16 Blood Pressure 137/93 H Blood Pressure Mean 107 Pulse Ox 97 Oxygen Delivery Method Room Air Positive well nourished, well developed and obese General Appearance ED: well developed Nutritional Appearance: obese HEENT Reports dry mucous membranes normocephalic and atraumatic Mouth ED: Yes dry mucous membranes Mouth: dry mucous membranes Eyes PERRL and EOMs intact bilaterally General Eye ED: Negative for pale conjunctiva or scleral icterus Neck no lymphadenopathy, supple and no JVD General: Negative for tenderness Resp normal respiratory effort and clear to auscultation bilaterally Cardio regular rate, regular rhythm, S1 normal heart sound, S2 normal heart sound and no murmurs GI non-tender, non-distended and no masses Auscultation: hypoactive bowel sounds; Negative for normoactive bowel sounds Palpation: soft Back/Spine no CVA tenderness Thoracic Spine / Upper Back: Negative for thoracic spinal tenderness Lumbar Spine / Lower Back: Negative for lumbar spinal tenderness Extremity full ROM General Extremety ED: Negative for edema or tenderness General Extremity: Negative for edema Neuro CN's II-XII intact bilaterally and no sensory deficits noted Sensorium / Orientation: alert and oriented to person Motor Exam: strength 5/5 throughout Psych mental status grossly normal and thought process normal Skin no wounds Lesions: no lesions Rashes: no rashes MDM MDM MDM Narrative Medical decision making narrative: Patient presents with nausea and diarrhea. This most likely represents a viral etiology. Since she is had significant mount of diarrhea will obtain a basic metabolic panel to assess renal function and potassium. 1 L of normal saline was ordered. She was administered 4 mg of Zofran for her nausea and Imodium for her diarrhea. Patient was reassessed at 1424. Patient was informed that her blood work is normal. She reports nausea is resolved. Cramping has gotten better. She is had no diarrhea. She will be discharged to home with prescription for Zofran, dicyclomine and Imodium. Lab Data Attestation: I reviewed the patient's lab results. Labs: Laboratory Results - last 24 hr 03/29/21 13:15 Sodium 138 Potassium 3.9 Chloride 105 Carbon Dioxide 29.0 Anion Gap 4 L BUN 11 Creatinine 0.76 Estim Creat Clear Calc 100.26 Est GFR (MDRD) Af Amer 122 Est GFR (MDRD) Non-Af 101 BUN/Creatinine Ratio 14.4 Glucose 91 Calcium 9.1 Discharge Plan Triage Chief Complaint: Nausea/Vomiting ED Provider: Rodney uMnoz Dx/Rx/DC Orders Clinical Impression: Abdominal pain, Nausea, Diarrhea Instructions: ED Diarrhea, Unknown Cause Prescriptions: New ondansetron [ondansetron] 4 MG tablet 4 mg PO Q8H PRN PRN (Reason: Nausea) Qty: 10 RF: 0 dicyclomine 10 MG capsule 20 mg PO TIDAC Qty: 20 RF: 0 loperamide [Imodium A-D] 2 mg capsule 2 mg PO Q4H PRN (Reason: loose stool) Qty: 10 RF: 0 No Action biotin 1 mg capsule 1 mg PO DAILY RF: 0 duloxetine 60 mg capsule,delayed release(DR/EC) 60 mg PO QHS Qty: 60 RF: 2 sumatriptan succinate 50 mg tablet See Rx Instructions PO .COMPLEX Qty: 9 RF: 2 aminocaproic acid 250 MG/ML solution 250 mg PO PRN PRN (Reason: Bleeding) RF: 0 albuterol sulfate 108 HFA aerosol inhaler 2 puff inhalation PRN PRN (Reason: Wheezing) RF: 0 cetirizine 10 MG tablet 10 mg PO RF: 0 ondansetron 4 MG tablet 4 mg PO Q8H PRN PRN (Reason: Nausea) Qty: 7 RF: 0 ondansetron [ondansetron] 4 MG tablet 4 mg PO Q6H PRN PRN (Reason: Nausea) Qty: 12 RF: 0 Primary Care Provider: Veronika Loredo Referrals: Veronika Loredo MD [Primary Care Provider] - 3-5 Days if not improving Disposition Disposition: Home, Self Care
[2021-03-29] MEDS: Dicyclomine 10 MG Capsule 20 MG PO (13:28)
[2021-03-29] MEDS: 0.9% Normal Saline 1,000 ML 1000 ML IV (13:28)
[2021-03-29 13:29] LABS: Anion Gap 4 (5-15); BUN 11 mg/dL (7-18); BUN/Creat Ratio 14.4 RATIO (10-20); Calcium,Total 9.1 mg/dL (8.5-10.1); Chloride 105 mmol/L (98-107); Creatinine, Serum 0.76 mg/dL (0.55-1.02); EST Glomerular Filtration Rate 101 mL/min (>60); Est Glom Filt Rate - Afr Amer 122 mL/min (>60); Estimated Creatinine Clearance 100.26 ml/min; Glucose 91 mg/dL (74-106); Potassium 3.9 mmol/L (3.5-5.1); Sodium Level 138 mmol/L (136-145)
[2021-03-29] MEDS: Loperamide 2 MG Capsule 4 MG PO (13:29)
[2021-03-29] MEDS: Ondansetron 4 MG/2 ML Vial IV (13:29)
[2021-03-29 14:38] VITALS: PULSE 88; RESP 16; O2SAT 98
== END 2021-03-29 14:42 | disposition home or self-care (01) ==
PROVIDERS: Emergency Provider Emergency Medicine; PCP Internal Medicine
DX: R11.2 Nausea with vomiting, unspecified (principal); R10.9 Unspecified abdominal pain; R19.7 Diarrhea, unspecified; E66.9 Obesity, unspecified; F17.210 Nicotine dependence, cigarettes, uncomplicated; D68.0 Von Willebrand disease; G47.00 Insomnia, unspecified; J45.909 Unspecified asthma, uncomplicated; Z79.1 Long term (current) use of non-steroidal anti-inflammatories (NSAID); Z79.899 Other long term (current) drug therapy
CPT/HCPCS: 80048; 96361; 96374; 99283; J7030; J2405

== ENCOUNTER → 2021-04-02 15:26 | Outpatient (CLI) | payer MEDICAID, SELFPAY ==
[2021-03-29 12:49] VITALS: BMI 35.0
[2021-04-03 09:32] LABS: HIV - WCH Non-Reactive (Nonreactive); Hepatitis B Surface Antigen Non-Reactive (Nonreactive); Hepatitis C Antibody Non-Reactive (Nonreactive); Syphilis Antibodies Non-reactive
[2021-04-05 08:08] LABS: Chlamydia By Nucleic Acid AMP Negative (Negative)
[2021-04-05 12:09] LABS: Gonococcus By Nucleic Acid AMP Negative (Negative)
== END ==
PROVIDERS: PCP Internal Medicine; Visit Provider Obstetrics & Gynecology
DX: Z11.3 Encounter for screening for infections with a predominantly sexual mode of transmission (principal)
CPT/HCPCS: 36415; 86703; 86780; 86803; 87340; 87491; 87591

== ENCOUNTER 2021-04-23 16:00 | Emergency (ER) | payer MEDICAID, SELFPAY ==
[2021-04-11 13:03] VITALS: BMI 35.0
[2021-04-23 16:01] VITALS: BP 128/86; PULSE 92; RESP 16; TEMP 36.4; O2SAT 98; BMI 31.6
[2021-04-23 16:03] VITALS: BP 128/86; PULSE 92; RESP 16; TEMP 36.4; O2SAT 98
[2021-04-23 16:23] VITALS: O2SAT 97
--- NOTE | 2021-04-23 16:35 | RAD_ITS ---
HISTORY: Cough, chills EXAMINATION/TECHNIQUE: XR Chest 1 View: Portable upright AP chest x-ray COMPARISON: 10/27/19 FINDINGS: LINES/DEVICES: None. LUNGS: No consolidation, edema or effusion. No pneumothorax. MEDIASTINUM AND CARDIOVASCULAR STRUCTURES: Cardiac silhouette not enlarged. Central airways and mediastinal contour are unremarkable. BONES AND SOFT TISSUES: No acute bony abnormalities. RAD/Chest 1 View (Portable) IMPRESSION: No radiographic evidence of acute cardiopulmonary disease. at 1658 Reported and signed by: Tariq Lewis MD Electronically Signed: Tariq Lewis MD at 16:56 EDT Tel , Service support ,
--- NOTE | 2021-04-23 16:46 | EX.ED.DYSGE1 ---
HPI History of Present Illness Chief Complaint: Cough Informant: patient Narrative Narrative: Patient is a 21-year-old female with a past medical history of von Willebrand who presents to the emergency department for cough, chills, sore throat and rhinorrhea. Her symptoms have been present over the past 3 days. She denies known sick contacts. She has not been vaccinated for Covid. She denies any significant headache or neck pain/stiffness. She does not do thermometer at home to know if she is had a fever. She denies any significant shortness of breath or chest pain. She did have one episode of diarrhea yesterday but this since resolved. No vomiting. No rashes. She does smoke cigarettes occasionally. She has not been taking anything for her symptoms. [facility] Medical History Asthma Endometriosis History of pneumonia Insomnia Migraines Ovarian cyst Preventative health care Seasonal allergies Von Willebrand disease, type I Home Medications albuterol sulfate 2 puff INHALATION PRN PRN 01/13/19 [History Last Taken Unknown] aminocaproic acid 250 mg PO PRN PRN 01/13/19 [History Last Taken Unknown] cetirizine 10 mg PO 04/24/20 [History Last Taken Unknown] sumatriptan succinate 50 mg tablet See Rx Instructions PO .COMPLEX #9 tab 05/16/20 [Rx Last Taken Unknown] Allergy/AdvReac Type Severity Reaction Status Date / Time aspirin Allergy Other Verified 04/11/21 13:00 metoclopramide [From Reglan] Allergy [place] LIKE Verified 04/11/21 13:00 MY SKIN WAS CRAWLING montelukast sodium Allergy Other Verified 04/11/21 13:00 [From Singulair] NSAIDS (Non-Steroidal Allergy Other Verified 04/11/21 13:00 Anti-Inflamma Family History Mother Depression with anxiety Alcoholism Uncle Alcoholism Grandmother Alcoholism Depression with anxiety Grandfather Alcoholism Depression with anxiety Surgical History H/O laparoscopy Social History household members: none housing: apartment Smoking Status: Current some day smoker tobacco type: cigarettes alcohol intake: current alcohol intake frequency: holidays/special occasions only substance use type: does not use what type of physical activity do you participate in: walking frequency: daily ROS ROS ED Constitutional Constitutional ED: Reports chills; Denies fever(s) Eyes Eyes: Denies change in vision ENT ENT ED: Reports rhinorrhea and sore throat; Denies epistaxis Cardiovascular Cardiovascular: Denies chest pain or palpitations Respiratory/Chest Respiratory/Chest: Reports cough; Denies dyspnea or sputum Gastrointestinal Gastrointestinal: Denies abdominal pain, diarrhea, nausea or vomiting Genitourinary Genitourinary ED: Denies dysuria, hematuria or urinary frequency Musculoskeletal Musculoskeletal: Denies back pain or neck pain Integumentary Denies rash Neurologic Neurologic: Denies dizziness, headache(s) or weakness EXAM Physical Exam Const Vital Signs: 04/23/21 16:01 04/23/21 16:03 04/23/21 16:23 Temperature 97.6 F L 97.6 F L Temperature Source Temporal Temporal Pulse Rate 92 92 Respiratory Rate 16 16 Respiratory Effort Normal Non-Labored Respiratory Depth Normal Respiratory Pattern Normal Blood Pressure 128/86 H 128/86 H Blood Pressure Mean 100 100 Pulse Ox 98 98 Oxygen Delivery Method Room Air Room Air Room Air Positive well nourished and well developed General Appearance ED: well developed and NAD HEENT Reports normocephalic and head/scalp atraumatic Eyes PERRL and EOMs intact bilaterally Neck supple General: Negative for tenderness Chest Wall inspection of chest normal Resp normal respiratory effort and clear to auscultation bilaterally Auscultation: Negative for rales, rhonchi or wheezes Cardio regular rate, regular rhythm and no murmurs GI normal to inspection, nondistended, normoactive bowel sounds and non-tender Palpation: soft Back/Spine no CVA tenderness Extremity normal to inspection General Extremety ED: Negative for edema or tenderness General Extremity: Negative for edema Neuro Sensorium / Orientation: alert Motor Exam: strength 5/5 throughout Psych mental status grossly normal Skin no rashes or lesions noted MDM MDM MDM Narrative Medical decision making narrative: Patient presents the ED for cough, chills, sore throat and rhinorrhea. On arrival to the emergency department she is satting 98% on room air. She is afebrile. She is in no acute distress. Will check Covid swab as well as chest x-ray. Patient's chest x-ray did not reveal any acute cardiopulmonary abnormality. Covid swab was negative. At this time will recommend symptomatic treatment for most likely viral URI. 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 She is to follow-up with her PCP. If she notes any significant shortness of breath, chest pain she needs to return back to the emergency department for reevaluation. She understands and is agreeable this plan. Discharged home in stable condition. All questions were answered. Radiography Diagnostic Testing: Radiology Impression Chest X-Ray 04/23/21 16:35 IMPRESSION: No radiographic evidence of acute cardiopulmonary disease. at 1658 Reported and signed by: Tariq Lewis MD Electronically Signed: Tariq Lewis MD at 16:56 EDT Tel , Service support , Discharge Plan Triage Chief Complaint: Cough ED Provider: Andrae Prado Dx/Rx/DC Orders Clinical Impression: URI (upper respiratory infection), Cough Instructions: ED URI, Viral, No Abx (Adult) Prescriptions: No Action sumatriptan succinate 50 mg tablet See Rx Instructions PO .COMPLEX Qty: 9 RF: 2 aminocaproic acid 250 MG/ML solution 250 mg PO PRN PRN (Reason: Bleeding) RF: 0 albuterol sulfate 108 HFA aerosol inhaler 2 puff inhalation PRN PRN (Reason: Wheezing) RF: 0 cetirizine 10 MG tablet 10 mg PO RF: 0 Primary Care Provider: Veronika Loredo Referrals: Veronika Loredo MD [Primary Care Provider] - 1 Week if not improving Disposition Disposition: Home, Self Care Discharge Date/Time: 04/23/21 17:13
== END 2021-04-23 17:13 | disposition home or self-care (01) ==
PROVIDERS: Emergency Provider Emergency Medicine; PCP Internal Medicine
DX: J06.9 Acute upper respiratory infection, unspecified (principal); R05 Cough; F17.210 Nicotine dependence, cigarettes, uncomplicated; D68.0 Von Willebrand disease; Z87.01 Personal history of pneumonia (recurrent); J45.909 Unspecified asthma, uncomplicated; G47.00 Insomnia, unspecified; Z79.1 Long term (current) use of non-steroidal anti-inflammatories (NSAID)
CPT/HCPCS: 71045; 87426; 99282

== ENCOUNTER → 2021-06-28 15:58 | Outpatient (CLI) | payer MEDICAID, SELFPAY ==
[2021-07-02 22:06] LABS: Chlamydia By Nucleic Acid AMP Positive (Negative)
[2021-07-02 22:10] LABS: Gonococcus By Nucleic Acid AMP Negative (Negative)
== END ==
PROVIDERS: PCP Internal Medicine; Visit Provider Obstetrics & Gynecology
DX: Z11.3 Encounter for screening for infections with a predominantly sexual mode of transmission (principal)
CPT/HCPCS: 87491; 87591

== ENCOUNTER → 2021-07-24 12:55 | Outpatient (CLI) | payer MEDICAID, SELFPAY ==
--- NOTE | 2021-07-24 14:07 | MRI_ITS ---
History: Endometriosis MRI pelvis with and without contrast: Technique: Multiplanar T1 and T2 MR sequences of the pelvis obtained with and without intravenous administration of 18 cc of of REM and with fat suppression technique. Vaginal gel placed as well. Findings: No abnormal T1 signal intensity noted to suggest focal endometrioma.. No abnormal contrast enhancement. Small amount of free fluid noted within the cul-de-sac. Ovaries are normal in size and signal intensity. Right ovary measures 3.2 x 1.9 cm. Left ovary measures 2.7 x 1.4 cm. Multiple follicular cysts are present bilaterally largest one measuring 1 cm within the left ovary. Uterus is normal size measuring 7.5 cm in length. Endometrial thickness is 6 mm. Contour of the vaginal cavity is normal. No bowel abnormality. Urinary bladder is normal. No retroperitoneal lymphadenopathy. Normal vascular flow voids are noted. IMPRESSION: No evidence of endometriosis. Physiological amount of free fluid within the cul-de-sac. at 0914 Reported and signed by: Bob Acevedo MD Electronically Signed: Bob Acevedo MD at 9:13 EST Tel , Service support , MRI/Pelvis W/WO Contrast
== END ==
PROVIDERS: PCP Internal Medicine; Visit Provider Obstetrics & Gynecology
DX: N80.9 Endometriosis, unspecified (principal)
CPT/HCPCS: 72197; A9575

== ENCOUNTER 2021-07-26 18:19 | Observation (INO) | payer MEDICAID, SELFPAY ==
[2021-07-26] VITALS (17 sets, daily range): BP systolic 107–133; BP diastolic 58–81; PULSE 68–103; RESP 16–18; TEMP 36.5–37; O2SAT 93–100; BMI 31.7
--- NOTE | 2021-07-26 07:44 | HP.PCM.OB_ITS ---
History and Physical Date of Admission: 07/26/21 Date: 07/20/2021 Name: KEIRA GARCIA Age: 21 Date of : 2000 HISTORY OF PRESENT ILLNESS: On 07/20/2021, Keira Garcia, a 21 year old female 0 0 0 0 0, presented for: -- Pre-Op -- Keira is here today for her preop appointment. Patient is scheduled for laproscopic treatment of endometriosis 07/26/21. Patient has not had phone call PAT with [facility] but will follow up as she is needing to return call to them. Consent reviewed with patient and will sign on her way out today. Patient to have labs and get body wash on her way out this afternoon at [facility] lab. Patient's medication list updated and no needs at this time. jlb as above. Keira has hx chronic pelvic pain and endometriosis. She has laparoscopic excision 08/2017 and 06/2019 with approximately 1 year of pain relief after each surgery. Her most recent recurrence is refractory to pelvic floor therapy and abdominal (?myofascial) injections received at [facility]. She had a pelvic MRI scheduled to verify if appropriate to proceed with surgery at [facility] versus [facility]. She notes however that MRI is not scheduled until 08/01/21. shm -- STD screen which began with friend relating she got Chlamydia from Keira's current partner. Keira claims it started this week and has been present several days. It is located in the cervix. Severity is asymptomatic. An associated sign and symptom is none. ALLERGIES: Singulair, Numbness, NSAIDS, Bleeding (non-specific), Reglan, Skin irritation, Aspirin and Gastritis MEDICATIONS HISTORY: Current medications prescribed by our practice are: 1. azithromycin 1 gram oral packet, 1 PO one packet 2. azithromycin 500 mg tablet, two tabs once Patient is also takin. Amicar 250 mg/mL (25 %) oral solution, As Directed 2. Stimate 150 mcg/spray (0.1 mL) nasal spray, As Directed 3. albuterol sulfate 0.63 mg/3 mL solution for nebulization REVIEW OF SYSTEMS: GENERAL - Denies fever, or chills SKIN - Denies skin changes EYES - wears eye glasses EARS - Denies difficulty hearing NOSE - Denies nasal congestion or bleeding MOUTH - Denies sore throat or difficulty swallowing NECK - Denies pain or swelling RESPIRATORY - Denies shortness of breath or wheezing CARDIOVASCULAR - Denies palpitations or chest pain GASTROINTESTINAL - Denies nausea, vomiting, diarrhea, constipation GENITOURINARY - Denies dysuria, frequency of urination, incontinence of urine MUSCULOSKELETAL - Denies joint or muscle pain NEUROLOGICAL - Denies localized numbness or weakness PSYCHIATRIC - Denies depression or anxiety ENDOCRINE - Denies heat or cold intolerance, weight loss or gain HEMATO-IMMUNOLOGIC - Denies excesive bleeding with cuts PAST HISTORY: Breast/Ovarian/Colon Cancers - Aunt had Ovarian Cancer Infections - Chicken pox Illnesses - psychosis, mood disorder, asthma, Von Willebrand Accidents - None History of Abnormal PAPS - Denies Hospitalizations - pneumonia as a child immunodepressed - freq viral/bacterial infections; SURGICAL HISTORY: 1. 08/21/2017 exploratory lap treatment of endometriosis 2. 07/01/2019 operative laparoscopy, excision of pelvic endometriosis Talia Osuna MD MENSTRUAL HISTORY: LMP Known?- DefiniteAmount/Duration - 3-4 days, Regularity - irregular, Frequency - monthly days, Prior Menses - 10/16/2016, LMP - 07/13/21, Age Onset Menarche - 9 PAST PREGNANCIES: Total Pregnancies - 0; Full Term Pregnancies - 0; Premature - 0; Abortions, Induced - 0; Abortions, Spontaneous - 0; Ectopics - 0; Multiple Births - 0; Living Children - 0 FAMILY HISTORY (OLD): FAMILY HISTORY: Mother - FH: Endometriosis; Aunt - Ovarian Carcinoma; Uncle - Type 2 Diabetes; SOCIAL HISTORY: Alcohol Use - drinks occasionally and 1 per month Smoking - occasional--advised to quit Diet - no special diet Lifestyle - moderate stress lifestyle Exercise - regular Seat Belt Use - always Employer - [employer] Job Description - [employer] Illicit Drug Use - denies use of street drugs Sexual Activity - sexually active Residence - rents an apartment and lives alone Place of - [place] Hours Worked - 40 hours per week Control - condoms PHYSICAL EXAMINATION BP- 122/82 Sitting, Right arm, regular cuff Temp- 98.4 Taken Orally Weight- 206.0 lbs Height- 65.0 inch BMI:34.28 CONSTITUTIONAL - NAD, well nourished, and well developed SKIN - No rash, lesions, or ulcers HEENT - normocephalic, atraumatic, sclerae anicteric LUNGS - normal respiratory rate and rhythm NEUROLOGICAL - normal gait, normal balance, normal motor PSYCHIATRIC - A and O to time, place, person, mood and affect ASSESSMENT: PLAN BY DIAGNOSIS: 1. Endometriosis, Unspecified, Lower Abdominal Pain, Unspecified and Pelvic And Perineal Pain Known hx endometriosis - s/p laparoscopy x 2 with recurrence of painfulness refractory to pelvic floor therapy Reviewed with patient procedural consents, r/b/i/a discussed Consents signed and reviewed hx vWD. Will need to do 4 pump Stimate prime then 1 pump in each nostril to limit bleeding risk and plan fluid restriction intraop per prior Hematology preop consultation.
[2021-07-26] MEDS: Bupivacaine Mpf 0.5% 30 ML VIAL (08:17)
[2021-07-26] MEDS: Lactated Ringers 1,000 ML 15 ML IV (08:33)
[2021-07-26 08:39] LABS: Hematocrit 39.4 % (37-47); Hemoglobin 13.3 g/dL (12.0-15.0); Mean Corp Hgb Conc 33.8 g/dL (32-36); Mean Corpuscular Hgb 31.1 pg (27.0-32.0); Mean Corpuscular Volume 92.3 fL (81-99); Mean Platelet Vol. 10.1 fl (6.2-12.0); Platelet Count 275 K/mm3 (150-450); RBC Distribution Width CV 11.9 % (11.6-14.6); RBC Distribution Width SD 39.8 fl (35.1-43.9); Red Blood Count 4.27 M/mm3 (4.2-5.4)
[2021-07-26 08:56] LABS: Internal QC Validated? YES +Cl - CLEAR BKGD; Pregnancy, Serum, hCG Quali. NEGATIVE Negative
--- NOTE | 2021-07-26 09:00 | EMB_PTH ---
PATIENT: KEIRA GUARDADO LOC: MS2 U#:[id number] AGE/SX: 21/F ROOM: [facility] [place] RE07/26/[address]: Dr. Talia Osuna MD : 2000 BED: 1 DIS: 07/27/2021 SPEC #: [id number] RECD: 07/26/21 13:46 STATUS: JORGE REQ #: [id number] LASHAUN: 07/26/21 09:[address]: Talia Le DEPT: SURGICAL PATHOLOGY RECD BY: Jerilyn Cai ENTERED: 07/27/21 10:51 SP TYPE: ENDOM BX/C DANIELLE DR: Dr. Veronika Loredo MD Tissues: A - Endometrium, NOS B - Perineum, NOS Procedures: Surgery Specimen Level IV HEADER OPERATION: Diagnostic laparoscopy surgical treatment, endometriosis PRE-OP DIAGNOSIS: History of endometriosis, pelvic pain TISSUE SUBMITTED: A ? Right uterosacral endometriosis, B ? Posterior cul-de-sac peritoneum MICROSCOPIC DIAGNOSIS A. Right uterosacral endometriosis, biopsy: Chronic inflammation and histiocytic infiltration. Negative for endometriosis. See comment. B. Posterior cul-de-sac peritoneum, biopsy: Histiocytic infiltration. Negative for endometriosis. See comment. SJ:rg 07/30/2021 COMMENT A & B. The findings may represent therapy-related changes. Clinical correlation and appropriate follow up are necessary. Case has been reviewed in consultation with Dr. Singh who concurs with the above diagnosis. IDC:AM MICROSCOPIC DESCRIPTION Slides are reviewed. GROSS DESCRIPTION A - Received in fixative is one container labeled with the patient's name and designated right ureteral endometriosis. The specimen consists of a single irregular fragment of dark jordan soft tissue measuring 0.7 x 0.6 x 0.3 cm. The specimen is totally submitted in one cassette. B - Received in fixative is one container labeled with the patient's name and designated posterior cul-de-sac peritoneum. The specimen consists of a single irregular fragment of jordan tissue measuring 0.3 x 0.2 x 0.1 cm. The specimen is totally submitted in one cassette. / AM:cesar 07/27/21 TC:3 CPT: 64094 x2
[2021-07-26 09:11] LABS: AST(SGOT) 15 U/L (15-37); Alanine Aminotransfer ALT/SGPT 19 U/L (13-56); Alkaline Phosphatase 90 U/L (45-117); Bilirubin, Direct 0.13 mg/dL (0.00-0.30); Globulin 3.6 g/dL (2.2-4.2); Protein, Total 7.6 g/dL (6.4-8.2)
[2021-07-26 09:33] LABS: International Normalized Ratio 1.1; Prothrombin Time (Protime)PT. 13.1 SECONDS (11.7-14.9)
[2021-07-26 09:34] LABS: Partial Thromboplast Time 23.5 Seconds (24.1-36.2)
[2021-07-26] MEDS: Lactated Ringers 1,000 ML 100 ML IV ×2 (11:01→12:46)
--- NOTE | 2021-07-26 13:05 | OP.PCM_ITS ---
Problems Associated Problem List Diagnoses (1) Endometriosis of pelvic peritoneum: (2) Chronic female pelvic pain: Report of Operation Date of Procedure: 07/26/21 Pre-Operative Diagnosis: 1. Chronic pelvic pain 2. Endometriosis Post-Operative Diagnosis: 1. Chronic pelvic pain 2. Endometriosis Surgery/Procedure Performed:: 1. Diagnostic laparoscopy 2. Surgical treatment of endometriosis 3. Ureterolysis 4. Interceed placement Description of Surgical Findings:: Right uterosacral endometriosis and right ovarian fossa endometriosis. Surgeon: Talia Le web solutions architect: Thao Zamorano Type of Anesthesia: General and Local Anesthesiologist: Octavio Roberts Specimen's removed: 1. Right uterosacral endometriosis, 2. Right ovarian fossa endometriosis Estimated Blood Loss (mL): 15 Fluids Replaced: 2000 ml Description of Procedure: Indications: 21-year-old nulligravida with a history of chronic pelvic pain and laparoscopy confirmed endometriosis presents for scheduled diagnostic laparoscopy and surgical treatment of endometriosis. She previously had received 2 prior laparoscopies with interval relief of pain for 1 year. Pain again recurred and was refractory to pelvic floor therapy and myofascial injection. Patient was counseled regarding management options and opted to proceed with laparoscopic treatment of endometriosis. Procedural ris ks, benefits, indications and alternatives were reviewed at length and patient desired to proceed. Procedure: The patient was brought to the operating room and spinal was performed. She is placed in the dorsal supine position and induced under general anesthesia and intubated. She was repositioned into dorsal lithotomy and the arms were tucked at her sides. The abdomen and perineum were prepped and draped in sterile fashion. A speculum was placed vaginally and cervix grasped the anterior cervical lip using a single-tooth tenaculum and the uterus sounded to 7 cm. A ZUMI uterine manipulator was placed and secured. A Calles catheter was placed into the bladder. The tenaculum was removed from the cervix and speculum removed from the vagina. The patient was placed into low lithotomy attention turned to the abdomen. An inferior umbilicus incision was made using a scalpel. A varies needle was placed with successful hanging drop test and no aspirate. The abdomen was insufflated to 15 mmHg. The Veress needle was removed and a 5 mm port was placed under laparoscopic guidance confirming entry into the abdominal cavity. The abdomen and pelvis were inspected and there was an area of right peritoneal endometriosis in the ovarian fossa as well as the right uterine sacral ligament. Right and left lower quadrant incisions were made under transillumination following tap block with half percent Marcaine at the sites. 5 mm ports were placed at each of the sites. A fourth 5 mm port was placed suprapubically. The right ureter course was observed from the pelvic brim to the ovarian fossa just lateral to the uterosacral ligament. I grasped the peritoneum lateral to the ureter and incised this using monopolar L-hook. The peritoneum was bluntly and sharply dissected from the ureter and underlying alveolar tissue moving towards the uterosacral ligament. It appeared the large brown endometrial implant at the uterosacral ligament was just adjacent to the tortuous uterine artery. Ureterolysis was performed as well as dissection around the uterine artery to further mobilize this endometrial nodule. The endometrial nodule and surrounding peritoneum were excised. In similar fashion a second, white-colored nodule was also excised. Bleeding that occurred was controlled using monopolar electrocoagulation. The ureter peristalsis was seen following excision of the peritoneal endometriosis. The surgical site was irrigated and suctioned. Ady was placed over the excisional bed for small capillary oozing with good hemostasis. The peritoneum was reapproximated using 3 oh V-Loc suture. Interceed was placed at this site. The procedure was complete. The abdomen was desufflated and the ports removed. The skin was closed using 4-0 Monocryl by the MEDICAL LEAD under my supervision. Steri- Strips and OpSite dressing were placed over each of the incisions. Attention was returned to the perineum and the uterine manipulator was removed as was a Calles catheter. The prior cervical tenaculum site was hemostatic. The patient was awakened, extubated and transferred to the recovery room without complication. Complications None Admit VTE Documentation VTE Present on Admission: No VTE Mechan Device Prophylaxis: SCD's VTE Pharm Prophylaxis ordered?: No
--- NOTE | 2021-07-26 13:18 | PCM.DC ---
Discharge Instructions Diet Discharge Diet: No restrictions Activity Discharge Activity: Return to Normal Activity May resume sexual activity in: 4 weeks Lifting Restrictions: 10 lb Dressing / Incision Call your doctor if your incision/area has: Continuous Slow Oozing, Sudden Increased Bleeding, Increased Pain/ Swelling, Increased Redness, Foul Smelling Discharge and Swelling at the incision site Call your doctor if you observe: Fever of 101 or Higher, Inability to urinate, Inability to have a bowel movement, Shortness of breath, Chest pain, Calf discomfort and Uncontrolled pain Remove Dressing in: 1 day Cleanse incision/area with: Soap & Water Follow Up Care Please Follow Up With: Talia Le MD When: 2 weeks Test Results: Test results from this visit will be discussed in further detail at your follow-up appointment, if applicable. Discharge Plan Admission Primary Reason for Your Visit: Endometriosis Excision Attending Provider: Talia Le Primary Care Provider: Veronika Loredo Instructions Patient Instructions: Endometriosis Lap Tx Dc Discharge Orders/Prescriptions Prescriptions: New hydrocodone-acetaminophen 5-325 mg Tablet 1 tab PO Q6H PRN PRN (Reason: severe pain (scale score 7-10)) 7 Days Qty: 20 RF: 0 Continued albuterol sulfate 108 HFA aerosol inhaler 2 puff inhalation PRN PRN (Reason: Wheezing) RF: 0 cetirizine [Zyrtec] 10 MG tablet 10 mg PO DAILY PRN (Reason: ALLERGIES) RF: 0 sumatriptan succinate [Imitrex] 50 mg tablet See Rx Instructions PO .COMPLEX RF: 0 desmopressin 150 mcg/spray (0.1 mL) [place],Non-Aerosol 4 spray INTRANASAL DAILY PRN PRN (Reason: PreOp blood clotting) RF: 0 Referrals / Follow Up: Veronika Loredo MD [Primary Care Provider] - Disposition Disposition (needs filled in before D/C Order can be placed): Home, Self Care
[2021-07-26] MEDS: HYDROcodone Bitartrate/Apap 5/325 Tablet PO (15:45)
[2021-07-26] MEDS: Gabapentin 300 MG Capsule PO (17:10)
[2021-07-26] MEDS: morphine 10 MG/ML Syringe IM (17:10)
--- NOTE | 2021-07-26 18:48 | PCS.PANDOC ---
PANDEMIC DOCUMENTATION INITIATED: Date: 04/23/2021 Time: 190
[2021-07-26] MEDS: Ondansetron ODT 4 MG Tablet PO (19:46)
[2021-07-26] MEDS: Docusate Sodium 100 MG Capsule PO (21:27)
[2021-07-26] MEDS: oxyCODONE 5 MG Tablet PO (21:27)
[2021-07-26] MEDS: Acetaminophen 500 MG Tablet 1000 MG PO (23:05)
[2021-07-27 03:00] VITALS: PULSE 82
[2021-07-27 04:15] VITALS: BP 106/67; PULSE 97; RESP 18; TEMP 36.5; O2SAT 97
[2021-07-27] MEDS: oxyCODONE 5 MG Tablet PO ×2 (04:26→08:30)
[2021-07-27] MEDS: Acetaminophen 500 MG Tablet 1000 MG PO (06:16)
[2021-07-27 07:25] VITALS: O2SAT 97
[2021-07-27] MEDS: Ondansetron ODT 4 MG Tablet PO (08:30)
[2021-07-27] MEDS: Docusate Sodium 100 MG Capsule PO (08:32)
[2021-07-27 08:37] VITALS: PULSE 94
[2021-07-27 08:38] VITALS: BP 98/53; PULSE 85; RESP 16; TEMP 36.7; O2SAT 97
--- NOTE | 2021-07-27 08:47 | PCM.PN.OB ---
Subjective Subjective No issues overnight. Nausea improved, denies vomiting. Does feel dizziness also improved. OOB and ambulating, voiding without difficulty. Passing flatus. Tolerates a regular diet. Objective Data Objective Data Vital Signs: Vital Signs Temp Pulse Resp BP Pulse Ox 98.1 F 85 16 98/53 L 97 07/27/21 08:38 07/27/21 08:38 07/27/21 08:38 07/27/21 08:38 07/27/21 08:38 Oxygen Delivery Method Room Air Weight: 92 kg Body Mass Index (BMI) 31.7 Intake & Output: Intake and Output for Last 24 Hours 07/25/21 07/26/21 07/27/21 23:59 23:59 23:59 Intake Total 3000 / 3000 700 / 700 Output Total 50 / 50 600 / 600 Balance 2950 / 2950 100 / 100 Lab / Micro Data Result Diagrams: 07/26/21 07:55 Labs: Laboratory Results - last 24 hr 07/26/21 07:55: PT Cancelled, INR Cancelled, APTT Cancelled 07/26/21 07:55: Total Bilirubin 0.50, Direct Bilirubin 0.13, AST 15, ALT 19, Alkaline Phosphatase 90, Total Protein 7.6, Albumin 4.0, Globulin 3.6 07/26/21 07:55: Blood Type Cancelled, A1 Antigen Typing Cancelled, Rho(D) Type Cancelled, Antibody Screen Cancelled 07/26/21 07:55: Serum , Qual NEGATIVE 07/26/21 09:15: PT 13.1, INR 1.1, APTT 23.5 L 07/26/21 09:15: Blood Type O POSITIVE, Antibody Screen NEGATIVE Micro: Microbiology 07/25/21 09:00 Interface Orders SARS-CoV-2 Antigen (Rapid) - Final Physical Exam Narrative GEN - NAD, AAO x 3 CV - RRR PULM - CTAB ABD - soft, nontender, nondistended with incisional dressings c/d/i EXT - no calf tenderness Assessment & Plan (1) Endometriosis of pelvic peritoneum: PLAN: POD#1 s/p laparoscopic treatment of endometriosis Routine postop care D/C home today
== END 2021-07-27 09:48 | disposition home or self-care (01) ==
LOC: SDC 20:04 → MS2 07-27 07:12
PROVIDERS: Anesthesiology; Admitting Provider Obstetrics & Gynecology; PCP Internal Medicine; Referring Provider Obstetrics & Gynecology; Visit Provider Obstetrics & Gynecology
PROC: (CPT 49320; principal; 2021-07-26 08:45)
DX: N80.3 Endometriosis of pelvic peritoneum (principal); F17.200 Nicotine dependence, unspecified, uncomplicated; D68.0 Von Willebrand disease; J45.909 Unspecified asthma, uncomplicated; Z79.899 Other long term (current) drug therapy
CPT/HCPCS: 58662; 80076; 84703; 85027; 85610; 85730; 86850; 86900; 86901; 87426; 88305; 99218; 99251; C9803; J7120; G0378; G0463; J2405

== ENCOUNTER 2021-12-09 13:38 | Emergency (ER) | payer MEDICAID, SELFPAY ==
[2021-12-09 13:39] VITALS: BP 137/108; PULSE 79; RESP 16; TEMP 36.2; O2SAT 99; BMI 32.5
--- NOTE | 2021-12-09 13:47 | EDS_ITS ---
HPI History of Present Illness Chief Complaint: Dental Detail of Chief Complaint: Dental pain that started today on waking Informant: patient Narrative Narrative: Patient presents with right-sided upper and lower dental pain that started when she woke up. She denies any trauma. She denies fevers or chills or sweats. Patient states that she has a broken tooth on the left side but that is not bothering her. She has an appointment to see dentist in January. Patient [place] any fevers or chills or sweats. Prior similar symptoms: No PFSH PFSH Medical History (Updated 12/09/21 @ 13:[address] Fam White, DO) Alcohol use Anxiety Asthma Back pain Depression Endometriosis Gastric reflux History of pain when walking History of pneumonia Insomnia Marijuana use Migraines Ovarian cyst Preventative health care Seasonal allergies Smoker Syncope Von Willebrand disease, type I Wears glasses Home Medications albuterol sulfate 2 puff INHALATION PRN PRN 01/13/19 [History Last Taken Unknown] cetirizine [Zyrtec] 10 mg PO DAILY PRN 04/24/20 [History Last Taken Unknown] desmopressin 4 spray INTRANASAL DAILY PRN PRN 07/26/21 [History Last Taken 07/26/21 06:30] hydrocodone-acetaminophen 1 tab PO Q6H PRN PRN 7 Days #20 tab 07/26/21 [Rx Last Taken Unknown] sumatriptan succinate [Imitrex] See Rx Instructions PO .COMPLEX 07/26/21 [History Last Taken Unknown] gabapentin 300 mg PO BID #10 cap 07/27/21 [Rx Last Taken Unknown] ondansetron 4 mg PO Q6H PRN PRN #15 tab 07/27/21 [Rx Last Taken Unknown] clindamycin HCl [Cleocin HCl] 300 mg PO Q6H #40 capsule 12/09/21 [Rx Last Taken Unknown] hydrocodone-acetaminophen 1 tab PO Q4H PRN PRN 2 Days #10 tablet 12/09/21 [Rx Last Taken Unknown] Allergy/AdvReac Type Severity Reaction Status Date / Time aspirin Allergy d.t Verified 12/09/21 13:40 bleeding disorder metoclopramide [From Reglan] Allergy CARLTON LIKE Verified 12/09/21 13:40 MY SKIN WAS CRAWLING montelukast sodium Allergy cant feel Verified 12/09/21 13:40 [From Singulair] my legs NSAIDS (Non-Steroidal Allergy d/t Verified 12/09/21 13:40 Anti-Inflamma bleeding disorder Family History Mother Depression with anxiety Alcoholism Uncle Alcoholism Grandmother Alcoholism Depression with anxiety Grandfather Alcoholism Depression with anxiety Surgical History (Updated 07/23/21 @ 12:16 by Tami Giles) H/O laparoscopy Social History household members: none housing: apartment Smoking Status: Current some day smoker tobacco type: cigarettes alcohol intake: current alcohol intake frequency: holidays/special occasions only substance use type: does not use what type of physical activity do you participate in: walking frequency: daily ROS ROS ED Constitutional Constitutional ED: Reports systems reviewed and no addt'l complaints, except as documented; Denies body ache(s), change in weight or chills Eyes Eyes: Denies acute decrease in peripheral vision, change in vision, double vision or loss of vision ENT ENT ED: Reports none and other Details: Dental pain ; Denies ear pain, lip swelling, loss taste/smell, neck pain, otalgia or sore throat Cardiovascular Cardiovascular: Reports none; Denies abdominal pain, chest pain with activity, leg edema, lightheadedness, palpitations, rapid heart rate or syncope Respiratory/Chest Respiratory/Chest: Reports none; Denies change in mental status, dry cough, dyspnea, hemoptysis, shortness of breath at rest or shortness of breath with exertion Gastrointestinal Gastrointestinal: Reports none; Denies abdominal pain, change in stool character, diarrhea, hematemesis, hematochezia, melena, rectal bleeding or vomiting Genitourinary Genitourinary ED: Reports none; Denies abdominal discomfort, anuria, dysuria, genital pain or polyuria Musculoskeletal Musculoskeletal: Reports none; Denies arthralgias, back pain, difficulty walking, extremity pain, muscle weakness or myalgias Integumentary Reports none; Denies abscess or rash Neurologic Neurologic: Reports none; Denies abnormal gait, confusion, focal weakness, frequent falls, headache(s), loss of vision, numbness, paresthesias, radicular pain, vertigo or weakness Psychiatric Psychiatric: Reports systems reviewed and no addt'l complaints, except as documented and none; Denies behavioral changes, confusion, difficulty concentrating, hallucinations, suicidal ideation, tactile hallucinations or visual hallucinations Endocrine Endocrinology: Denies none, cold intolerance, excessive sweating, fatigue or heat intolerance Hematologic/Lymphatic Hematologic/Lymphatic: Reports none; Denies anemia, easy bleeding or easy br uising Allergic/Immunologic Allergic/Immunologic ED: Denies as per HPI, none, lip swelling, mouth swelling, throat swelling, tongue swelling or hives EXAM Physical Exam Const Vital Signs: 12/09/21 13:39 Temperature 97.2 F L Temperature Source Temporal Pulse Rate 79 Respiratory Rate 16 Blood Pressure 137/108 H Blood Pressure Mean 117 Pulse Ox 99 Oxygen Delivery Method Room Air Positive well nourished and well developed General Appearance ED: well developed and NAD HEENT Reports TM's clear and moist mucous membranes HEENT Narrative: Dentition-patient has a broken right upper molar #2 that is tender to palpation. No gingival erythema or abscess noted. She has no facial erythema or cellulitis. Evaluation of the lower teeth does not reveal any tenderness on palpation or abscess. No lymphadenopathy noted. normocephalic and atraumatic; Negative for trauma or tenderness Tympanic Membrane ED: Yes TM's clear Eyes PERRL and EOMs intact bilaterally General Eye ED: Negative for pale conjunctiva or scleral icterus Neck no lymphadenopathy, supple and no JVD General: Negative for tenderness Chest Wall inspection of chest normal and palpation of chest normal Chest: Negative for tenderness Resp normal respiratory effort and clear to auscultation bilaterally Effort and Inspection: Negative for respiratory distress or pain with movement Auscultation: Negative for rhonchi, wheezes or diminished lung sounds Cardio regular rate, regular rhythm, S1 normal heart sound, S2 normal heart sound and no murmurs Peripheral Pulses: pulses 2+ throughout GI normal to inspection, nondistended, normoactive bowel sounds, soft to palpation, non-tender, non-distended and no masses Back/Spine no CVA tenderness and no thoracic nor lumbar tenderness Extremity normal to inspection General Extremety ED: Negative for edema General Extremity: Negative for edema Neuro oriented x3, CN's II-XII intact bilaterally, no sensory deficits noted and gait normal Sensorium / Orientation: awake, alert, oriented to person, oriented to place and oriented to time Motor Exam: strength 5/5 throughout and strength abnormal Psych mental status grossly normal Skin no rashes or lesions noted and no wounds MDM MDM MDM Narrative Medical decision making narrative: Patient with dental pain. I will give her a prescription for clindamycin and [place] for pain. Patient cannot have NSAIDs due to her von Willebrand's disease. Patient advised to follow-up with a dentist. Discharge Plan Triage Chief Complaint: Dental ED Provider: Fam White Dx/Rx/DC Orders Clinical Impression: Pain, dental Instructions: ED Dental Pain Prescriptions: New clindamycin HCl [Cleocin HCl] 300 MG capsule 300 mg PO Q6H Qty: 40 RF: 0 hydrocodone-acetaminophen [hydrocodone-acetaminophen] 1 TABLET tablet 1 tab PO Q4H PRN PRN (Reason: Pain) 2 Days Qty: 10 RF: 0 No Action albuterol sulfate 108 HFA aerosol inhaler 2 puff inhalation PRN PRN (Reason: Wheezing) RF: 0 cetirizine [Zyrtec] 10 MG tablet 10 mg PO DAILY PRN (Reason: ALLERGIES) RF: 0 sumatriptan succinate [Imitrex] 50 mg tablet See Rx Instructions PO .COMPLEX RF: 0 desmopressin 150 mcg/spray (0.1 mL) [place],Non-Aerosol 4 spray INTRANASAL DAILY PRN PRN (Reason: PreOp blood clotting) RF: 0 hydrocodone-acetaminophen 5-325 mg Tablet 1 tab PO Q6H PRN PRN (Reason: severe pain (scale score 7-10)) 7 Days Qty: 20 RF: 0 ondansetron 4 mg Tablet,Disintegrating 4 mg PO Q6H PRN PRN (Reason: NAUSEA) Qty: 15 RF: 0 gabapentin 300 mg capsule 300 mg PO BID Qty: 10 RF: 0 Primary Care Provider: Veronika Loredo Referrals: Veronika Loredo MD [Primary Care Provider] - Activity Restrictions/Additional Instructions: see a dentist Disposition Disposition: Home, Self Care
== END 2021-12-09 14:05 | disposition home or self-care (01) ==
LOC: ED 13:58
PROVIDERS: Emergency Provider Emergency Medicine; PCP Internal Medicine; Visit Provider Emergency Medicine
DX: K08.89 Other specified disorders of teeth and supporting structures (principal); D68.0 Von Willebrand disease; F17.210 Nicotine dependence, cigarettes, uncomplicated
CPT/HCPCS: 99282

== ENCOUNTER → 2022-05-06 | Outpatient (CLI) | payer MEDICAID, SELFPAY ==
[2022-05-06 17:03] LABS: ALB/GLOB Ratio 1.1 RATIO (0.9-2.4); AST(SGOT) 15 U/L (15-37); Alanine Aminotransfer ALT/SGPT 20 U/L (13-56); Albumin, Serum 3.9 g/dL (3.2-5.0); Alkaline Phosphatase 84 U/L (45-117); Anion Gap 8 (5-15); BUN 12 mg/dL (7-18); Calcium,Total 8.9 mg/dL (8.5-10.1); Chloride 107 mmol/L (98-107); Creatinine, Serum 0.75 mg/dL (0.55-1.02); EST Glomerular Filtration Rate 102 mL/min (>60); Est Glom Filt Rate - Afr Amer 123 mL/min (>60); Globulin 3.7 g/dL (2.2-4.2); Glucose 94 mg/dL (74-106); Potassium 4.3 mmol/L (3.5-5.1); Protein, Total 7.6 g/dL (6.4-8.2); Sodium Level 140 mmol/L (136-145); T4 Free Direct 1.14 ng/dL (0.76-1.46); Thyroid Stim Hormone (TSH) 0.54 uIU/mL (0.358-3.74)
== END | disposition home or self-care (01) ==
LOC: BIMLAB 14:49
PROVIDERS: PCP Internal Medicine; Referring Provider Internal Medicine; Visit Provider Internal Medicine
DX: F41.9 Anxiety disorder, unspecified (principal); F32.A Depression, unspecified
CPT/HCPCS: 36415; 80053; 84439; 84443

== ENCOUNTER 2022-12-28 08:28 | Emergency (ER) | payer MEDICAID, SELFPAY ==
[2022-12-28 08:30] VITALS: BP 135/69; PULSE 105; RESP 16; TEMP 36.7; O2SAT 100; BMI 31.9
--- NOTE | 2022-12-28 08:45 | EDS_ITS ---
HPI History of Present Illness HPI Narrative: 22-year-old female at the bottom of the steps and stepped on a dog toy rolling her right ankle and falling. No other injuries. Complaining of right lateral ankle pain. Swelling. This occurred last night. Did not hit her head. No LOC. No other complaints. No prior ankle surgery or fracture. Chief Complaint: Lower Extremity Injury Informant: patient Occured/Mechanism Mechanism/Context: Yes injury Onset/Context/Timing Onset: Yesterday Context: Sudden Onset Timing: Continuous Quality of Pain: Dull and Aching Current Severity: Moderate Maximum Severity: Moderate Associated Symptoms Associated Symptoms: Negative for Parasthesia, Weakness or Loss of Funtion Narrative Narrative: 22-year-old male rolled her right ankle yesterday after stepping on a dog toy and falling. No other injuries. Prior similar symptoms: Yes Recent Illness/Hospitalization: No PFSH PFS Medical History Alcohol use Anxiety Anxiety and depression Asthma Attention deficit Back pain Depression Endometriosis Gastric reflux History of pain when walking History of pneumonia Insomnia Marijuana use Migraines Ovarian cyst Preventative health care Seasonal allergies Smoker Syncope Von Willebrand disease, type I Wears glasses Home Medications cetirizine 10 mg tablet (Zyrtec) 10 mg PO DAILY PRN ALLERGIES 04/24/20 [History Last Taken Unknown] desmopressin 150 mcg/spray (0.1 mL) nasal spray 4 spray intranasal DAILY PRN PRN PreOp blood clotting 07/26/21 [History Last Taken 07/26/21 06:30] albuterol sulfate 90 mcg/actuation aerosol inhaler 2 puff inhalation PRN PRN Wheezing #8.5 grams 03/15/22 [Rx Last Taken Unknown] bupropion HCl 150 mg 24 hr tablet, extended release 150 mg PO QAM #30 tabs 05/06/22 [Rx Last Taken Unknown] buspirone 5 mg tablet 5 mg PO BID #60 tabs 05/06/22 [Rx Last Taken Unknown] Allergy/AdvReac Type Severity Reaction Status Date / Time aspirin Allergy d.t Verified 12/28/22 08:32 bleeding disorder metoclopramide [From Reglan] Allergy [place] LIKE Verified 12/28/22 08:32 MY SKIN WAS CRAWLING montelukast sodium Allergy cant feel Verified 12/28/22 08:32 [From Singulair] my legs NSAIDS (Non-Steroidal Allergy d/t Verified 12/28/22 08:32 Anti-Inflamma bleeding disorder Family History Mother Depression with anxiety Alcoholism Uncle Alcoholism Grandmother Alcoholism Depression with anxiety Grandfather Alcoholism Depression with anxiety Surgical History H/O laparoscopy Social History household members: none housing: apartment Smoking Status: Current some day smoker tobacco type: cigarettes alcohol intake: current alcohol intake frequency: holidays/special occasions only substance use type: does not use what type of physical activity do you participate in: walking frequency: daily ROS ROS ED ROS Narrative Denies recent illness. Review of Systems ROS Unobtainable: Denies due to encephalopathy Constitutional Constitutional ED: Denies fever(s) Eyes Eyes: Denies blurry vision ENT ENT ED: Denies ear pain Cardiovascular Cardiovascular: Denies chest pain Respiratory/Chest Respiratory/Chest: Denies cough Gastrointestinal Gastrointestinal: Denies abdominal pain Genitourinary Genitourinary ED: Denies dysuria Musculoskeletal Musculoskeletal: Denies arthralgias, back pain or neck pain Integumentary Denies abscess Neurologic Neurologic: Denies headache(s) Psychiatric Psychiatric: Denies anxiety Endocrine Endocrinology: Denies polydipsia Hematologic/Lymphatic Hematologic/Lymphatic: Denies easy bleeding Allergic/Immunologic Allergic/Immunologic ED: Denies mouth swelling EXAM Physical Exam Narrative Exam Narrative: Well-appearing 22-year-old female. Vital signs stable afebrile. H EENT exam unremarkable atraumatic. Pupils round reactive light. Nontender. C-spine and back nontender. Trachea midline. Normal range of motion. Lungs clear to auscultation bilaterally. Chest were nontender. Ribs nontender. Heart regular rate and rhythm rate about 100 no murmur. Abdomen soft nontender. No peritoneal signs. Pelvic girdle intact. Moving all 4 extremities. Neurovascular intact. No deformity. Tenderness on the right lateral ankle that is swollen. No deformity. Medial malleolus is mildly tender also. Normal DP pulse. Achilles tendon intact. Able to wiggle her toes. Normal touch sensation. No tenderness or deformity to the foot. Proximal right lower leg and knee are unremarkable. Otherwise exam normal. Const Vital Signs: 12/28/22 08:30 Temperature 98.1 F Temperature Source Temporal Pulse Rate 105 H Respiratory Rate 16 Blood Pressure 135/69 H Blood Pressure Mean 91 Pulse Ox 100 Oxygen Delivery Method Room Air Positive well nourished and well developed; Negative for cachectic, contractures or unkempt General Appearance ED: well developed and NAD; Negative for unkempt, cachectic or contractures Nutritional Appearance: Negative for cachectic HEENT Reports moist mucous membranes; Denies other normocephalic and atraumatic; Negative for trauma, tenderness or other Eyes PERRL General Eye ED: Negative for other Neck full ROM and supple Thyroid: Negative for tender Chest Wall inspection of chest normal and palpation of chest normal Chest: Negative for other Resp normal respiratory effort, no retractions and clear to auscultation bilaterally Effort and Inspection: Negative for pain with movement Auscultation: Negative for rales, rhonchi or wheezes Cardio regular rate, regular rhythm, S1 normal heart sound, S2 normal heart sound and no murmurs Rate: Negative for bradycardia or tachycardic Rhythm: Negative for abnormal rhythm Bruits: Negative for other GI non-tender, non-distended and no masses Inspection: Negative for abdominal distention Auscultation: normoactive bowel sounds Palpation: soft; Negative for tender or guarding Bladder / Kidney Exam: No other Back/Spine no CVA tenderness General Back: Negative for CVA tenderness Cervical Spine: Negative for cervical spine tenderness Thoracic Spine / Upper Back: Negative for thoracic spinal tenderness Lumbar Spine / Lower Back: Negative for lumbar spinal tenderness Extremity normal to inspection and full ROM Extremity Narrative: Except right ankle lateral malleolus tender and swollen. Medial malleolus is tender but not swollen. Dorsi plantarflexion intact. Normal DP pulse. No gross bony deformity. Achilles tendon intact. Right foot neurovascular intact. General Extremety ED: Yes edema and weight-bearing difficulty; Negative for cyanosis General Extremity: edema and weight-bearing difficulty; Negative for cyanosis Neuro oriented x3, CN's II-XII intact bilaterally, moves all extremities and no sensory deficits noted Sensorium / Orientation: alert, oriented to person, oriented to place and oriented to time; Negative for orientation impaired or confused Motor Exam: strength 5/5 throughout Psych mental status grossly normal Appearance: Negative for unkempt Speech: No other Mood & Affect: Negative for anxious Skin no wounds Lesions: no lesions Rashes: no rashes Trauma: Negative for abrasion or laceration MDM MDM MDM Narrative Medical decision making narrative: 22-year-old female twisted her ankle after stepping on a dog toy last night. X- ray being obtained. She was given Tylenol for pain per her request. No other injuries. Ice and elevate. Motrin for pain and swelling. Tylenol for pain. Increase activity as tolerated. Aircast. Follow-up if not improving in 1 to 2 weeks. Patient doing well at 9:27 AM. I went over the x-ray results with her. Aircast. Discharge. Ice. Tylenol. Follow-up if not improving. Return if worse. Radiography Diagnostic Testing: Right ankle x-ray, 3 views, interpreted by myself shows lateral malleolus soft tissue swelling. No acute fracture or dislocation. On the medial malleolus there is an avulsion fracture I suspect old. Even if it is new it would not change her treatment this is still be treated as a ankle sprain. Discharge Plan Triage Chief Complaint: Lower Extremity Injury ED Provider: José Miguel Guerrero Dx/Rx/DC Orders Clinical Impression: Fall, Ankle sprain, History of von Willebrand's disease Instructions: ED Ankle Sprain (Adult) Prescriptions: No Action bupropion HCl 150 mg tablet extended release 24 hr 150 mg PO QAM Qty: 30 1RF buspirone 5 mg tablet 5 mg PO BID Qty: 60 1RF cetirizine [Zyrtec] 10 MG tablet 10 mg PO DAILY PRN (Reason: ALLERGIES) desmopressin 150 mcg/spray (0.1 mL) [place],Non-Aerosol 4 spray INTRANASAL DAILY PRN PRN (Reason: PreOp blood clotting) albuterol sulfate 90 mcg/actuation HFA aerosol inhaler 2 puff inhalation PRN PRN (Reason: Wheezing) Qty: 8.5 2RF Primary Care Provider: Veronika Loredo Referrals: Veronika Loredo MD [Primary Care Provider] - 10-14 Days if not better Activity Restrictions/Additional Instructions: Ice and elevate your right ankle to decrease pain and swelling. Tylenol for pain. Aircast to walk. Increase activity as tolerated. If in 1 to 2 weeks you are not having significant improvement follow-up to have it reevaluated. Occasionally there is a small break that we cannot see on the first x-ray. Disposition Disposition: Home, Self Care
[2022-12-28] MEDS: Acetaminophen 500 MG Tablet 1000 MG PO (09:11)
--- NOTE | 2022-12-28 09:15 | RAD_ITS ---
INDICATION: injury EXAMINATION/TECHNIQUE: X-RAY - RIGHT XR Ankle Min 3 Views 3 VIEWS COMPARISON: March 07, 2014 and left ankle dated April 24, 2020 FINDINGS: SOFT TISSUES: There is soft tissue swelling overlying the lateral malleolus. No radiopaque foreign body. BONES/JOINTS: There is a rounded bony density caudal to the medial malleolus. Normal alignment. Preservation of the joint space.. No sclerotic or destructive changes observed. RAD/Ankle min 3 Views IMPRESSION: Soft tissue swelling overlying the lateral malleolus. Bony density caudal to the medial malleolus which may be secondary to an ossicle or an avulsion injury of uncertain chronicity. Electronically Signed: Corinne Abreu MD at 9:31 EDT ,
== END 2022-12-28 09:45 | disposition home or self-care (01) ==
LOC: ED 09:19
PROVIDERS: Emergency Provider Emergency Medicine; PCP Internal Medicine; Visit Provider Emergency Medicine
DX: S93.409A Sprain of unspecified ligament of unspecified ankle, initial encounter (principal); D68.01 Von Willebrand disease, type 1; F17.210 Nicotine dependence, cigarettes, uncomplicated; W10.9XXA Fall (on) (from) unspecified stairs and steps, initial encounter; J45.909 Unspecified asthma, uncomplicated
CPT/HCPCS: 73610; 99283

== ENCOUNTER 2023-12-23 15:19 | Emergency (ER) | payer MEDICAID, SELFPAY ==
[2023-12-23 15:20] VITALS: BP 135/77; PULSE 121; RESP 18; TEMP 36.3; O2SAT 97; BMI 31.4
--- NOTE | 2023-12-23 15:46 | US_ITS ---
STUDY: SECOND AND THIRD TRIMESTER OBSTETRICAL ULTRASOUND - LIMITED REASON FOR EXAM: Female, 23 years old rt side abd pain TECHNIQUE: Transabdominal PRIOR ULTRASOUND: None. FINDINGS: There is a single intrauterine fetus. The fetus is in a cephalic presentation. There is demonstrated cardiac activity with a heart rate of 147 bpm. There is a normal amniotic fluid volume. The largest amniotic fluid pocket measures 3.2 cm. The placenta is posterior and not low-lying. There are Grade 0 placental changes. The cervix measures 2.4 cm in length. The bilateral adnexal regions are normal. US/OB Limited (No Biometrics) IMPRESSION: Living intrauterine with estimated gestational age of 17 weeks and 5 days. No obvious anomalies. Electronically Signed: Marito Elise MD at 17:40 EDT ,
--- NOTE | 2023-12-23 15:47 | EDS_ITS ---
HPI HPI - GI History of Present Illness Chief Complaint: Abd Pain Narrative Narrative: 23-year-old female presenting with abdominal pain. She has a history of endometriosis and does have abdominal pain. She also has PCOS. Patient states she is 18 weeks . She is confirmed intrauterine . Last hCG was 6000 she recalls. Patient not had any dysuria, hematuria. She denies vaginal discharge or bleeding. She states the pain started earlier today and feels sharp and achy. She notes that she has had some back pain but it does not seem to be related. It is worse with twisting or moving. Will also bladder bowel control. No saddle anesthesia. Patient states he feels nauseous today which is not common for her since her . She states most the time she is not nauseous. She states with the pain she has been more nauseous. No hi story of kidney stones. [facility] Medical History Alcohol use Anxiety Anxiety and depression Asthma Attention deficit Back pain Depression Endometriosis Gastric reflux History of pain when walking History of pneumonia Insomnia Marijuana use Migraines Ovarian cyst Preventative health care Seasonal allergies Smoker Syncope Von Willebrand disease, type I Wears glasses Home Medications cetirizine 10 mg tablet (Zyrtec) 10 mg PO DAILY PRN ALLERGIES 04/24/20 [History Last Taken Unknown] desmopressin 150 mcg/spray (0.1 mL) nasal spray 4 spray intranasal DAILY PRN PRN PreOp blood clotting 07/26/21 [History Last Taken 07/26/21 06:30] bupropion HCl 150 mg 24 hr tablet, extended release 150 mg PO QAM #30 tabs 05/06/22 [Rx Last Taken Unknown] buspirone 5 mg tablet 5 mg PO BID #60 tabs 05/06/22 [Rx Last Taken Unknown] albuterol sulfate 90 mcg/actuation aerosol inhaler 2 puff inhalation PRN PRN Wheezing #8.5 grams 07/29/23 [Rx Last Taken Unknown] ondansetron 4 mg disintegrating tablet 4 mg PO Q8H PRN PRN Nausea #14 tabs 12/23/23 [Rx Last Taken Unknown] Allergy/AdvReac Type Severity Reaction Status Date / Time aspirin Allergy d.t Verified 12/23/23 15:20 bleeding disorder metoclopramide [From Reglan] Allergy CARLTON LIKE Verified 12/23/23 15:20 MY SKIN WAS CRAWLING montelukast sodium Allergy cant feel Verified 12/23/23 15:20 [From Singulair] my legs NSAIDS (Non-Steroidal Allergy d/t Verified 12/23/23 15:20 Anti-Inflamma bleeding disorder Family History Mother Depression with anxiety Alcoholism Uncle Alcoholism Grandmother Alcoholism Depression with anxiety Grandfather Alcoholism Depression with anxiety Surgical History H/O laparoscopy Social History household members: none housing: apartment Smoking Status: Current some day smoker tobacco type: cigarettes alcohol intake: current alcohol intake frequency: holidays/special occasions only substance use type: does not use what type of physical activity do you participate in: walking frequency: daily ROS ROS ED Constitutional Constitutional ED: Denies chills, fever(s) or sweats Eyes Eyes: Denies blurry vision or change in vision ENT ENT ED: Denies ear pain or sore throat Cardiovascular Cardiovascular: Denies chest pain, palpitations or racing heartbeat Respiratory/Chest Respiratory/Chest: Denies cough, dyspnea or sputum Gastrointestinal Gastrointestinal: Reports abdominal pain; Denies constipation, diarrhea, nausea or vomiting Genitourinary Genitourinary ED: Denies dysuria, hematuria or urinary frequency Musculoskeletal Musculoskeletal: Reports back pain; Denies arthralgias, myalgias or neck pain Integumentary Denies abscess, Abrasions or rash Neurologic Neurologic: Denies headache(s), paresthesias or weakness Psychiatric Psychiatric: Denies anxiety, depression, suicidal ideation or suicidal thoughts Endocrine Endocrinology: Denies polydipsia or polyuria EXAM Physical Exam Const Vital Signs: 12/23/23 15:20 12/23/23 17:19 12/23/23 18:54 Temperature 97.4 F L 97.8 F Temperature Source Temporal Pulse Rate 121 H 84 81 Respiratory Rate 18 16 16 Blood Pressure 135/77 H 107/63 117/67 Blood Pressure Mean 96 77 83 Pulse Ox 97 99 99 Oxygen Delivery Method Room Air Room Air Positive well nourished General Appearance ED: NAD; Negative for pallor HEENT Reports moist mucous membranes Eyes PERRL and EOMs intact bilaterally Resp normal respiratory effort Cardio regular rhythm Rate: tachycardic GI GI Narrative: Right lower pelvic tenderness is mild. No McBurney point tenderness. No CVA tenderness. No Andrea sign. Abdomen soft. Palpation: tender; Negative for guarding or rigid Back/Spine Back/Spine Narrative: Tenderness to palpation left lumbar paraspinal musculature approximately L1. No bruising, deformity, step-off. Neuro CN's II-XII intact bilaterally Sensorium / Orientation: alert Motor Exam: strength 5/5 throughout Psych mental status grossly normal Skin General Skin Exam: Negative for jaundice or pallor MDM MDM MDM Narrative Medical decision making narrative: Patient presenting with abdominal pain which she really describes in the lower pelvis. She is mildly tender on examination. Vital signs stable although she is a little tachycardic. She complains of nausea. Differential includes threatened miscarriage, kidney stone, UTI, pyelonephritis, colitis, ovarian cyst, ovarian torsion, endometriosis. CBC was obtained to assess white blood cell count, hemoglobin and platelets. CMP to assess liver function, renal function, electrolytes. Urinalysis to assess for UTI. Quantitative hCG will be obtained. Transvaginal ultrasound was ordered. CBC shows white blood cell count of 7.7. Hemoglobin 10.1. Platelets are normal LFTs, lipase normal. Urinalysis negative for infection and shows contamination. Transvaginal ultrasound shows live intrauterine at 17 weeks 5 days. Discussed the case with Dr. Dow and she recommended close follow-up as an outpatient. She recommended sending urine for culture and did not think this was a UTI. Patient is not symptomatic of urine symptoms. Patient counseled on findings. She will be given Zofran for home. Impression: 1. Abdominal pain 2. Second trimester 3. Nausea Lab Data Attestation: I reviewed the patient's lab results. Labs: Laboratory Results - last 24 hr 12/23/23 15:50 WBC 7.7 RBC 3.34 L Hgb 10.1 L Hct 30.2 L MCV 90.4 MCH 30.2 MCHC 33.4 RDW Std Deviation 39.9 RDW Coeff of Vanessa 12.2 Plt Count 212 MPV 9.9 Immature Gran % (Auto) 0.300 Neut % (Auto) 76.1 H Lymph % (Auto) 18.1 L Moca % (Auto) 5.1 Eos % (Auto) 0.4 Baso % (Auto) 0.0 Absolute Neuts (auto) 5.9 Absolute Lymphs (auto) 1.39 Nucleated RBC % 0 Sodium 139 Potassium 3.8 Chloride 110 H Carbon Dioxide 25.0 Anion Gap 4 L BUN 6 L Creatinine 0.47 L Estim Creat Clear Calc 213.95 Est GFR (MDRD) Af Amer 209 Est GFR (MDRD) Non-Af 173 BUN/Creatinine Ratio 12.8 Glucose 110 H Calcium 8.5 Total Bilirubin 0.20 AST 15 ALT 36 Alkaline Phosphatase 68 Total Protein 6.3 L Albumin 2.9 L Globulin 3.4 Albumin/Globulin Ratio 0.9 Lipase 42 HCG, Quant 96612 H Urine Color Yellow Urine Clarity Sl. Cloudy Urine pH 7.0 Ur Specific Riddle 1.015 Urine Protein 15 H Urine Glucose (UA) Normal Urine Ketones Negative Urine Occult Blood Negative Urine Nitrite Negative Urine Bilirubin Negative Urine Urobilinogen Normal Ur Leukocyte Esterase 500 H Urine RBC 0 SEEN Urine WBC 5-10 SEEN Ur Squamous Epith Cells 5-10 SEEN Urine Bacteria 2+ Urine Mucus 0 SEEN Radiography Diagnostic Testing: Clinical Impression(s) from Imaging Studies Obstetrics Ultrasound 12/23/23 15:46 IMPRESSION: Living intrauterine with estimated gestational age of 17 weeks and 5 days. No obvious anomalies. Electronically Signed: Marito Elise MD at 17:40 EDT , Discharge Plan Triage Chief Complaint: Abd Pain ED Provider: Erwin Chamberlain Dx/Rx/DC Orders Instructions: ED Abdominal Pain, Early Prescriptions: New ondansetron 4 mg tablet,disintegrating 4 mg PO Q8H PRN PRN (Reason: Nausea) Qty: 14 0RF No Action bupropion HCl 150 mg tablet extended release 24 hr 150 mg PO QAM Qty: 30 1RF buspirone 5 mg tablet 5 mg PO BID Qty: 60 1RF cetirizine [Zyrtec] 10 MG tablet 10 mg PO DAILY PRN (Reason: ALLERGIES) desmopressin 150 mcg/spray (0.1 mL) [place],Non-Aerosol 4 spray INTRANASAL DAILY PRN PRN (Reason: PreOp blood clotting) albuterol sulfate 90 mcg/actuation HFA aerosol inhaler 2 puff inhalation PRN PRN (Reason: Wheezing) Qty: 8.5 2RF Primary Care Provider: Veronika Loredo Referrals: Veronika Loredo MD [Primary Care Provider] - Cami Dow MD [Med Staff - Active Staff] - 3-5 Days Disposition Disposition: Home, Self Care Discharge Date/Time: 12/23/23 18:55
[2023-12-23 16:03] LABS: Mucous, Urine 0 SEEN /hpf (<or=2+)
[2023-12-23 16:06] LABS: Absolute Lymphocyte Count 1.39 X10^3/uL (0.83-4.51); Absolute Neutrophil Count 5.9 X10^3/uL (2.0-7.7); Eosinophil# 0.03 X10^3/uL; Eosinophils% 0.4 % (0-5); Hematocrit 30.2 % (37-47); Hemoglobin 10.1 g/dL (12.0-15.0); Lymphocyte # 1.39 X10^3/ul (0.83-4.51); Lymphocyte % 18.1 % (19-41); Mean Corp Hgb Conc 33.4 g/dL (32-36); Mean Corpuscular Hgb 30.2 pg (27.0-32.0); Mean Corpuscular Volume 90.4 fL (81-99); Mean Platelet Vol. 9.9 fl (6.2-12.0); Monocyte# 0.39 X10^3/uL; Monocyte% 5.1 % (0-10); NRBC Flagged by Analyzer 0 % (0-5); Neutrophil # 5.85 X10^3/uL (2.7-7.7); Neutrophil % 76.1 % (47-70); Platelet Count 212 K/mm3 (150-450); RBC Distribution Width CV 12.2 % (11.6-14.6); RBC Distribution Width SD 39.9 fl (35.1-43.9); Red Blood Count 3.34 M/mm3 (4.2-5.4); White Blood Count 7.7 K/mm3 (4.4-11.0)
[2023-12-23 16:17] LABS: Color, Urine Yellow (Yellow); Glucose, Dipstick Normal (Normal); Ketone-Dipstick Negative (Negative); Leukocyte Esterase-Dipstick 500 /ul (Negative); Nitrite-Dipstick Negative (Negative); Occult Blood-Urine Negative /ul (Negative); Protein-Dipstick 15 mg/dl (Negative); Specific Gravity, Urine 1.015 (1.002-1.030); Urine Bilirubin Dipstick Negative (Negative); Urine Clarity Sl. Cloudy (Clear); Urine Urobilinogen Normal (Normal)
[2023-12-23 16:25] LABS: Bacteria 2+ /hpf (None Seen); White Blood Cells 5-10 SEEN /hpf (0-5)
[2023-12-23 16:27] LABS: Red Blood Cells-Urine 0 SEEN /hpf (0-5); Squamous Epithelial Cells - UA 5-10 SEEN /hpf (5-10)
[2023-12-23 16:44] LABS: ALB/GLOB Ratio 0.9 RATIO (0.9-2.4); AST(SGOT) 15 U/L (15-37); Alanine Aminotransfer ALT/SGPT 36 U/L (13-56); Albumin, Serum 2.9 g/dL (3.2-5.0); Alkaline Phosphatase 68 U/L (45-117); Anion Gap 4 (5-15); BUN 6 mg/dL (7-18); BUN/Creat Ratio 12.8 RATIO (10-20); Calcium,Total 8.5 mg/dL (8.5-10.1); Chloride 110 mmol/L (98-107); Creatinine, Serum 0.47 mg/dL (0.55-1.02); EST Glomerular Filtration Rate 173 mL/min (>60); Est Glom Filt Rate - Afr Amer 209 mL/min (>60); Estimated Creatinine Clearance 213.95 ml/min; Globulin 3.4 g/dL (2.2-4.2); Glucose 110 mg/dL (74-106); Lipase 42 U/L (13-75); Potassium 3.8 mmol/L (3.5-5.1); Protein, Total 6.3 g/dL (6.4-8.2); Sodium Level 139 mmol/L (136-145); hCG Titer Quant., Serum 13751 mIU/mL (1-3)
[2023-12-23 17:19] VITALS: BP 107/63; PULSE 84; RESP 16; O2SAT 99
[2023-12-23] MEDS: Ondansetron 4 MG/2 ML Vial IV (17:29)
[2023-12-23 18:54] VITALS: BP 117/67; PULSE 81; RESP 16; TEMP 36.6; O2SAT 99
== END 2023-12-23 18:55 | disposition home or self-care (01) ==
PROVIDERS: Emergency Provider Student in an Organized Health Care Education/Training Program; PCP Internal Medicine; Visit Provider Student in an Organized Health Care Education/Training Program
DX: O26.892 Other specified pregnancy related conditions, second trimester (principal); Z3A.17 17 weeks gestation of pregnancy; O99.332 Smoking (tobacco) complicating pregnancy, second trimester; R11.0 Nausea; F32.A Depression, unspecified; Z79.899 Other long term (current) drug therapy; F17.210 Nicotine dependence, cigarettes, uncomplicated; O99.891 Other specified diseases and conditions complicating pregnancy; O99.342 Other mental disorders complicating pregnancy, second trimester; R10.9 Unspecified abdominal pain
CPT/HCPCS: 76815; 80053; 81001; 83690; 84702; 85025; 87086; 87088; 96374; 99283; A4216; J2405

== ENCOUNTER 2024-04-16 17:30 | Outpatient (CLI) | payer MEDICAID, SELFPAY ==
[2024-04-16 17:50] VITALS: RESP 16; TEMP 36.7; O2SAT 100
[2024-04-16 18:05] VITALS: BMI 33.3
[2024-04-16 18:28] LABS: Hematocrit 28.8 % (37-47); Hemoglobin 9.8 g/dL (12.0-15.0); Mean Corpuscular Hgb 30.9 pg (27.0-32.0); Mean Corpuscular Volume 90.9 fL (81-99); Mean Platelet Vol. 9.5 fl (6.2-12.0); Platelet Count 205 K/mm3 (150-450); RBC Distribution Width CV 12.8 % (11.6-14.6); RBC Distribution Width SD 42.3 fl (35.1-43.9); Red Blood Count 3.17 M/mm3 (4.2-5.4)
[2024-04-16 19:11] LABS: AST(SGOT) 13 U/L (15-37); Alanine Aminotransfer ALT/SGPT 18 U/L (13-56); EST Glomerular Filtration Rate 158 mL/min (>60); Est Glom Filt Rate - Afr Amer 191 mL/min (>60); Estimated Creatinine Clearance 205.29 ml/min; Protein, Urine (Random) 12.6 mg/dL (<11.9); Protein:Creat Ratio 302 mg/g CRE (0-200); Uric Acid 3.8 mg/dL (2.6-6.0)
[2024-04-16] MEDS: Acetaminophen/Butalbital/Caffe 1 Tablet 2 TABLET PO (19:14)
--- NOTE | 2024-04-16 20:42 | OB.TRI.NOTE ---
HPI - General General Date of Admission: 04/16/24 Date of Service: 04/16/24 Chief Complaint: Headache and swelling HPI Narrative KEIRA GUARDADO, is a 24 F who presents with a headache and concern for Pre E Maternal Data Information Final TAMERA: [birth year] Gestational age: 34 PFSH PFSH Medical History Attention deficit Anxiety and depression Wears glasses Anxiety Depression Alcohol use Marijuana use Back pain Syncope Gastric reflux Smoker History of pain when walking Preventative health care History of pneumonia Ovarian cyst Insomnia Migraines Seasonal allergies Endometriosis Asthma Von Willebrand disease, type I Home Medications ?Medication ?Instructions ?Recorded ?Last Taken ?Type cetirizine 10 mg tablet (Zyrtec) 10 mg PO DAILY PRN ALLERGIES 04/24/20 Unknown History desmopressin 150 mcg/spray (0.1 4 spray intranasal DAILY PRN PRN 07/26/21 07/26/21 06:30 History mL) nasal spray PreOp blood clotting bupropion HCl 150 mg 24 hr tablet, 150 mg PO QAM #30 tabs 05/06/22 Unknown Rx extended release buspirone 5 mg tablet 5 mg PO BID #60 tabs 05/06/22 Unknown Rx albuterol sulfate 90 mcg/actuation 2 puff inhalation PRN PRN Wheezing 07/29/23 Unknown Rx aerosol inhaler #8.5 grams ondansetron 4 mg disintegrating 4 mg PO Q8H PRN PRN Nausea #14 tabs 12/23/23 Unknown Rx tablet [id number]-njtoftyo 1 cap PO Q8H PRN pain #20 caps 04/16/24 Unknown Rx 50 mg-300 mg-40 mg capsule (Fioricet) Allergy/AdvReac Type Severity Reaction Status Date / Time aspirin Allergy d.t Verified 04/16/24 18:14 bleeding disorder metoclopramide (From Reglan) Allergy CARLTON LIKE Verified 04/16/24 18:14 MY SKIN WAS CRAWLING montelukast sodium (From Allergy cant feel Verified 04/16/24 18:14 Singulair) my legs NSAIDS (Non-Steroidal Allergy d/t Verified 04/16/24 18:14 Anti-Inflamma bleeding disorder Family History Mother Depression with anxiety Alcoholism Uncle Alcoholism Grandmother Alcoholism Depression with anxiety Grandfather Alcoholism Depression with anxiety Surgical History H/O laparoscopy Social History household members: none housing: apartment Smoking Status: Current some day smoker tobacco type: cigarettes alcohol intake: current alcohol intake frequency: holidays/special occasions only substance use type: does not use what type of physical activity do you participate in: walking frequency: daily History 1 Elective abortions Hx Para 0 Spontaneous abortions Hx # Term Pregnancies Ectopic pregnancies Hx # Pregnancies Multiple births # of living children NST FHR Rate Baby A Baseline: 145 Variability:: Moderate Accelerations:: 15 x 15 Decelerations:: None NST Reactive:: Yes FHR Category:: Category I Uterine Activity:: quiet Assessment & Plan (1) Headache in , antepartum: PLAN: Plan Headache improved with Fioricet. Labs normal
== END 2024-04-16 20:45 | disposition home or self-care (01) ==
LOC: WPOUT 17:47 → WP 17:48
PROVIDERS: PCP Internal Medicine; Referring Provider Obstetrics & Gynecology; Visit Provider Obstetrics & Gynecology
DX: O99.891 Other specified diseases and conditions complicating pregnancy (principal); R51.9 Headache, unspecified; F17.210 Nicotine dependence, cigarettes, uncomplicated; J45.909 Unspecified asthma, uncomplicated; K21.9 Gastro-esophageal reflux disease without esophagitis; O99.513 Diseases of the respiratory system complicating pregnancy, third trimester; O99.613 Diseases of the digestive system complicating pregnancy, third trimester; Z3A.34 34 weeks gestation of pregnancy
CPT/HCPCS: 36415; 59025; 82565; 82570; 84156; 84450; 84460; 84550; 85027; 99221; G0378

== ENCOUNTER 2024-05-28 22:57 | Inpatient (IN) | payer MEDICAID, SELFPAY ==
[2024-05-28 22:27] VITALS: BMI 34.1
[2024-05-28 22:38] VITALS: BP 137/90; PULSE 106; RESP 14; TEMP 36.4
[2024-05-28 22:39] VITALS: PULSE 109; O2SAT 97
[2024-05-28] MEDS: Lactated Ringers 1,000 ML 50 ML IV (23:50)
[2024-05-29] VITALS (74 sets, daily range): BP systolic 91–174; BP diastolic 53–97; PULSE 80–127; RESP 14–18; TEMP 36.3–37.9; O2SAT 69–100
[2024-05-29 00:09] LABS: Absolute Lymphocyte Count 1.98 X10^3/uL (0.83-4.51); Absolute Neutrophil Count 7.7 X10^3/uL (2.0-7.7); Basophil# 0.02 X10^3/uL; Basophil% 0.2 % (0-1); Eosinophil# 0.02 X10^3/uL; Eosinophils% 0.2 % (0-5); Hematocrit 31.8 % (37-47); Hemoglobin 10.7 g/dL (12.0-15.0); Lymphocyte # 1.98 X10^3/ul (0.83-4.51); Lymphocyte % 19.1 % (19-41); Mean Corp Hgb Conc 33.6 g/dL (32-36); Mean Corpuscular Hgb 30.5 pg (27.0-32.0); Mean Corpuscular Volume 90.6 fL (81-99); Mean Platelet Vol. 10.5 fl (6.2-12.0); Monocyte# 0.58 X10^3/uL; Monocyte% 5.6 % (0-10); NRBC Flagged by Analyzer 0 % (0-5); Neutrophil # 7.71 X10^3/uL (2.7-7.7); Neutrophil % 74.5 % (47-70); Platelet Count 195 K/mm3 (150-450); RBC Distribution Width CV 13.5 % (11.6-14.6); RBC Distribution Width SD 44.2 fl (35.1-43.9); Red Blood Count 3.51 M/mm3 (4.2-5.4); White Blood Count 10.4 K/mm3 (4.4-11.0)
[2024-05-29 00:40] LABS: Syphilis Antibodies Non-reactive
[2024-05-29] MEDS: fentaNYL 100 MCG/2 ML Ampul IV (09:24)
[2024-05-29] MEDS: Lactated Ringers 1,000 ML 999 ML IV (10:00)
--- NOTE | 2024-05-29 10:42 | HP.PCM.OB_ITS ---
HPI - General General Date of Admission: 05/28/24 Date of Service: 05/28/24 Chief Complaint: ROM HPI Narrative KEIRA GUARDADO, is a 24 F who presents with SROM. Clear on presentation. Desires natural labor. Maternal Data Information Final TAMERA: 05/27/24 Gestational age: 40+1 PFSH [facility] Medical History Attention deficit Anxiety and depression Wears glasses Anxiety Depression Alcohol use Marijuana use Back pain Syncope Gastric reflux Smoker History of pain when walking Preventative health care History of pneumonia Ovarian cyst Insomnia Migraines Seasonal allergies Endometriosis Asthma Von Willebrand disease, type I Home Medications ?Medication ?Instructions ?Recorded ?Last Taken ?Type desmopressin 150 mcg/spray (0.1 4 spray intranasal DAILY PRN PRN 07/26/21 07/26/21 06:30 History mL) nasal spray PreOp blood clotting albuterol sulfate 90 mcg/actuation 2 puff inhalation PRN PRN Wheezing 07/29/23 Unknown Rx aerosol inhaler #8.5 grams ondansetron 4 mg disintegrating 4 mg PO Q8H PRN PRN Nausea #14 tabs 12/23/23 Unknown Rx tablet ferrous sulfate 325 mg (65 mg 325 mg PO DAILY 05/28/24 Unknown History iron) tablet (Iron (ferrous sulfate)) Allergy/AdvReac Type Severity Reaction Status Date / Time aspirin Allergy d.t Verified 04/16/24 18:14 bleeding disorder metoclopramide (From Reglan) Allergy CARLTON LIKE Verified 04/16/24 18:14 MY SKIN WAS CRAWLING montelukast sodium (From Allergy cant feel Verified 04/16/24 18:14 Singulair) my legs NSAIDS (Non-Steroidal Allergy d/t Verified 04/16/24 18:14 Anti-Inflamma bleeding disorder Family History Mother Depression with anxiety Alcoholism Uncle Alcoholism Grandmother Alcoholism Depression with anxiety Grandfather Alcoholism Depression with anxiety Surgical History H/O laparoscopy Social History household members: none housing: apartment Smoking Status: Former smoker alcohol intake: current alcohol intake frequency: holidays/special occasions only substance use type: does not use what type of physical activity do you participate in: walking frequency: daily History 1 Elective abortions Hx Para 0 Spontaneous abortions Hx # Term Pregnancies Ectopic pregnancies Hx # Pregnancies Multiple births # of living children NST FHR Rate Baby A Baseline: 140 Variability:: Moderate Accelerations:: 15 x 15 Decelerations:: None NST Reactive:: Yes FHR Category:: Category I Uterine Activity:: q 2-4 ROS Constitutional Constitutional: Denies fatigue, fever(s) or malaise Eyes Eyes: Denies change in vision ENT HEENT: Denies dizziness or headache(s) Cardiovascular Cardiovascular: Denies chest pain, dyspnea or lightheadedness Respiratory/Chest Respiratory/Chest: Denies cough or dyspnea Gastrointestinal Gastrointestinal: Denies change in bowel habits Genitourinary Genitourinary: Denies burning urination or genital lesions Integumentary Integumentary: Denies rash Neurologic Neurologic: Denies confusion, dizziness, headache(s), numbness or weakness Vital Signs Vital Signs Vital Signs: 05/28/24 22:38 05/28/24 22:38 05/28/24 22:38 Temperature Temperature Source Temporal Pulse Rate 106 H Respiratory Rate Blood Pressure 137/90 H BP Systolic 137 BP Diastolic 90 Pulse Ox 05/28/24 22:38 05/28/24 22:38 05/28/24 22:39 Temperature 97.6 F L Temperature Source Pulse Rate 109 H Respiratory Rate 14 Blood Pressure BP Systolic BP Diastolic Pulse Ox 05/28/24 22:39 05/29/24 00:43 05/29/24 00:43 Temperature Temperature Source Pulse Rate 91 Respiratory Rate Blood Pressure 121/70 H BP Systolic 121 BP Diastolic 70 Pulse Ox 97 05/29/24 00:44 05/29/24 00:44 05/29/24 00:44 Temperature 97.9 F Temperature Source Temporal Pulse Rate Respiratory Rate 18 Blood Pressure BP Systolic BP Diastolic Pulse Ox 05/29/24 02:46 05/29/24 02:46 05/29/24 02:46 Temperature Temperature Source Temporal Pulse Rate 96 Respiratory Rate Blood Pressure 140/68 H BP Systolic 140 BP Diastolic 68 Pulse Ox 05/29/24 02:46 05/29/24 02:46 05/29/24 02:46 Temperature 98.5 F Temperature Source Pulse Rate Respiratory Rate 18 Blood Pressure BP Systolic BP Diastolic Pulse Ox 98 05/29/24 03:29 05/29/24 03:29 05/29/24 03:29 Temperature Temperature Source Temporal Pulse Rate 82 Respiratory Rate Blood Pressure 120/64 BP Systolic 120 BP Diastolic 64 Pulse Ox 05/29/24 03:29 05/29/24 03:29 05/29/24 03:29 Temperature 97.8 F Temperature Source Pulse Rate Respiratory Rate 18 Blood Pressure BP Systolic BP Diastolic Pulse Ox 97 05/29/24 04:53 05/29/24 04:53 05/29/24 04:53 Temperature Temperature Source Temporal Pulse Rate 115 H Respiratory Rate Blood Pressure 126/69 H BP Systolic 126 BP Diastolic 69 Pulse Ox 05/29/24 04:53 05/29/24 04:53 05/29/24 04:53 Temperature 97.9 F Temperature Source Pulse Rate Respiratory Rate 18 Blood Pressure BP Systolic BP Diastolic Pulse Ox 98 05/29/24 04:54 05/29/24 04:54 05/29/24 06:40 Temperature Temperature Source Pulse Rate 114 H 121 H Respiratory Rate Blood Pressure BP Systolic BP Diastolic Pulse Ox 98 05/29/24 06:40 05/29/24 06:40 05/29/24 06:40 Temperature Temperature Source Temporal Pulse Rate Respiratory Rate 18 Blood Pressure BP Systolic BP Diastolic Pulse Ox 100 05/29/24 06:40 05/29/24 06:40 05/29/24 06:41 Temperature 97.4 F L Temperature Source Pulse Rate Respiratory Rate Blood Pressure 124/64 H BP Systolic 124 BP Diastolic 64 Pulse Ox 98 05/29/24 06:41 05/29/24 07:24 05/29/24 07:24 Temperature Temperature Source Temporal Pulse Rate 93 98 Respiratory Rate Blood Pressure BP Systolic BP Diastolic Pulse Ox 05/29/24 07:24 05/29/24 07:24 05/29/24 07:24 Temperature 97.6 F L Temperature Source Pulse Rate Respiratory Rate 16 Blood Pressure BP Systolic BP Diastolic Pulse Ox 96 05/29/24 07:25 05/29/24 07:25 05/29/24 09:13 Temperature Temperature Source Temporal Pulse Rate 105 H Respiratory Rate Blood Pressure 112/73 BP Systolic 112 BP Diastolic 73 Pulse Ox 05/29/24 09:13 05/29/24 09:13 05/29/24 09:13 Temperature Temperature Source Pulse Rate 82 Respiratory Rate 16 Blood Pressure BP Systolic BP Diastolic Pulse Ox 100 05/29/24 09:13 05/29/24 09:14 05/29/24 09:14 Temperature 99.2 F H Temperature Source Pulse Rate 80 Respiratory Rate Blood Pressure 174/70 H BP Systolic 174 BP Diastolic 70 Pulse Ox 05/29/24 09:15 05/29/24 09:15 Temperature Temperature Source Pulse Rate 88 Respiratory Rate Blood Pressure 115/57 L BP Systolic 115 BP Diastolic 57 Pulse Ox Weight Weight: 98.9 kg Body Mass Index (BMI) 34.1 Physical Exam Const alert and no apparent distress General Appearance: cooperative HEENT normocephalic Resp normal respiratory effort Cardio regular rate GI soft to palpation GI Narrative: gravid, nontender, appropriate for gestational age Extremity no calf tenderness General Extremity: edema Skin no wounds Rashes: No rashes noted Psych activity/motor behavior normal Labs Labs Labs: Blood Type O POSITIVE Antibody Screen NEGATIVE Hct 31.8 % (37-47) L Hgb 10.7 g/dL (12.0-15.0) L Obstetrics Ultrasound Syphilis Total Ab Non-reactive VZV IgG Antibody < 135 index (Immune >165) L Hep Bs Antigen Non-Reactive (Nonreactive) Hepatitis C Antibody Non-Reactive (Nonreactive) Chlamydia DNA (MALIKA) Positive (Negative) H N.gonorrhoeae DNA (MALIKA) Negative (Negative) HIV 1&2 Antibody Non-Reactive (Nonreactive) Miscellaneous Test Assessment & Plan (1) SROM (spontaneous rupture of membranes): (2) 40 weeks gestation of : PLAN: Plan Augmentation prn epidural prn
[2024-05-29] MEDS: fentaNYL-bupivacaine (epidural) 100 ML BAG EPIDURAL (10:54)
[2024-05-29] MEDS: Ondansetron 4 MG/2 ML Vial IV (13:08)
[2024-05-29] MEDS: Oxytocin 15 Units/NS 250ml 15 UNITS/250 ML IV.SOLN 334 UNITS IV (13:13)
--- NOTE | 2024-05-29 13:39 | EX.PCM.OBRPT ---
Assessment & Plan (1) (spontaneous vaginal delivery): Maternal Data Information Final TAMERA: 05/27/24 Gestational age: 40+2 Vaginal Delivery Maternal Presentation Maternal Presentation: Spontaneous Rupture of Membranes Operative Information Date of Procedure: 05/29/24 Pre-Operative Diagnosis: SROM Post-Operative Diagnosis: same Surgery / Procedure Performed: Spontaneous Vaginal Delivery Type of Anesthesia: Epidural Estimated Blood Loss: 150 cc Time of Delivery: 13:12 Findings Description of Procedure: Patient progressed to complete without augmentation. Delivered over an intact peritoneum ARIC. The anterior and posterior shoulders delivered without complication. The was placed on the maternal abdomen. The cord was clamped and cut. Cord blood was collected. The placenta was delivered with gentle traction. A mediolateral laceration was repaired with 2-0 Vicryl. Presentation: ARIC Amniotic Membrane Rupture Type: Spontaneous Amniotic Fluid Description: Clear and Lightly stained meconium Placental Delivery Description: Spontaneous Placenta Disposition: [facility] Cord Vessel Description: 3 Vessels Cord Entanglement: None Infant A Gender: Male (1 minute): 8 (5 minute): 9 Delayed Cord Clamping: Yes Post Vaginal Delivery Medications Given After Delivery: IV Pitocin Episiotomy Description: None Laceration: Right Mediolateral and 1st degree Complication Complications: None
[2024-05-29] MEDS: Oxytocin 15 Units/NS 250ml 15 UNITS/250 ML IV.SOLN 83 UNITS IV (14:24)
[2024-05-29] MEDS: Benzocaine/Lanolin/Aloe Vera 85 GM Spray 1 SPRAY TOPICAL (15:28)
[2024-05-29] MEDS: 0.9% Saline Lock 10 ML Syringe IV (17:33)
[2024-05-30 00:16] VITALS: BP 128/67; PULSE 85
[2024-05-30 00:27] VITALS: BP 128/67; PULSE 85; RESP 16; TEMP 36.7
[2024-05-30 03:48] VITALS: BP 116/61; PULSE 86
[2024-05-30 03:51] VITALS: BP 116/61; PULSE 86; RESP 16; TEMP 36.6
[2024-05-30 10:00] VITALS: BP 118/68; PULSE 88; RESP 18; TEMP 36.2; O2SAT 97
[2024-05-30 10:21] VITALS: BP 118/68; PULSE 88
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
--- NOTE | 2024-05-30 14:08 | PCM.PN.OB ---
Subjective Subjective Doing well. No complaints. Mild lochia. Pain controlled. Breast feeding Objective Data Objective Data Vital Signs: Vital Signs Temp Pulse Resp BP Pulse Ox O2 Del Method 97.1 F L 88 18 118/68 97 Room Air 05/30/24 10:00 05/30/24 10:21 05/30/24 10:00 05/30/24 10:21 05/30/24 10:00 05/30/24 10:00 Oxygen Delivery Method Room Air Weight: 98.9 kg Body Mass Index (BMI) 34.1 Intake & Output: Intake and Output for Last 24 Hours 05/28/24 05/29/24 05/30/24 23:59 23:59 23:59 Intake Total 2139.83 / 2139.83 Output Total 1350 / 1350 Balance 789.83 / 789.83 Lab / Micro Data 05/28/24 23:50 ROS Constitutional Constitutional: Denies fatigue, fever(s) or malaise Eyes Eyes: Denies change in vision ENT HEENT: Denies dizziness or headache(s) Cardiovascular Cardiovascular: Denies chest pain, dyspnea or lightheadedness Respiratory/Chest Respiratory/Chest: Denies cough or dyspnea Gastrointestinal Gastrointestinal: Denies change in bowel habits Genitourinary Genitourinary: Denies burning urination or genital lesions Integumentary Integumentary: Denies rash Neurologic Neurologic: Denies confusion, dizziness, headache(s), numbness or weakness Physical Exam Const alert and no apparent distress Narrative: Fundus firm, below umbilicus. Assessment & Plan (1) (spontaneous vaginal delivery): PLAN: Plan Discharge home
--- NOTE | 2024-05-30 14:10 | DS.PCM_ITS ---
Providers Date of Admission: 05/28/24 Date of Discharge: 05/30/24 Primary Care Physician: Dr. Veronika Loredo MD Reason For Visit: VAG DELIVERY Diagnosis Discharge Diagnosis (1) (spontaneous vaginal delivery): Status: Acute Code(s): O80 - Encounter for full-term uncomplicated delivery Plan Discharge home Medications at Discharge Home Medications desmopressin 150 mcg/spray (0.1 mL) nasal spray 4 spray intranasal DAILY PRN PRN PreOp blood clotting 07/26/21 albuterol sulfate 90 mcg/actuation aerosol inhaler 2 puff inhalation PRN PRN Wheezing #8.5 grams 07/29/23 ferrous sulfate 325 mg (65 mg iron) tablet (Iron (ferrous sulfate)) 325 mg PO DAILY 05/28/24 Hospital Course Operations None Procedures None Summary of Care Provided Minutes Spent on Discharge: 22 Hospital Course: Presented with SROM. Progressed to complete without augmentation. Delivered by . Uncomplicated . Breast feeding. Physical Exam Const alert and no apparent distress Narrative: Fundus firm, below umbilicus. Weight / BMI Weight Weight: 98.9 kg Body Mass Index (BMI) 34.1 ABG / Lab / Microbiology Data 05/28/24 23:50 D/C Instructions May resume sexual activity in: 6 weeks Please Follow Up With: Rin Bunch MD When: Follow up with our office in 1-2 and 6 weeks or as needed. [phone] Meaningful Use Info Meaningful Use Meaningful Use Diagnoses (Choose all that apply): None applicable Ischemic Stroke Statin Dosing Therapy Reference: STATIN DOSE THERAPY REFERENCE: * Patients > 75 years receive moderate or high dose statin therapy. * Patients 75 years or YOUNGER should receive HIGH intensity statin dose unless contraindicated. You will be required to document reason for non-treatment if statin daily dose does not meet guidelines. HIGH DOSE STATIN THERAPY DAILY Atorvastatin > than or = to 40 mg Rosuvastatin > than or = to 20 mg Amlodipine + Atorvastatin > than or = to 2.5/40 mg Ezetimibe + Simvastatin 10/80 mg Simvastatin 80mg Discharge Plan Admission Admit Date/Time: 05/28/24 22:57 Primary Reason for Your Visit: labor Attending Provider: Christine Phillips Primary Care Provider: Veronika Loredo Discharge Orders/Prescriptions Prescriptions: Continued desmopressin 150 mcg/spray (0.1 mL) [place],Non-Aerosol 4 spray INTRANASAL DAILY PRN PRN (Reason: PreOp blood clotting) ferrous sulfate [Iron (ferrous sulfate)] 325 mg (65 mg iron) tablet 325 mg PO DAILY albuterol sulfate 90 mcg/actuation HFA aerosol inhaler 2 puff inhalation PRN PRN (Reason: Wheezing) Qty: 8.5 2RF Discontinued ondansetron 4 mg tablet,disintegrating 4 mg PO Q8H PRN PRN (Reason: Nausea) Qty: 14 0RF Referrals / Follow Up: Veronika Loredo MD [Primary Care Provider] - Disposition Disposition (needs filled in before D/C Order can be placed): Home, Self Care
== END 2024-05-30 16:00 | disposition home or self-care (01) | DRG 561 ==
LOC: WPOUT 22:59 → WP 22:59
PROVIDERS: Admitting Provider Obstetrics & Gynecology; PCP Internal Medicine; Visit Provider Obstetrics & Gynecology
DX: O70.0 First degree perineal laceration during delivery (principal); O77.0 Labor and delivery complicated by meconium in amniotic fluid; Z3A.40 40 weeks gestation of pregnancy; Z87.891 Personal history of nicotine dependence
CPT/HCPCS: 59025; 59050; 85025; 86780; 86850; 86900; 86901; 99221; J7120; A4216; G0378; J2405